=== PATIENT | female | born 1955 | race Caucasian/White ===

== ENCOUNTER 2016-07-15 22:56 | Inpatient (IN) | payer OTHER ==
--- NOTE | ~2016-07-15 | CR72 ---
[facility]. [facility] A Service of [facility] & [facility] RADIOLOGY TEXT RESULTS PATIENT: VIBHA PRESTON LOCATION: [facility] 303- : 59 UNIT #: [id number] AGE: [address]: Wilber Shaver MD SEX: F ORDER DR: [id number] [facility] [address] [place], [place] [address] [id number] I MR#: [id number] Acc #: [id number] NAME: VIBHA PRESTON. : 1955 SEX: F STUDY DATE/TIME: 07/17/2016 11:34 UNIT: [address] ROOM: [facility] STUDY DESCRIPTION: CR Chest Single View Portable Attending Physician: Wilber Shaver M.D. Ordering Physician: Kingston Montiel M.D. Primary Care Physician: Cookie Chao M.D. MEDICAL IMAGING REPORT This report is preliminary unless electronic signature is present EXAM Chest portable 07/17/2016 1134 hours. HISTORY 60-year-old woman with shortness of air, wheezing, known mass in right upper lobe. Increased shortness of air since 07/16/2016. COMPARISON Chest x-ray 07/15/[address] angiogram chest 07/16/2016 FINDINGS Single upright portable view demonstrates median sternotomy change with valve ring present. Heart size is stable. There is diffuse masslike opacification of the right upper lung similar to the film of 07/15/16. Right lung base is clear. Left lung remains clear and there is no pleural effusion or pneumothorax. IMPRESSION No change in large masslike opacification of the right upper lung. Right lung base and left lung remains clear. No effusion or pneumothorax. Dictated by... Brittni Dominique M.D. THIS IS AN ELECTRONICALLY VERIFIED REPORT Brittni Dominique M.D. at 07/17/2016 2:31 PM DARBY/seth TD: 07/17/2016 13:08 JOB #: [id number] MEDICAL IMAGING REPORT Page 1 of 1 COPY
--- NOTE | ~2016-07-15 | CO ---
Unit #: [id number] #: [id number] Patient: VIBHA PRESTON [id number] [facility] [address] [place], [place] [address] [id number] I MR#: [id number] NAME: VIBHA PRESTON. ROOM: 303 Age: 60 Sex: F Admission Date: 07/16/2016 : 1955 Attending Physician: Wilber Shaver M.D. Primary Care Physician: Cookie Chao M.D. CONSULTATION REPORT REFERRING PHYSICIAN Dr. Chang. CHIEF COMPLAINT Right shoulder pain/ER admission to [facility]. DIAGNOSIS Right upper lobe lung mass, pathology and workup pending. HISTORY OF PRESENT ILLNESS The patient is a 60-year-old female we have been asked to see regarding radiation therapy and her disease management by Dr. Chang. She is now hospitalized, room 303 at [facility]. She presented yesterday with right shoulder pain. Imaging was obtained and was abnormal, right upper lobe mass noted, full radiology details not available. She had a prior hospitalization earlier this year at [facility] for what was felt to be pneumonia with IV antibiotics given there. Workup is under way. CT-guided biopsy was scheduled for earlier today but had to be postponed. She is now anticipating this will be tomorrow. She reports no major recent changes in breathing. Her family is with her in the hospital room. ALLERGIES No known drug allergies. HOME MEDICATIONS 1. Alprazolam. 2. Omeprazole. 3. Warfarin. PAST RADIATION HISTORY None. PAST CHEMOTHERAPY HISTORY None. PAST MEDICAL HISTORY 1. Diabetes mellitus. 2. GERD. 3. Hyperlipidemia. 4. Hypertension. 5. History of tobacco abuse. Unit #: [id number] #: [id number] Patient: VIBHA PRESTON PAST SURGICAL HISTORY 1. Mechanical heart valve replacement. 2. Cholecystectomy. 3. Hysterectomy. FAMILY AND SOCIAL HISTORY The patient is , lives locally. Prior tobacco use, stopped earlier this year. Full details will be provided in subsequent dictation. PHYSICAL EXAMINATION She is alert and oriented. No focal cranial nerve deficits apparent. No acute distress. Full examination will be done in the radiation department. IMPRESSION/PLAN I met today with the patient and several family members who were in her room. She was unable to complete the CT-guided biopsy scheduled earlier for today. This will be repeated tomorrow. I have explained that we will need to get information from this procedure as well as her imaging studies upcoming such as a head CT scan and PET scan. Bronchoscopy is also planned. We will plan to see her as an outpatient. I did take a few minutes to discuss radiation therapy in general terms. We reviewed that surgery, radiation, and chemotherapy in combinations can all be used to treat as needed and this will all be worked out as her evaluation continues. I will return tomorrow with an appointment card for her for an outpatient visit here with Dr. Martinez. Dictated by... Babak Rico M.D. SHAYY/chuy TD: 07/17/2016 14:35 JOB #: [id number] CC: Reynaldo Kurtz M.D. CONSULTATION REPORT Page 1 of 1 X X CONSULTATION REPORT
--- NOTE | ~2016-07-15 | EKG ---
PATIENT: VIBHA PRESTON UNIT #: [id number] Ventricular Rate: 99 BPM Atrial Rate: 99 BPM P-R Interval: 190 ms QRS Duration: 140 ms Q-T Interval: 414 ms QTC Calculation(Bezet): 531 ms P [place]: -28 degrees Calculated R [place]: 111 degrees Calculated T [place]: -15 degrees Diagnosis Line: Sinus rhythm with occasional Premature ventricular Diagnosis Line: complexes Diagnosis Line: Right bundle branch block Diagnosis Line: Left posterior fascicular block Diagnosis Line: Bifascicular block Diagnosis Line: T wave abnormality, consider inferior ischemia Diagnosis Line: Abnormal ECG Diagnosis Line: When compared with ECG of 21-JUN-2015 10:11, Diagnosis Line: Sinus rhythm has replaced Ectopic atrial rhythm Diagnosis Line: T wave inversion less evident in Anterior leads Diagnosis Line: Confirmed by NINA GAMBLE MD ([id number]) on 07/17/2016 Diagnosis Line: 11:13:37 PM INTERPRETING MD: MAVIS EATON
--- NOTE | ~2016-07-15 | DS ---
Unit #: [id number] #: [id number] Patient: VIBHA PRESTON [id number] [address] [address] [id number] I MR#: [id number] NAME: VIBHA PRESTON. ROOM: 303 Age: 60 Sex: F Admission Date: 07/16/2016 : 1955 Discharge Date: 07/20/2016 Attending Physician: Wilber Shaver M.D. Primary Care Physician: Cookie Chao M.D. DISCHARGE SUMMARY REVISED REPORT Addendum Added ADMISSION DIAGNOSES 1. Large right upper lobe mass with right shoulder pain, likely representing primary lung cancer. 2. Status post mitral valve replacement, tissue, anticoagulated. 3. Essential hypertension. 4. Hyperglycemia without previous history of diabetes. DISCHARGE DIAGNOSES 1. Non-small cell lung cancer, obstructing mass right upper lobe which extended out into the right mainstem bronchus occluding the distal right mainstem and proximal bronchus intermedius by approximately 50%. 2. Brain metastasis. 3. Essential hypertension. 4. Type 2 diabetes mellitus, new diagnosis. 5. Moderate aortic regurgitation. 6. Right bundle-branch block. 7. Premature ventricular complexes. 8. Chronic obstructive pulmonary disease. 9. Hypothyroidism, new diagnosis. CONSULTANTS 1. Alejandro Chang M.D., oncology service. 2. Babak Rico M.D., radiation oncology center. 3. Aristeo Morales M.D., [facility] Cardiology. 4. Kingston Montiel M.D., pulmonary medicine. PROCEDURES Fiberoptic bronchoscopy. Postoperative diagnosis: Obstructing mass occluding the right upper lobe orifice and extending into right mainstem occluding right mainstem by approximately 50%. CT-guided fine needle aspiration and core biopsy with the following anatomical pathology report: Cores of pulmonary parenchyma containing infiltrating neoplasm composed of sheets of neoplastic cells with moderately enlarged nuclei and a moderate amount of surrounding pink somewhat granular cytoplasm. The nuclear chromatin is irregular with scattered prominent nucleoli identified as well as scattered mitotic figures. Neoplasm is associated with focal necrosis and inflammation. Immunohistochemical stain report to follow as an addendum. Unit #: [id number] #: [id number] Patient: VIBHA PRESTON DIAGNOSTIC STUDIES Most recent. LABORATORY: WBC 8.4, hemoglobin 10.3, hematocrit 32.5, platelet count 226,000 and sodium 136, potassium 4.5, chloride 103, CO2 25, glucose 259, BUN 16, creatinine 0.8, calcium 8.6, magnesium 2.1, hemoglobin A1C 8.0, TSH 14.01, free T4 0.52, PT 12.7, INR 1.2. IMAGING: Portable chest x-ray 07/18/16 with stable right upper lobe mass. No pneumothorax. Left lung clear. Heart size stable. Head CT with contrast 07/18/2016. Impression: Two enhancing masses are seen in the left cerebral hemisphere with surrounding vasogenic edema, one measuring about 1.0 cm and the other about 5.0 mm. Both are strongly suspicious for metastatic disease. CTA of the chest with PE protocol, study date 07/16/2016. Impression: Large mass occupying essentially the entire right upper lobe with a broad pleural and mediastinal interface and extending into the right hilum, with obliteration of the right upper lobe pulmonary artery and bronchus well as mass effect on the right main bronchus and bronchus intermedius. Findings in keeping with malignancy. Mild to moderately prominent subcarinal node. No evidence for pulmonary embolus. Right shoulder series 07/15/2016. Impression: No acute findings. Mild AC joint arthrosis persistent opacity right upper lobe. DISCHARGE MEDICATIONS The nurse has the discharge medication reconciliation form at the time of this dictation. Medications will be added as an addendum onto this discharge summary. DISCHARGE CONDITION Stable. DISPOSITION Home with family; formerly [facility] to follow after discharge per order of Dr. Chang. FOLLOWUP 1. Patient is to call and schedule a followup appointment with her primary care physician to be seen in three to five days to follow up on new diagnosis of type 2 diabetes mellitus. Patient has been given a prescription for glucometer as well as all diabetes testing supplies that she may need over the next 60 days and is covered by her insurance plan. All further refills will be through her primary care physician. Patient is to check her blood sugar b.i.d. preferably in the morning as a fasting sample and in evening after supper. She is to keep a record of her blood glucose levels and take them to her primary care physician for her review. The RN is to instruct the patient prior to discharge on glucometer use. 2. Patient is to schedule a followup appointment and follow with Dr. Chang per his instructions. 3. Patient is to follow up with Dr. Martinez as directed for further evaluation and management of the patient's condition in preparation for radiation therapy. Patient is to follow up with Dr. Morales as scheduled by the cardiology group prior to discharge today. 4. Patient is to follow up with her primary care physician in four to six Unit #: [id number] #: [id number] Patient: VIBHA PRESTON for repeat thyroid profile and for possible further Synthroid management. This has been discussed in detail with the patient and she verbalizes understanding of these instructions. 5. Patient was evaluated and qualified for home oxygen after discharge. [facility] is aware and per review of care management note will deliver the oxygen there. Again, the patient will be followed after discharge by [facility] home health services. 6. Per review of the care management note, the patient has an appointment to follow up with Dr. Chang in his office this coming Saturday. DISCHARGE INSTRUCTIONS 1. Per review of the care management note the patient required a PA for b.i.d. Lovenox. The family was able to pay for enough Lovenox for today (Saturday), Saturday and Saturday and will follow up in Dr. Chang's office on Saturday for further arrangements for this medication. 2. Per discussion with Dr. Montiel, he will make arrangements with Dr. Inez Sanchez for the patient to have an endoscopic debulking of the right lung tumor on an outpatient basis. Once these arrangements are made he will contact the patient at home in this regard. 3. The patient's Lovenox 1 mg/kg subcu q.12 h. will need to be held per orders from Dr. Montiel prior to the endoscopic debulking procedure. HOSPITAL COURSE The patient is a 60-year-old female who presented to [facility] on the date of admission with complaints of right shoulder pain. The patient underwent a chest x-ray in the emergency department which showed minimally increased density opacity in the right upper lobe. A CT scan was subsequently performed which revealed a large right upper lobe lung mass which extended into the right hilum and obliterated the right upper lobe, pulmonary artery and bronchus. Mass effect was also noted on the right main bronchus and bronchus intermedius. CT scan was negative for pulmonary embolus. The patient's findings were noted to be consistent with malignancy. She was admitted to the hospital for further evaluation and management of her condition. Dr. Chang, oncologist was consulted for further oncology evaluation and management. Per review of Dr. Chang's consultation notes, he recommended a CT-guided biopsy as well as bronchoscopic evaluation by Dr. Darwin Montiel whom he subsequently consulted. At that time further plan would include staging with a PET CT scan as well as a CT scan of the head with contrast and the possibility of concurrent chemoradiation therapy followed by Surgery is noted. Patient subsequently underwent a CT-guided fine needle and core biopsies as well as fiberoptic bronchoscopy with result as dictated above. No additional biopsies were taken as diagnosis of non-small cell lung cancer was obtained from fine needle and core biopsies. The patient tolerated the procedure well. She was also treated with low dose IV Solu-Medrol during the hospital course and O2 to maintain oxygen saturations greater than 92%. Patient met the criteria for home oxygen and this was arranged prior to discharge today. Patient was noted to have hyperglycemia on admission. Hemoglobin A1C returned at 8.0. Patient was informed of new diagnosis of type 2 diabetes mellitus. Please see discharge medications and discharge instructions above. Registered Dietitian consult was ordered to educate the patient on constant carbohydrate diet prior to discharge. Unit #: [id number] #: [id number] Patient: VIBHA PRESTON Patient was noted to have an abnormal 12-lead EKG at the time of admission and was also noted to have frequent intermittent PVCs during the hospital course. Therefore Dr. Morales was consulted for further cardiology evaluation and management. The patient is noted to have a history of tissue (bioprosthetic mitral valve) placed in [address] Isaac at [facility]. Patient had been on anticoagulation prior to presentation to the hospital. Patient was ultimately maintained on her current dose of home beta katerina. She is noted to have normal left ventricular systolic function upon review of an echocardiogram that was obtained from Dr. Mendenhall' office. Please note Cardiology has indicated that if the patient needs a surgical resection of the mass or lobectomy she may need further cardiac workup to rule out advancement of coronary artery disease given her history as a smoker with hypertension, diabetes, as well as a strong family history of premature onset of coronary artery disease. The patient is stable from a cardiac standpoint, is to follow up with Dr. Morales as dictated above. Given the patient's arrhythmias, TSH and free T4 were evaluated. Patient's TSH and free T4 both returned abnormal. Patient was started on Synthroid as dictated above for hypothyroidism which is a new diagnosis. The patient has been advised that she is to follow up with her primary care physician in four to six weeks for repeat thyroid profile and possible adjustment of Synthroid and she has verbalized understanding of this information. Dictated by... Yessica Jay A.P.R.N. for Reynaldo Ahuja/demetrius TD: 07/22/2016 18:37 JOB #: [id number] CC: Reynaldo Kurtz M.D. Arun K. Ummat, M.D. Mark R. Jones, M.D. ADDENDUM DISCHARGE MEDICATIONS 1. Hydralazine HCL 50 mg tablet one p.o. b.i.d. 2. Emollient combination to affected areas as directed. 3. Metoprolol succinate XL (Toprol XL) 75 mg p.o. daily. 4. Lovenox 60 mg subcu q.12 hours. 5. Metformin HCL 500 mg tab one tab every evening for seven days. After one week, take one tab with breakfast and dinner. 6. Levothyroxine sodium 0.05 mg tab one p.o. daily. 7. Symbicort 160/4.5 mcg two puffs inhaled b.i.d. 8. Prednisone 10 mg tabs. Dose to be confirmed. 9. Oxycodone-ACET (Percocet) 10/325 mg tablet one p.o. q.6 hours p.r.n. pain. 10. Albuterol sulfate 0.5 mL nebulizer inhaled q.4 hours p.r.n. wheezing. 11. Lasix 20 mg p.o. daily. 12. Xanax 1 mg p.o. per home instructions p.r.n. anxiety. Unit #: [id number] #: [id number] Patient: VIBHA PRESTON Dictated by... Yessica Jay A.P.R.N. for Reynaldo Ahuja/seth TD: 07/23/2016 09:46 JOB #: [id number] CC: Reynaldo Kurtz M.D. Arun K. Ummat, M.D. Mark R. Jones, M.D. Sovera/invision Please Delete DISCHARGE SUMMARY Page 1 of 1 X Yessica Jay APRN X DISCHARGE SUMMARY
--- NOTE | ~2016-07-15 | CT16 ---
[facility] A Service of [facility] & [facility] RADIOLOGY TEXT RESULTS PATIENT: VIBHA PRESTON LOCATION: [facility] 303-01 : 59 UNIT #: [id number] AGE: [address]: Wilber Shaver MD SEX: F ORDER DR: [id number] [facility] [address] [place], [place] [address] [id number] I MR#: [id number] Acc #: [id number] NAME: VIBHA PRESTON. : 1955 SEX: F STUDY DATE/TIME: 07/16/2016 2:16 UNIT: CEDOF ROOM: 65217 STUDY DESCRIPTION: CT Angio Chest for PE Attending Physician: Wilber Shaver M.D. Ordering Physician: Dayana Bryant M.D. Primary Care Physician: Cookie Chao M.D. MEDICAL IMAGING REPORT This report is preliminary unless electronic signature is present EXAM CTA chest PE protocol INDICATIONS Right shoulder pain. Abnormal chest radiograph. PROCEDURE Contrast-enhanced CTA of the chest attention on opacification of pulmonary arteries. Coronal 3-D MIP sagittal reformatted images reconstructed and submitted. 80 mL of Isovue-370. This CT exam was performed with one or more of the following radiation dose reduction techniques: automatic exposure control, adjustment of mA and/or kV according to patient size, and iterative reconstruction. COMPARISON Two-view chest on 07/15/2016 FINDINGS Mildly degraded by respiratory motion. No evidence for pulmonary embolus. There is dense mass in the right upper lobe. This completely obliterates the right upper lobe pulmonary artery. The mass abuts the mediastinum and extends into the right hilum, overall measuring approximately 11.9 x 9.8 cm. There is some mass effect and narrowing on the right main bronchus. Complete obliteration of the right upper lobe bronchus. Mildly prominent right subcarinal node measures up 2.4 x 1.5 cm. No acute findings are seen in the included upper abdomen. No aggressive appearing bone lesion. The left lung is clear. IMPRESSION 1. Large mass occupying essentially the entire right upper lobe with a broad pleural and mediastinal interface and extending into the right STS. [facility] A Service of [facility] & [facility] RADIOLOGY TEXT RESULTS PATIENT: VIBHA PRESTON LOCATION: [facility] 303-01 : 59 UNIT #: [id number] AGE: [address]: Wilber Shaver MD SEX: F ORDER DR: hilum, with obliteration of the right upper lobe pulmonary artery and bronchus well as mass effect on the right main bronchus and bronchus intermedius. Findings in keeping with malignancy. 2. Mild to moderately prominent subcarinal node. 3. No evidence for pulmonary embolus. Dictated by... Anuel Griffin M.D. THIS IS AN ELECTRONICALLY VERIFIED REPORT Anuel Griffin M.D. at 07/16/2016 9:55 PM Bryce TD: 07/16/2016 08:13 JOB #: [id number] MEDICAL IMAGING REPORT Page 1 of 1 COPY
--- NOTE | ~2016-07-15 | CR72 ---
[facility] A Service of [facility] RADIOLOGY TEXT RESULTS PATIENT: VIBHA PRESTON LOCATION: [facility] 303- : 59 UNIT #: [id number] AGE: [address]: Wilber Shaver MD SEX: F ORDER DR: [id number] [facility] [address] [place], [place] [address] [id number] I MR#: [id number] Acc #: [id number] NAME: VIBHA PRESTON. : 1955 SEX: F STUDY DATE/TIME: 07/18/2016 12:00 UNIT: [address] ROOM: [facility] STUDY DESCRIPTION: CR Chest Single View Portable Attending Physician: Wilber Shaver M.D. Ordering Physician: Alejandro Chang M.D. Primary Care Physician: Cookie Chao M.D. MEDICAL IMAGING REPORT This report is preliminary unless electronic signature is present EXAM Portable chest. HISTORY 60-year-old female with right lung mass, status post right lung biopsy. COMPARISON Yesterday FINDINGS Stable right upper lobe mass. No pneumothorax. Left lung clear. Heart size stable. IMPRESSION Stable right upper lobe mass. Dictated by... Rico Bojorquez M.D. THIS IS AN ELECTRONICALLY VERIFIED REPORT Rico Bojorquez M.D. at 07/19/2016 8:57 AM JACK/riccardo TD: 07/18/2016 13:30 JOB #: [id number] MEDICAL IMAGING REPORT Page 1 of 1 COPY
--- NOTE | ~2016-07-15 | CR230 ---
[facility] A Service of [facility] RADIOLOGY TEXT RESULTS PATIENT: VIBHA PRESTON LOCATION: [facility] : 59 UNIT #: [id number] AGE: [address]: Wilber Shaver MD SEX: F ORDER DR: [id number] [facility] [address] [place], [place] [address] [id number] I MR#: [id number] Acc #: [id number] NAME: VIBHA PRESTON. : 1955 SEX: F STUDY DATE/TIME: 07/15/2016 23:09 UNIT: CED ROOM: 14579 STUDY DESCRIPTION: CR Shoulder Min 2 View Rt Attending Physician: Wilber Shaver M.D. Ordering Physician: Dayana Bryant M.D. Primary Care Physician: Cookie Chao M.D. MEDICAL IMAGING REPORT This report is preliminary unless electronic signature is present EXAM Right shoulder series INDICATIONS Right shoulder pain since May 2015 PROCEDURE 2 views of the right shoulder. COMPARISON Two-view chest from 06/01/2016 FINDINGS Mild AC joint arthrosis. No acute fracture or dislocation. Persistent opacity right upper lobe. IMPRESSION 1. No acute bone findings. 2. Mild AC joint arthrosis. 3. Persistent opacity right upper lobe. Dictated by... Anuel Griffin M.D. THIS IS AN ELECTRONICALLY VERIFIED REPORT Anuel Griffin M.D. at 07/16/2016 9:56 PM LI/george TD: 07/16/2016 07:08 JOB #: [id number] MEDICAL IMAGING REPORT Page 1 of 1 COPY
--- NOTE | ~2016-07-15 | HP ---
Unit #: [id number] #: [id number] Patient: VIBHA PRESTON [id number] [address] [place], [place] [address] [id number] I MR#: [id number] NAME: VIBHA PRESTON. ROOM: 56362 Age: 60 Sex: F Admission Date: 07/16/2016 : 1955 Attending Physician: Vanessa Ledesma M.D. Primary Care Physician: Cookie Chao M.D. HISTORY AND PHYSICAL CHIEF COMPLAINT Right shoulder pain with Pancoast tumor. HISTORY This 60-year-old female, status post mitral valve replacement with history of hypertension, is admitted for right shoulder pain and found to have a large right upper lobe lung mass. The patient was admitted to [facility] about six weeks ago for right upper lobe pneumonia. States that she felt improved after antibiotics at the time of discharge. Has been experiencing dyspnea on exertion recently and weight loss. A week ago noted increasing right shoulder pain. Presented to this emergency department last evening where chest x-ray showed minimally increased density opacity in the right upper lobe. Therefore, a CT scan was ordered showing a large right upper lobe lung mass extending into the right hilum obliterating the right upper lobe pulmonary artery and bronchus. There is also a mass effect on the right main bronchus and bronchus intermedius. Subcarinal lymph node was also noted to be enlarged. The patient stopped smoking eight years ago. PAST MEDICAL HISTORY 1. Mitral valve replacement for which the patient is anticoagulated. 2. Hypertension. 3. Hyperglycemia noted on admission to [facility] six weeks ago but the patient denies history of diabetes. 4. Cholecystectomy. 5. MARINA and BSO. ALLERGIES None. HOME MEDICATIONS 1. Coumadin 5 mg daily. 2. Lopressor 100 mg b.i.d. 3. Xanax 1 mg p.r.n. FAMILY HISTORY Diabetes mellitus, malignancy, congestive heart failure. SOCIAL HISTORY The patient lives with her brother. She stopped smoking eight years ago, does not drink alcohol. REVIEW OF SYSTEMS Unit #: [id number] #: [id number] Patient: VIBHA PRESTON Notable for right arm pain, weight loss, dyspnea, mitral valve replacement, hypertension, hyperlipidemia, above mentioned surgeries. All other systems were reviewed and are otherwise negative. PHYSICAL EXAMINATION GENERAL APPEARANCE: 60-year-old female, currently in no acute distress. She is intermittently tearful. VITAL SIGNS: Temperature 98.5, pulse 97, respirations 16, blood pressure 142/94. O2 saturation 97% on room air. HEENT: Eyes PERRLA. Extraocular muscles are intact. Pharynx is benign. Edentulous. NECK: Supple without adenopathy or thyromegaly. CHEST: Actually fairly clear. CARDIAC: Normal S1 and S2. [place] prosthetic valve sounds, occasionally irregular. ABDOMEN: Bowel sounds are present. No hepatosplenomegaly, tenderness or masses. EXTREMITIES: Without clubbing, cyanosis or edema. Pedal pulses are present. LYMPHS: No cervical, supraclavicular or axillary lymphadenopathy. NEUROLOGIC EXAM: The patient is awake, alert, oriented. Cranial nerves are intact. She has +5 out of 5 strength throughout. Some slight difficulty with rapid alternating movements on the right. Normal kqlmaz-es-wnka, negative pronator drift. She was able to sit up with minimal assistance. DIAGNOSTIC STUDIES LABORATORY: Admission labs - hematocrit is 41.2, normal white count and platelet count. INR is 2.7. SMA-12 - glucose I 277, sodium 134. BNP normal. LFTs are normal. IMAGING: Plain x-rays of the right shoulder show a persistent right upper lobe density but the shoulder itself only showed some mild DJD. Chest x-ray shows minimally increased dense opacity right upper lobe. CT scan negative for PE. Shows a large mass right upper lobe extending into the right hilum with obliteration of the right upper lobe pulmonary artery and bronchus and mass effect on the right main bronchus and bronchus intermedius. This is consistent with malignancy. There is an enlarged subcarinal lymph node. ASSESSMENT 1. Large right upper lobe mass with right shoulder pain, likely representing primary lung cancer. 2. Status post mitral valve replacement, anticoagulated. 3. Essential hypertension. 4. Hyperglycemia but patient denies history of diabetes mellitus. PLANS 1. Pulmonary and oncology consultation. 2. Will hold Coumadin as patient will need biopsy. Will order heparin drip when INR is less than 2.5. 3. Pain and anxiety medicines. Unit #: [id number] #: [id number] Patient: VIBHA PRESTON 4. Sliding scale insulin, and Accu-Cheks. Will obtain a hemoglobin A1c. 5. Type and screen. 6. EKG. Dictated by Reynaldo Miller/nicanor TD: 07/16/2016 05:33 JOB #: [id number] HISTORY AND PHYSICAL Page 1 of 1 X Vanessa Ledesma MD X HISTORY AND PHYSICAL
--- NOTE | ~2016-07-15 | CT134 ---
[facility]. [facility] A Service of [facility] RADIOLOGY TEXT RESULTS PATIENT: VIBHA PRESTON LOCATION: [facility] 303-01 : [birth year] UNIT #: [id number] AGE: [address]: Wilber Shaver MD SEX: F ORDER DR: [id number] [address] [place], [place] [address] [id number] I MR#: [id number] Acc #: [id number] NAME: VIBHA PRESTON. : 1955 SEX: F STUDY DATE/TIME: 07/18/2016 9:00 UNIT: [address] ROOM: [facility] STUDY DESCRIPTION: CT Guide Attending Physician: Wilber Shaver M.D. Ordering Physician: Alejandro Chang M.D. Primary Care Physician: Cookie Chao M.D. MEDICAL IMAGING REPORT This report is preliminary unless electronic signature is present EXAM CT-guided right lung biopsy 07/18/2016 INDICATIONS 60-year-old female with right lung mass suspicious for malignancy. Medications were per general anesthesia. General anesthesia was provided by the anesthesia department. PROCEDURE The risks, benefits, and alternatives of the procedure were discussed with the patient and informed consent was obtained. In the procedure room a time-out was performed confirming correct patient and procedure. All elements of maximum sterile-barrier technique utilized according guidelines appropriate for the procedure. TECHNIQUE/FINDINGS Preliminary CT scan was performed demonstrating the large right upper lobe mass. The overlying skin was prepped and draped in the usual sterile fashion. 1% lidocaine utilized to anesthetize the skin and underlying subcutaneous tissues. Next under CT guidance 17-gauge guide needle was advanced into the right upper lobe mass. Through this access an 18-gauge needle was utilized to obtain 3 core biopsies and they were sent to pathology. The needle was removed and a sterile dressing was applied. No immediate complications. IMPRESSION Technically successful CT-guided right lung mass biopsy. Dictated by... Rico Bojorquez M.D. [facility] A Service of [facility] RADIOLOGY TEXT RESULTS PATIENT: VIBHA PRESTON LOCATION: [facility] 303-01 : [birth year] UNIT #: [id number] AGE: [address]: Wilber Shaver MD SEX: F ORDER DR: THIS IS AN ELECTRONICALLY VERIFIED REPORT Rico Bojorquez M.D. at 07/19/2016 8:58 AM Amari TD: 07/18/2016 17:03 JOB #: [id number] MEDICAL IMAGING REPORT Page 1 of 1 COPY
--- NOTE | ~2016-07-15 | A ---
[facility] Nutrition Therapy DATE: 07/20/16 Patient: VIBHA Fink MOHAN Physician: VIRGIL Address: [address] Room/Bed: [address] [place] [address], Zip: [place] [address] Admit Date: 07/16/16 Date of : [birth year] Height: 5 3 Weight: 159 72.4 NUTRITIONAL ASSESSMENT: REASON: C/S DIET EDUCATION RD PROVIDED WRITTEN AND VERBAL CC DIET EDUCATION. RD SPOKE ON IMPORTANCE OF EATING A CONSISTENT MEAL SCHEDULE W/BALANCED MEALS DAILY WELL PROVIDED LIST OF FOODS TO AVOID/LIMIT AND FOODS TO EAT MORE OFTEN TO MANAGE DM. PT REPORTED DRINKING SODAS AND JUICE DAILY. PT WILLING TO CUT BACK ON SODA INTAKE AND DRINK MORE WATER. PT VERBALIZED UNDERSTANDING OF THE TOPIC. PT REPORTED NO DIET QUESTIONS AT THIS TIME. PT EXPECTED TO HAVE MILD COMPLIANCE W/DIET WHEN HOME. RD TO REMAIN AVAILABLE. RECOMMENDATIONS: 1. ADVANCE DIET TOLERATED TO CC-ENCOURAGE COMPLIANCE OF CURRENT DIET ORDER 2. RE-CONSULT RD IF FURTHER DIET EDUCATION NEEDED RD WILL F/U PER PROTOCOL Respectfully, ADELSO MCKENZIE MS, RD, LD Food and Nutritional Services [facility] cc: client file
--- NOTE | ~2016-07-15 | DS ---
Unit #: [id number] #: [id number] Patient: VIBHA PRESTON [id number] [address] [address] [id number] I MR#: [id number] NAME: VIBHA PRESTON. ROOM: 303 Age: 60 Sex: F Admission Date: 07/16/2016 : 1955 Discharge Date: 07/20/2016 Attending Physician: Wilber Shaver M.D. Primary Care Physician: Cookie Chao M.D. DISCHARGE SUMMARY ADMISSION DIAGNOSES 1. Large right upper lobe mass with right shoulder pain, likely representing primary lung cancer. 2. Status post mitral valve replacement, tissue, anticoagulated. 3. Essential hypertension. 4. Hyperglycemia without previous history of diabetes. DISCHARGE DIAGNOSES 1. Nonsquamous cell lung cancer, obstructing mass right upper lobe which extended out into the right mainstem bronchus occluding the distal right mainstem and proximal bronchus intermedius by approximately 50%. 2. Brain metastasis. 3. Essential hypertension. 4. Type 2 diabetes mellitus, new diagnosis. 5. Moderate aortic regurgitation. 6. Right bundle-branch block. 7. Premature ventricular complexes. 8. Chronic obstructive pulmonary disease. 9. Hypothyroidism, new diagnosis. CONSULTANTS 1. Alejandro Chang M.D., oncology service. 2. Babak Rico M.D., radiation oncology center. 3. Aristeo Morales M.D., [facility] Cardiology. 4. Kingston Montiel M.D., pulmonary medicine. PROCEDURES Fiberoptic bronchoscopy. Postoperative diagnosis: Obstructing mass occluding the right upper lobe orifice and extending into right mainstem occluding right mainstem by approximately 50%. CT-guided fine needle aspiration and core biopsy with the following anatomical pathology report: Cores of pulmonary parenchyma containing infiltrating neoplasm composed of sheets of neoplastic cells with moderately enlarged nuclei and a moderate amount of surrounding pink somewhat granular cytoplasm. The nuclear chromatin is irregular with scattered prominent nucleoli identified as well as scattered mitotic figures. Neoplasm is associated with focal necrosis and inflammation. Immunohistochemical stain report to follow as an addendum. DIAGNOSTIC STUDIES Most recent. Unit #: [id number] #: [id number] Patient: VIBHA PRESTON LABORATORY: WBC 8.4, hemoglobin 10.3, hematocrit 32.5, platelet count 226,000 and sodium 136, potassium 4.5, chloride 103, CO2 25, glucose 259, BUN 16, creatinine 0.8, calcium 8.6, magnesium 2.1, hemoglobin A1C 8.0, TSH 14.01, free T4 0.52, PT 12.7, INR 1.2. IMAGING: Portable chest x-ray 07/18/16 with stable right upper lobe mass. No pneumothorax. Left lung clear. Heart size stable. Head CT with contrast 07/18/2016. Impression: Two enhancing masses are seen in the left cerebral hemisphere with surrounding vasogenic edema, one measuring about 1.0 cm and the other about 5.0 mm. Both are strongly suspicious for metastatic disease. CTA of the chest with PE protocol, study date 07/16/2016. Impression: Large mass occupying essentially the entire right upper lobe with a broad pleural and mediastinal interface and extending into the right hilum, with obliteration of the right upper lobe pulmonary artery and bronchus well as mass effect on the right main bronchus and bronchus intermedius. Findings in keeping with malignancy. Mild to moderately prominent subcarinal node. No evidence for pulmonary embolus. Right shoulder series 07/15/2016. Impression: No acute findings. Mild AC joint arthrosis persistent opacity right upper lobe. DISCHARGE MEDICATIONS The nurse has the discharge medication reconciliation form at the time of this dictation. Medications will be added as an addendum onto this discharge summary. DISCHARGE CONDITION Stable. DISPOSITION Home with family; [facility] to follow after discharge per order of Dr. Chang. FOLLOWUP 1. Patient is to call and schedule a followup appointment with her primary care physician to be seen in three to five days to follow up on new diagnosis of type 2 diabetes mellitus. Patient has been given a prescription for glucometer as well as all diabetes testing supplies that she may need over the next 60 days and is covered by her insurance plan. All further refills will be through her primary care physician. Patient is to check her blood sugar b.i.d. preferably in the morning as a fasting sample and in evening after supper. She is to keep a record of her blood glucose levels and take them to her primary care physician for her review. The RN is to instruct the patient prior to discharge on glucometer use. 2. Patient is to schedule a followup appointment and follow with Dr. Chang per his instructions. 3. Patient is to follow up with Dr. Martinez as directed for further evaluation and management of the patient's condition in preparation for radiation therapy. Patient is to follow up with Dr. Morales as scheduled by the cardiology group prior to discharge today. 4. Patient is to follow up with her primary care physician in four to six weeks for repeat thyroid profile and for possible further Synthroid management. This has been discussed in detail with the patient and she verbalizes understanding of these instructions. Unit #: [id number] #: [id number] Patient: VIBHA PRESTON 5. Patient was evaluated and qualified for home oxygen after discharge. [facility] is aware and per review of care management note will deliver the oxygen there. Again, the patient will be followed after discharge by [facility] home health services. 6. Per review of the care management note, the patient has an appointment to follow up with Dr. Chang in his office this coming Saturday. DISCHARGE INSTRUCTIONS 1. Per review of the care management note the patient required a PA for b.i.d. Lovenox. The family was able to pay for enough Lovenox for today (Saturday), Saturday and Saturday and will follow up in Dr. Chang's office on Saturday for further arrangements for this medication. 2. Per discussion with Dr. Montiel, he will make arrangements with Dr. Inez Sanchez for the patient to have an endoscopic debulking of the right lung tumor on an outpatient basis. Once these arrangements are made he will contact the patient at home in this regard. 3. The patient's Lovenox 1 mg/kg subcu q.12 h. will need to be held per orders from Dr. Montiel prior to the endoscopic debulking procedure. HOSPITAL COURSE The patient is a 60-year-old female who presented to [facility] on the date of admission with complaints of right shoulder pain. The patient underwent a chest x-ray in the emergency department which showed minimally increased density opacity in the right upper lobe. A CT scan was subsequently performed which revealed a large right upper lobe lung mass which extended into the right hilum and obliterated the right upper lobe, pulmonary artery and bronchus. Mass effect was also noted on the right main bronchus and bronchus intermedius. CT scan was negative for pulmonary embolus. The patient's findings were noted to be consistent with malignancy. She was admitted to the hospital for further evaluation and management of her condition. Dr. Chang, oncologist was consulted for further oncology evaluation and management. Per review of Dr. Chang's consultation notes, he recommended a CT-guided biopsy as well as bronchoscopic evaluation by Dr. Darwin Montiel whom he subsequently consulted. At that time further plan would include staging with a PET CT scan as well as a CT scan of the head with contrast and the possibility of concurrent chemoradiation therapy followed by Surgery is noted. Patient subsequently underwent a CT-guided fine needle and core biopsies as well as fiberoptic bronchoscopy with result as dictated above. No additional biopsies were taken as diagnosis of non-small cell lung cancer was obtained from fine needle and core biopsies. The patient tolerated the procedure well. She was also treated with low dose IV Solu-Medrol during the hospital course and O2 to maintain oxygen saturations greater than 92%. Patient met the criteria for home oxygen and this was arranged prior to discharge today. Patient was noted to have hyperglycemia on admission. Hemoglobin A1C returned at 8.0. Patient was informed of new diagnosis of type 2 diabetes mellitus. Please see discharge medications and discharge instructions above. Registered Dietitian consult was ordered to educate the patient on constant carbohydrate diet prior to discharge. Patient was noted to have an abnormal 12-lead EKG at the time of admission Unit #: [id number] #: [id number] Patient: VIBHA PRESTON and was also noted to have frequent intermittent PVCs during the hospital course. Therefore Dr. Morales was consulted for further cardiology evaluation and management. The patient is noted to have a history of tissue (bioprosthetic mitral valve) placed in [address] Isaac at [facility]. Patient had been on anticoagulation prior to presentation to the hospital. Patient was ultimately maintained on her current dose of home beta katerina. She is noted to have normal left ventricular systolic function upon review of an echocardiogram that was obtained from Dr. Mendenhall' office. Please note Cardiology has indicated that if the patient needs a surgical resection of the mass or lobectomy she may need further cardiac workup to rule out advancement of coronary artery disease given her history as a smoker with hypertension, diabetes, as well as a strong family history of premature onset of coronary artery disease. The patient is stable from a cardiac standpoint, is to follow up with Dr. Morales as dictated above. Given the patient's arrhythmias, TSH and free T4 were evaluated. Patient's TSH and free T4 both returned abnormal. Patient was started on Synthroid as dictated above for hypothyroidism which is a new diagnosis. The patient has been advised that she is to follow up with her primary care physician in four to six weeks for repeat thyroid profile and possible adjustment of Synthroid and she has verbalized understanding of this information. Dictated by... Yessica Jay A.P.R.N. for Reynaldo Ahuja/demetrius TD: 07/22/2016 18:37 JOB #: [id number] CC: Reynaldo Kurtz M.D. Arun K. Ummat, M.D. Mark R. Jones, M.D. DISCHARGE SUMMARY Page 1 of 1 X Yessica Jay APRN DISCHARGE SUMMARY
--- NOTE | ~2016-07-15 | CO ---
Unit #: [id number] #: [id number] Patient: VIBHA PRESTON [id number] [facility] [address] [facility]. [place], [place] [address] [id number] MR#: [id number] NAME: VIBHA PRESTON ROOM: 303 Age: 60 Sex: F Admission Date: 07/16/2016 : 1955 Attending Physician: Wilber Shaver M.D. Primary Care Physician: Cookie Chao M.D. Consultation Date: 07/25/2016 CONSULTATION REPORT Ms. Preston is a 60-year-old female we were asked to see for right upper lobe tumor. She had been admitted to [facility] six weeks ago for right upper lobe pneumonia. She said that she was treated with antibiotics and had improved at the time of discharge. She had noted increased dyspnea and right shoulder pain and presented to the emergency room here at [facility] where a chest x-ray showed right upper lobe opacity. CT scan was done, which showed a large right upper lobe mass extending from the right hilum, obliterating the right upper lobe, pulmonary artery and bronchus. There was mass effect on the right main bronchus and bronchus intermedius. Subcarinal nodes were also enlarged. She is a reformed smoker x8 years. She had had no hemoptysis. No fever or chills. PAST MEDICAL HISTORY Significant for mitral valve replacement for which she is anticoagulated. She has a history of hypertension, history of hyperglycemia. PAST SURGICAL HISTORY Cholecystectomy, total abdominal hysterectomy and BSO. ALLERGIES No known allergies. HOME MEDICATIONS Coumadin, Lopressor, and Xanax. FAMILY HISTORY Diabetes, malignancy, congestive heart failure. SOCIAL HISTORY Lives with brother, stopped smoking eight years ago. NO alcohol or illicit drugs. REVIEW OF SYSTEMS Does have a history no rhinorrhea, nasal congestion. Has had some weight loss. Has had some right arm pain. He is dyspneic on exertion. History of mitral valve replacement. Does have a history of hypertension, hyperlipidemia. Other systems negative. PHYSICAL EXAMINATION GENERAL: Pleasant, obese, female in no distress. VITAL SIGNS: Blood pressure is 140/90, pulse is 95, respiratory rate 16 and afebrile. O2 sat 97% on room air. HEENT: Normocephalic and atraumatic. Pupils equal, round, reactive. Unit #: [id number] #: [id number] Patient: VIBHA PRESTON Sclerae are nonicteric. Nasal passages patent. Posterior pharynx clear. Mucous membranes moist. NECK: Supple. Trachea midline. No cervical or supraventricular lymphadenopathy. LUNGS: Fairly clear. CARDIAC: Regular rate and rhythm, could not appreciate murmur, rub or gallop. ABDOMEN: Nontender. Bowel sounds present. No hepatosplenomegaly. EXTREMITIES: Without clubbing, cyanosis or edema. Akash sign negative. NEUROLOGIC: Awake and oriented x3. Cranial nerves grossly intact. Muscle strength symmetric bilaterally. DIAGNOSTIC STUDIES LABORATORY STUDIES: PT INR is 2.7. BMP is remarkable for a glucose of 277, sodium 134. LFTs are normal. IMAGING STUDIES: Chest x-ray is noted. CT scan personally reviewed as noted. IMPRESSION 1. Right upper lobe mass with obstruction to right upper lobe and possibly some encroachment on the right mainstem and bronchus intermedius. 2. Probable underlying COPD. 3. Mitral valve replacement on anticoagulation. 4. Hypertension. 5. Hyperlipidemia. PLAN A CT directed biopsy has already been ordered by oncology for right upper lobe mass. Will await path. Suspect needs a bronchoscopy to evaluate airway and encroachment on right mainstem. May need some type of debulking procedure. Will make further recommendations. ADDENDUM If biopsies are done will need coverage for bacterial endocarditis with ampicillin 2 g p.o. or IV preprocedure. Coumadin is being held and ProTime is being corrected. Dictated by... Kingston Montiel M.D. YVROSE/bryanna TD: 07/26/2016 10:54 JOB #: [id number] Unit #: [id number] #: [id number] Patient: VIBHA PRESTON CONSULTATION REPORT Page 1 of 1 X Kingston Montiel MD CONSULTATION REPORT
--- NOTE | ~2016-07-15 | CO ---
Unit #: [id number] #: [id number] Patient: VIBHA PRETSON [id number] [address] [place], [place] [address] [id number] I MR#: [id number] NAME: VIBHA PRESTON ROOM: 303 Age: 60 Sex: F Admission Date: 07/16/2016 : 1955 Attending Physician: Wilber Shaver M.D. Primary Care Physician: Cookie Chao M.D. CONSULTATION REPORT REASON FOR CONSULTATION Abnormal electrocardiogram. HISTORY OF PRESENT ILLNESS This is a 60-year-old white female who is known to Dr. Aguilar Mendenhall who has a history of bioprosthetic mitral valve replacement in 2001. She is known to have paroxysmal atrial fibrillation and is on anticoagulation with Coumadin. The patient is admitted because of an episode of chest pain. At 9:30 p.m. on the night of her admission she was lying in bed. She began to have substernal chest pain that radiated to her mid back that lasted up to 5 seconds. She had no associated dyspnea, diaphoresis, nausea or palpitations. She drank milk prior to lying down. She ate earlier in the day. She was recently discharged from [facility] May of this year, and she was treated for pneumonia. Since leaving the hospital, she has had a 30-pound weight loss. She has stopped smoking a month and a half ago after that admission. During the course of her stay, CT of the chest revealed a large mass in the right upper lobe with a mediastinal interface and extending into the right hilum and obliteration of the right upper lobe pulmonary artery and bronchus. Findings were concerning for malignancy. She has been seen by oncology, and biopsy was obtained today. Planned for chemotherapy prior to potential surgery. Her INR on admission was 2.7, however. Coumadin was discontinued, and the patient has been started on a heparin drip. She developed frequent premature ventricular complexes. Her electrocardiogram was thought to be abnormal; therefore, cardiology was consulted. PAST MEDICAL HISTORY 1. Two-D echocardiogram, 05/17/2015, in Dr. Mendenhall' office showed an ejection fraction of 55% to 60% with trace tricuspid regurgitation. Bioprosthetic mitral valve that is well seated. Trace tricuspid regurgitation and moderate aortic regurgitation. No aortic stenosis. 2. Cardiac catheterization in [address] Morales, which revealed left main 30% near its ostium. LAD and right coronary artery normal. Left circumflex artery 40% to 50%. Ejection fraction 20% to 30%. Severe mitral regurgitation. 3. Lexiscan Cardiolite stress test, 06/21/2015, showed no ischemia with ejection fraction of 56%. 4. Paroxysmal atrial fibrillation, on anticoagulation with Coumadin. Unit #: [id number] #: [id number] Patient: VIBHA PRESTON 5. Mitral valve replacement with bioprosthetic valve in [address] Isaac at [facility]. 6. Hypertension. 7. Recently diagnosed diabetes mellitus type 2. 8. COPD. 9. Right bundle branch block. 10. Hyperlipidemia. 11. Former smoker. PAST SURGICAL HISTORY 1. Mitral valve replacement in 2001. 2. Hysterectomy. 3. Cholecystectomy. SOCIAL HISTORY The patient lives with her brother. She cares for a young grandson. Quit smoking in May of this year. Denies illicit drug or alcohol use. FAMILY HISTORY Positive for heart disease in both parents. Had a brother with Down syndrome who from congestive heart failure. Another brother from cancer. ALLERGIES No known drug allergies. HOME MEDICATIONS 1. Albuterol q.4 hours p.r.n. 2. Coumadin 5 mg daily. 3. Xanax 1 mg daily p.r.n. 4. Metoprolol succinate 100 mg b.i.d. 5. Furosemide 20 mg daily. REVIEW OF SYSTEMS CONSTITUTIONAL: Negative for fever or chills. Reports 30-pound weight loss in the past month and a half. No weight gain. HEENT: No headache, hearing or visual changes or difficulty with swallowing. No dizziness. CARDIOVASCULAR: Has chest pain as described in the HPI. Denies palpitations. No paroxysmal nocturnal dyspnea or orthopnea. Denies syncope or near syncope. RESPIRATORY: Positive for dyspnea with a cough. Had an episode of hemoptysis. GASTROINTESTINAL: No abdominal pain, nausea or vomiting. No constipation or melena. EXTREMITIES: Negative for lower extremity edema. PHYSICAL EXAMINATION VITAL SIGNS: Blood pressure 144/83, heart rate 67, temperature 98, BMI 30. GENERAL: This is a pleasant, mildly obese, 60-year-old white female who is in no acute respiratory distress. NEUROLOGIC: She is awake, alert and oriented. There are no focal weaknesses. NECK: Trachea is midline. No thyromegaly or lymphadenopathy. No jugular venous distention. HEART: S1, S2. Heart sounds are normal with prosthetic valve normal. A grade 2/6 systolic murmur heard best at the right systolic border. Regular rate and rhythm. Unit #: [id number] #: [id number] Patient: VIBHA PRESTON CHEST: Clear to auscultation without rales, rhonchi or wheezing. ABDOMEN: Soft, nontender with bowel sounds present. EXTREMITIES: Without leg edema. SKIN: Warm and dry. DIAGNOSTIC STUDIES LABORATORY STUDIES: Hemoglobin 12, hematocrit 36.8, platelet count 264, white count 7.9. Sodium 132, potassium 4, BUN 8, creatinine 0.8, glucose 164, magnesium 1.8. TSH 14.01, free T4 0.52. Hemoglobin A1C 8. BNP 31. IMAGING: CT angio of the chest shows a large mass occupying essentially the entire right upper lobe with a broad pleural and mediastinal interface and extending into the right hilum, with obliteration of the right upper lobe pulmonary artery and bronchus. Findings in keeping with malignancy. No evidence for pulmonary embolism. CARDIOVASCULAR STUDIES: Electrocardiogram shows normal sinus rhythm with a rate of 99 beats per minute with right bundle branch block, left posterior fascicular block, premature ventricular complexes, and there are T wave inversions in the inferior leads. Rhythm strips show bigeminal premature ventricular complexes. IMPRESSION 1. Probable right upper lobe malignancy. 2. Status post bioprosthetic mitral valve prosthesis with severe mitral regurgitation in 2001. 3. Moderate aortic regurgitation. 4. Right bundle branch block. 5. Premature ventricular complexes. 6. Chest pain questionably secondary to GERD versus coronary artery disease. 7. COPD. PLAN 1. Cardiology was consulted for frequent premature ventricular complexes. Will continue on current beta-katerina. 2. Review of echocardiogram from Dr. Mendenhall' office shows normal left ventricular systolic function. 3. If the patient needs surgical resection of the mass or lobectomy, she may need further cardiac workup to rule out advancement of coronary artery disease in a smoker, hypertensive, diabetic with a strong family history of premature onset of coronary artery disease. 4. Will follow the patient. 5. Thank you for allowing us to assist with this patient's care. Dictated by... Luke Lopez A.P.R.N. for Reynaldo Sharma/dayne TD: 07/18/2016 07:36 JOB #: [id number] Unit #: [id number] #: [id number] Patient: VIBHA PRESTON CONSULTATION REPORT Page 1 of 1 X Luke Lopez APRN X CONSULTATION REPORT
--- NOTE | ~2016-07-15 | CR63 ---
[facility] A Service of [facility] & [facility] RADIOLOGY TEXT RESULTS PATIENT: VIBHA PRESTON LOCATION: [facility] [address] : [birth year] UNIT #: [id number] AGE: [address]: Wilber Shaver MD SEX: F ORDER DR: [id number] [facility] [address] [facility]. [place], [place] [address] [id number] I MR#: [id number] Acc #: [id number] NAME: VIBHA PRESTON : 1955 SEX: F STUDY DATE/TIME: 07/15/2016 23:10 UNIT: CEDOF ROOM: 68815 STUDY DESCRIPTION: CR Chest 2 View Attending Physician: Wilber Shaver M.D. Ordering Physician: Dayana Bryant M.D. Primary Care Physician: Cookie Chao M.D. MEDICAL IMAGING REPORT This report is preliminary unless electronic signature is present EXAM Two-view chest INDICATIONS Right shoulder pain since May 2016. PROCEDURE Frontal lateral views of the chest COMPARISON 06/01/2016 FINDINGS Persistent opacity right upper lobe. Slightly progressed into the right apex. Heart size is stable and there is no new dense consolidation left lung. IMPRESSION Minimally increasing dense opacity in the right upper lobe. Dictated by... Anuel Griffin M.D. THIS IS AN ELECTRONICALLY VERIFIED REPORT Anuel Griffin M.D. at 07/16/2016 9:56 PM LI/george TD: 07/16/2016 07:10 JOB #: [id number] MEDICAL IMAGING REPORT Page 1 of 1 COPY
--- NOTE | ~2016-07-15 | CT69 ---
[facility] A Service of [facility] RADIOLOGY TEXT RESULTS PATIENT: VIBHA PRESTON LOCATION: [facility] 303- : [birth year] UNIT #: [id number] AGE: [address]: Wilber Shaver MD SEX: F ORDER DR: [id number] [place] [id number] [facility]. [place], [place] [address] [id number] I MR#: [id number] Acc #: [id number] NAME: VIBHA PRESTON. : 1955 SEX: F STUDY DATE/TIME: 07/18/2016 8:37 UNIT: [address] ROOM: [facility] STUDY DESCRIPTION: CT Head W Contrast Attending Physician: Wilber Shaver M.D. Ordering Physician: Alejandro Chang M.D. Primary Care Physician: Cookie Chao M.D. MEDICAL IMAGING REPORT This report is preliminary unless electronic signature is present EXAM Head CT with contrast HISTORY Lung mass. Evaluate for brain metastasis suspected. TECHNIQUE Axial images were obtained with intravenous contrast. 100 mL of Isovue was used. This CT exam was performed with one or more of the following radiation dose reduction techniques: automatic exposure control, adjustment of mA and/or kV according to patient size, and iterative reconstruction. FINDINGS There is a 1.0 cm ring enhancing mass in the left frontal cortex with surrounding vasogenic edema consistent with metastatic disease. There is also a smaller 5.0 mm enhancing mass in the left insular area posteriorly with mild edema, also consistent with metastasis. No masses are seen in the posterior fossa. No bony lesions are seen. IMPRESSION 2 enhancing masses are seen in the left cerebral hemisphere with surrounding vasogenic edema, 1 measuring about 1.0 cm and the other about 5.0 mm. Both are strongly suspicious for metastatic disease. Dictated by... Kaden Gaytan M.D. THIS IS AN ELECTRONICALLY VERIFIED REPORT Kaden Gaytan M.D. at 07/19/2016 1:05 PM RLNava/bertha [facility] A Service of [facility] RADIOLOGY TEXT RESULTS PATIENT: VIBHA PRESTON LOCATION: [facility] 303-01 : [birth year] UNIT #: [id number] AGE: [address]: Wilber Shaver MD SEX: F ORDER DR: TD: 07/18/2016 10:32 JOB #: [id number] MEDICAL IMAGING REPORT Page 1 of 1 COPY
--- NOTE | ~2016-07-15 | OR ---
Unit #: [id number] #: [id number] Patient: VIBHA PRESTON [id number] [address] [place], [place] [address] [id number] I MR#: [id number] NAME: VIBHA PRESTON ROOM: 303 Date of Procedure: 07/19/2016 Admission Date: 07/16/2016 Surgeon: Kingston Montiel M.D. : 1955 Attending Physician: Wilber Shaver M.D. Primary Care Physician: Cookie Chao M.D. OPERATIVE REPORT PROCEDURE PERFORMED Fiberoptic bronchoscopy. INDICATIONS FOR PROCEDURE A 60-year-old white female with right upper lobe mass, rule out obstruction. PREOPERATIVE DIAGNOSIS Lung cancer, right upper lobe. POSTOPERATIVE DIAGNOSIS Obstructing mass occluding the right upper lobe orifice and extending into right mainstem occluding right mainstem by approximately 50%. DESCRIPTION OF PROCEDURE Procedure was done under MAC. The patient remained on supplemental oxygen. O2 saturations remained greater than 90%. The fiberoptic bronchoscope was introduced through the oral cavity via the bite block and advanced down the level of vocal cords. Vocal cords moved normally to phonation and breathing. Vocal cords were anesthetized with 1% lidocaine. The bronchoscope was passed through the vocal cords into the trachea. Trachea appeared normal. Main samantha was sharp. There was obstructing mass to the right upper lobe, which extended out into the right mainstem occluding the distal right mainstem and proximal bronchus intermedius by approximately 50%. The bronchus intermedius nor right lower lobe or middle lobe were visualized due to the size of tumor or obstruction to the airway. The bronchoscope was withdrawn to the main samantha and advanced down the left mainstem, which appeared normal. The left lower lobe was normal and the right upper lobe was normal without endobronchial lesions or mucosal abnormalities. The bronchoscope was withdrawn. The patient tolerated the procedure well. No biopsies were taken as she already had a diagnosis from C-directed fine needle and core biopsies. ADDENDUM The patient has a history of mitral valve replacement. She received ampicillin 2 g IV prior to bronchoscopy for endocarditis prophylaxis. Dictated by... Kingston Montiel M.D. Unit #: [id number] #: [id number] Patient: VIBHA PRESTON YVROSE/evangelistl TD: 07/20/2016 00:38 JOB #: [id number] CC: Reynaldo Dailey M.D. OPERATIVE REPORT Page 1 of 1 X Kingston Montiel MD PROCEDURE OPERATIVE NOTE
--- NOTE | ~2016-07-15 | CO ---
Unit #: [id number] #: [id number] Patient: LATOYA PRESTON [id number] [address] [address] [id number] I MR#: [id number] NAME: LATOYA PRESTON. ROOM: 303 Age: 60 Sex: F Admission Date: 07/16/2016 : 1955 Attending Physician: Wilber Shaver M.D. Primary Care Physician: Cookie Chao M.D. CONSULTATION REPORT REQUESTING PHYSICIAN Dr. Shaver. REASON FOR CONSULTATION Right upper lobe lung mass. HISTORY OF PRESENT ILLNESS Ms. Latoya Preston is 60 years old with a history of mitral valve replacement and hypertension, who was admitted to the emergency room with right shoulder pain. CT angio of the chest done July 16, 2016 with a very large mass in the right upper lobe abutting the mediastinum, extending in the right hilum, overall measuring 11.9 to 9.8 cm with mass effect and narrowing of the right mainstem bronchus. There was a mildly prominent right subcarinal node measuring 2.4 to 1.5 cm. There was no involvement of bone. Ms. Preston tells me she has had no changes in appetite or weight but has been feeling fatigued. She was hospitalized June 03 to [facility] for her community-acquired pneumonia, treated with antibiotics while being hospitalized for a week. She has an occasional cough, no hemoptysis, no pain radiating down the arm. PAST MEDICAL HISTORY 1. 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 2. Hypertension. PAST SURGICAL HISTORY 1. Cholecystectomy. 2. Total abdominal hysterectomy and bilateral salpingo-oophorectomy. ALLERGIES She has no known medication allergies. HOME MEDICATIONS 1. Coumadin. 2. Lopressor. 3. Xanax. She monitors her pro time at home. FAMILY HISTORY Notable for metastatic lung cancer in brother. SOCIAL HISTORY She quit smoking eight years ago, smoking about half pack a day, Unit #: [id number] #: [id number] Patient: LATOYA PRESTON occasionally smokes a cigarette. She is single, . Lives with her brother. She has an adopted child, 4 years old, whom she is the primary caregiver. REVIEW OF SYSTEMS A 14-point review of systems taken. CONSTITUTIONAL: As discussed. EYES: Negative. EARS, NOSE, MOUTH, THROAT: Negative. CARDIOVASCULAR: Negative. RESPIRATORY: Chronic shortness of breathing without any recent change. GASTROINTESTINAL: Negative. GENITOURINARY: Negative. NEUROLOGIC: Negative. ALLERGY: Negative. LYMPHATIC: Negative. SKIN: Negative. ENDOCRINE: Blood sugars have been high during her [facility] stay, although she is not a known diabetic. PHYSICAL EXAMINATION GENERAL: On examination, she is a pleasant middle-aged woman. Performance is a 1. VITAL SIGNS: Temperature is 97.6, pulse 103, respiratory rate 19, blood pressure 149/102. Pain is 9 on a scale of 10. She weighs 140 pounds. HEENT: Pupils equal, reactive well to light. Mucous membranes are moist. NECK: No adenopathy, JVD, thyromegaly. CARDIOVASCULAR: First and second heart sounds heard and regular with no murmurs, gallops, or rubs. LUNGS: Chest expansion is symmetric. There is markedly decreased air entry on the right side. ABDOMEN: Soft, nontender. Bowel sounds active. EXTREMITIES: Warm with good with good pulses. No edema, cyanosis, clubbing. NEUROLOGIC: She is awake, alert, oriented x3 without any focal findings. SKIN: Negative. LYMPHATIC: Negative. DIAGNOSTIC STUDIES LABORATORY: White count 8.7, hemoglobin 13.2, platelet count 279,000. Pro time is 29.3, INR 2.7, PTT 45.7. Basic metabolic panel shows a BUN of 14, creatinine 0.8. LFTs are normal. BNP is 31. IMAGING: CT angio chest (1) : The findings were very large right upper lobe mass with a subcarinal lymph node. I gave copies of the images to patient and sister. ASSESSMENT AND PLAN Ms. Preston is 60 years old with a history of hypertension with a large right upper lobe lung mass with right shoulder pain consistent with a (2) tumor. She also has a mitral valve replacement and is chronically anticoagulated with warfarin which will need to be reversed transiently for biopsy. The best option would be to start on heparin weight based protocol as started. Discontinue the heparin and use fresh frozen plasma to reverse the pro time before resumption. I will ask interventional radiology for CT-guided biopsy and she will also require a bronchoscopy with evaluation and she is to be seen by Dr. Darwin Montiel. I have an extensive discussion of the situation with patient and sister. We Unit #: [id number] #: [id number] Patient: LATOYA PRESTON discussed that after biopsy confirmation of diagnosis, plans would be to stage with a PET CT scan as well as CT scan of the head to be done with contrast given that she has an artificial valve. Discussed about concurrent chemoradiation therapy followed by surgery if feasible. Thank you for allowing me to participate in her care. I will follow with you. Dictated by... Reynaldo Dailey/chuy TD: 07/16/2016 15:11 JOB #: [id number] CONSULTATION REPORT Page 1 of 1 X Alejandro Chang MD X CONSULTATION REPORT
[~2016-07-15 22:56] MED LIST: CLEOCIN150 MG PO; COUMADIN PO; KEFLEX PO; LIDODERM30 EA TOP; LODINE XL PO; TOPROL XL PO; TYLENOL/CODEINE1 TA1 PO
[2016-07-16 01:12] LABS: BASOPHIL# 0.1 X10e3 (0-0.3); BASOPHIL% 0.6 % (0-2.5); EOSINOPHIL# 0.4 X10e3 (0-0.7); EOSINOPHIL% 4.2 % (0.0-7.0); HEMATOCRIT 41.2 % (35.0-45.0); HEMOGLOBIN 13.2 gm/dL (12.0-16.0); LYMPHOCYTE# 2.8 X10e3 (1.0-3.5); LYMPHOCYTE% 31.9 % (17.0-45.0); MEAN CELL VOLUME 89.2 FL (83-96); MEAN CORPUSCULAR HEMOGLOBIN 28.7 PG (28-34); MEAN CORPUSCULAR HGB CONC 32.2 g/dL (30-36); MEAN PLATELET VOLUME 7.4 FL (6.5-11.5); MONOCYTE# 0.6 X10e3 (0-1.0); MONOCYTE% 6.4 % (3.0-12.0); NEUTROPHIL# 4.9 X10e3 (1.5-7.1); NEUTROPHIL% 56.9 % (40-75); PLATELET COUNT 279 X10e3 (140-420); RED BLOOD COUNT 4.62 X10e (3.90-5.30); RED CELL DISTRIBUTION WIDTH 15.5 % (11.0-15.5); WHITE BLOOD COUNT 8.7 X10e3 (4.0-10.5)
[2016-07-16 01:13] LABS: DIFF IND NO
[2016-07-16 01:24] LABS: INR 2.7; PARTIAL THROMBOPLASTIN TIME 45.7 SECONDS (23.5-31.3); PROTHROMBIN TIME (PATIENT) 29.3 SECONDS (9.6-11.5)
[2016-07-16 01:40] LABS: ALBUMIN SERUM 3.5 g/dL (3.5-5.0); BILIRUBIN, DIRECT 0.1 mg/dL (0.0-0.2); BILIRUBIN,INDIRECT 0.8 mg/dL (0.0-0.9); BILIRUBIN,TOTAL 0.9 mg/dL (0.2-2.0); BUN/CREATININE RATIO 17.5; CALCIUM SERUM 9.1 mg/dL (8.4-10.2); CREATININE SERUM 0.8 mg/dL (0.6-1.4); GLOM FILT RATE Estimated 81.3 mL/min (>60); MAGNESIUM 1.8 mg/dL (1.6-3.0)
[2016-07-16 05:36] LABS: INR 2.7
[2016-07-17 05:45] LABS: HEMATOCRIT 36.8 % (35.0-45.0); MEAN CORPUSCULAR HEMOGLOBIN 28.9 PG (28-34); MEAN CORPUSCULAR HGB CONC 32.5 g/dL (30-36); RED BLOOD COUNT 4.14 X10e (3.90-5.30); RED CELL DISTRIBUTION WIDTH 15.7 % (11.0-15.5); WHITE BLOOD COUNT 7.9 X10e3 (4.0-10.5)
[2016-07-17 06:28] LABS: INR 1.6; PARTIAL THROMBOPLASTIN TIME 36.8 SECONDS (23.5-31.3); PROTHROMBIN TIME (PATIENT) 17.3 SECONDS (9.6-11.5)
[2016-07-17 14:16] LABS: CALCIUM SERUM 8.1 mg/dL (8.4-10.2); CREATININE SERUM 0.8 mg/dL (0.6-1.4); GLOM FILT RATE Estimated 81.3 mL/min (>60); MAGNESIUM 1.8 mg/dL (1.6-3.0)
[2016-07-17 14:46] LABS: FREE THYROXIN (T4) 0.52 ng/dL (0.58-1.64); THYROID STIMULATING HORMONE 14.01 uIU/ml (0.34-5.60)
[2016-07-18 07:11] LABS: HEMATOCRIT 32.8 % (35.0-45.0); HEMOGLOBIN 10.6 gm/dL (12.0-16.0); MEAN CELL VOLUME 89.1 FL (83-96); MEAN CORPUSCULAR HEMOGLOBIN 28.7 PG (28-34); MEAN CORPUSCULAR HGB CONC 32.2 g/dL (30-36); MEAN PLATELET VOLUME 7.3 FL (6.5-11.5); RED BLOOD COUNT 3.68 X10e (3.90-5.30); RED CELL DISTRIBUTION WIDTH 15.2 % (11.0-15.5); WHITE BLOOD COUNT 5.9 X10e3 (4.0-10.5)
[2016-07-18 07:23] LABS: INR 1.3; PARTIAL THROMBOPLASTIN TIME 33.8 SECONDS (23.5-31.3); PROTHROMBIN TIME (PATIENT) 13.9 SECONDS (9.6-11.5)
[2016-07-18 07:41] LABS: BUN/CREATININE RATIO 16.66; CALCIUM SERUM 8.4 mg/dL (8.4-10.2); CREATININE SERUM 0.6 mg/dL (0.6-1.4); GLOM FILT RATE Estimated 100.5 mL/min (>60)
[2016-07-19 06:55] LABS: INR 1.2; PARTIAL THROMBOPLASTIN TIME 27.8 SECONDS (23.5-31.3); PROTHROMBIN TIME (PATIENT) 12.9 SECONDS (9.6-11.5)
[2016-07-20 05:39] LABS: HEMATOCRIT 32.5 % (35.0-45.0); HEMOGLOBIN 10.3 gm/dL (12.0-16.0); MEAN CELL VOLUME 90.2 FL (83-96); MEAN CORPUSCULAR HEMOGLOBIN 28.6 PG (28-34); MEAN CORPUSCULAR HGB CONC 31.7 g/dL (30-36); MEAN PLATELET VOLUME 7.8 FL (6.5-11.5); RED BLOOD COUNT 3.6 X10e (3.90-5.30); RED CELL DISTRIBUTION WIDTH 16.1 % (11.0-15.5); WHITE BLOOD COUNT 8.4 X10e3 (4.0-10.5)
[2016-07-20 05:46] LABS: INR 1.2; PROTHROMBIN TIME (PATIENT) 12.7 SECONDS (9.6-11.5)
[2016-07-20 06:07] LABS: CALCIUM SERUM 8.6 mg/dL (8.4-10.2); CREATININE SERUM 0.8 mg/dL (0.6-1.4); GLOM FILT RATE Estimated 81.3 mL/min (>60); MAGNESIUM 2.1 mg/dL (1.6-3.0); POTASSIUM 4.5 mmol/L (3.5-5.1)
[2016-07-20] MEDS ORDERED: LOVENOX SUBQ (16:40)
[2016-07-20] MEDS ORDERED: [UNRECOGNIZED DRUG - OTHER] (16:50)
[2016-08-06] MEDS ORDERED: SYMBICORT INH (16:35)
[2016-08-06] MEDS ORDERED: HYDRALAZINE HCL50 MG PO (16:51)
[2016-09-26] MEDS ORDERED: ALBUTEROL 0.5ML INH (05:33)
[2016-09-26] MEDS ORDERED: FOLIC ACID PO (09:21)
[2016-09-26] MEDS ORDERED: ZOFRAN PO (09:22)
[2016-09-26] MEDS ORDERED: BENADRYL25 M1 PO (09:23)
[2016-09-26] MEDS ORDERED: PERCOCET10 PO (16:33)
[2016-09-26] MEDS ORDERED: PREDNISONE10 M1 PO (16:34)
[2016-09-26] MEDS ORDERED: SYNTHROID0.05 MG PO (16:36)
[2016-09-26] MEDS ORDERED: METFORMIN HCL500 M3 PO (16:38)
[2016-09-26] MEDS ORDERED: TOPROL XL PO (16:49)
[2016-09-26] MEDS ORDERED: ALPRAZOLAM PO (18:12)
[2016-09-26] MEDS ORDERED: LASIX PO (21:54)
[2016-12-21] MEDS ORDERED: PREDNISONE2.5 MG PO (22:04)
[2016-12-21] MEDS ORDERED: ALBUTEROL20 ml INH (22:06)
[2016-12-21] MEDS ORDERED: AMLODIPINE BESYL5 MG PO (22:07)
[2016-12-21] MEDS ORDERED: SYNTHROID0.05 MG PO (22:08)
[2016-12-21] MEDS ORDERED: FERROUS GLUCON324 M1 PO (22:10)
[2016-12-21] MEDS ORDERED: FOLIC ACID1 MG PO (22:10)
[2016-12-21] MEDS ORDERED: FUROSEMIDE40 MG PO (22:11)
[2016-12-21] MEDS ORDERED: WARFARIN SODIUM3 M1 PO (22:11)
[2016-12-21] MEDS ORDERED: PROTONIX PO (22:12)
[2016-12-21] MEDS ORDERED: HYDRALAZINE HCL50 MG PO (22:12)
[2016-12-21] MEDS ORDERED: COMPAZINE5 M2 PO (22:13)
[2016-12-21] MEDS ORDERED: FLUOXETINE HCL20 M1 PO (22:14)
[2016-12-21] MEDS ORDERED: POLYETHYLENE G500 G1 PO (22:18)
[2016-12-21] MEDS ORDERED: BENADRYL ALLERG25 M1 PO (22:19)
[2016-12-21] MEDS ORDERED: PHENERGAN25 M1 PO (22:20)
[2016-12-21] MEDS ORDERED: OXYCODONE HCL15 MG PO (22:22)
[2016-12-21] MEDS ORDERED: FENTANYL1 EAC1 TOP (22:27)
[2016-12-24] MEDS ORDERED: PREDNISONE PO (10:52)
[2016-12-24] MEDS ORDERED: MAG-OX 400400 M1 PO (10:52)
[2016-12-24] MEDS ORDERED: SPIRIVA18 MCG INH (10:54)
[2016-12-24] MEDS ORDERED: LOPRESSOR PO (10:56)
[2016-12-24] MEDS ORDERED: LEVAQUIN750 MG PO (10:57)
[2016-12-24] MEDS ORDERED: KCL PO (10:58)
[2017-01-08] MEDS ORDERED: LASIX PO (11:18)
[2017-01-08] MEDS ORDERED: FOLIC ACID1 MG PO (11:18)
[2017-01-08] MEDS ORDERED: PROTONIX PO (11:18)
[2017-01-08] MEDS ORDERED: PATIENT'S PHARMACY (11:18)
[2017-01-08] MEDS ORDERED: PHENERGAN25 MG PO (11:19)
[2017-01-08] MEDS ORDERED: COUMADIN PO (11:19)
[2017-01-08] MEDS ORDERED: SYNTHROID0.05 MG PO (11:19)
[2017-01-08] MEDS ORDERED: LOPRESSOR PO (11:20)
[2017-01-08] MEDS ORDERED: HYDRALAZINE HCL50 MG PO (11:20)
[2017-01-08] MEDS ORDERED: MAG-OX 400400 M1 PO (11:21)
[2017-01-08] MEDS ORDERED: KCL PO (11:21)
[2017-01-08] MEDS ORDERED: ONDANSETRON ODT4 MG PO (11:21)
[2017-01-08] MEDS ORDERED: NORVASC PO (11:21)
[2017-01-08] MEDS ORDERED: PROZAC10 MG PO (11:22)
[2017-01-08] MEDS ORDERED: VALIUM10 M1 PO (11:22)
[2017-01-08] MEDS ORDERED: PREDNISONE (11:22)
[2017-01-08] MEDS ORDERED: SOTALOL AF80 M1 PO (11:22)
[2017-01-08] MEDS ORDERED: DURAGESIC1 EAC1 TOP (11:23)
[2017-01-08] MEDS ORDERED: BENADRYL25 M1 PO (11:23)
== END 2016-07-20 17:55 | disposition home health service (06) | DRG 180 ==
LOC: CED 22:56 → CEDOF 07-16 03:50 → C3A PCU 07-16 09:59
PROVIDERS: Family Medicine; Internal Medicine; Internal Medicine Hematology & Oncology; Nurse Practitioner; Obstetrics & Gynecology Reproductive Endocrinology; Student in an Organized Health Care Education/Training Program
PROC: B32TYZZ Computerized Tomography (CT Scan) of Left Pulmonary Artery using Other Contrast (ICD-10-PCS; 2016-07-16)
PROC: B32SYZZ Computerized Tomography (CT Scan) of Right Pulmonary Artery using Other Contrast (ICD-10-PCS; 2016-07-16)
PROC: 0BBK3ZX Excision of Right Lung, Percutaneous Approach, Diagnostic (ICD-10-PCS; 2016-07-18)
PROC: 0BJ08ZZ Inspection of Tracheobronchial Tree, Via Natural or Artificial Opening Endoscopic (ICD-10-PCS; principal; 2016-07-19 10:00)
DX: C34.11 Malignant neoplasm of upper lobe, right bronchus or lung (principal); J96.00 Acute respiratory failure, unspecified whether with hypoxia or hypercapnia; I48.0 Paroxysmal atrial fibrillation; E66.01 Morbid (severe) obesity due to excess calories; C79.31 Secondary malignant neoplasm of brain; J44.1 Chronic obstructive pulmonary disease with (acute) exacerbation; I10 Essential (primary) hypertension; Z95.2 Presence of prosthetic heart valve; Z79.01 Long term (current) use of anticoagulants; Z90.49 Acquired absence of other specified parts of digestive tract; Z90.710 Acquired absence of both cervix and uterus; Z87.891 Personal history of nicotine dependence; Z83.3 Family history of diabetes mellitus; I35.1 Nonrheumatic aortic (valve) insufficiency; I25.10 Atherosclerotic heart disease of native coronary artery without angina pectoris; E11.9 Type 2 diabetes mellitus without complications; E78.5 Hyperlipidemia, unspecified; I45.10 Unspecified right bundle-branch block; I49.3 Ventricular premature depolarization; R94.31 Abnormal electrocardiogram [ECG] [EKG]; Z68.29 Body mass index [BMI] 29.0-29.9, adult
CPT/HCPCS: 36415; 70460; 71010; 71020; 71275; 73030; 77012; 80048; 80076; 82947; 83036; 83735; 83880; 84439; 84443; 85025; 85027; 85610; 85730; 86850; 86900; 86901; 88305; 88341; 88342; 93005; 94640; 94664; 94760; 96360; 97162; 99285; G8978-GP; G8979-GP; G8980-GP; J0171; J0290; J0330; J1644; J1650; J1815; J2250; J2270; J2405; J2920; J3010; Q9967

== ENCOUNTER → 2016-08-06 | Outpatient (CLI) | payer OTHER ==
[~2016-08-06] MED LIST changes: +ALBUTEROL 0.5ML INH; +ALBUTEROL2.5 MG/3 M INH; +ALBUTEROL20 ml INH; +ALPRAZOLAM PO; +AMLODIPINE BESYL5 MG PO; +BENADRYL ALLERG25 M1 PO; +BENADRYL25 M1 PO; +BROVANA15 MCG/2 M INH; +BUDESONIDE0.5 MG/2 M INH; +COMPAZINE5 M1 PO; +COMPAZINE5 M2 PO; +DIPHENHYDRAMINE25 M1 PO; +DUONEB INH; +DURAGESIC1 EAC1 TOP; +FENTANYL1 EAC1 TOP; +FERROUS GLUCON324 M1 PO; +FLUOXETINE HCL20 M1 PO; +FOLIC ACID PO; +FOLIC ACID1 MG PO; +FUROSEMIDE40 MG PO; +HYDRALAZINE HCL50 MG PO; +KCL PO; +LASIX PO; +LASIX20 MG PO; +LEVAQUIN750 MG PO; +LEVOTHYROXINE50 MCG PO; +LOPRESSOR PO; +LOVENOX SUBQ; +MAG-OX 400400 M1 PO; +METFORMIN HCL500 M3 PO; +MIRALAX17 GM PO; +NORVASC PO; +ONDANSETRON ODT4 MG PO; +OXYCODONE HCL15 MG PO; +PANTOPRAZOLE SO40 MG PO; +PATIENT'S PHARMACY; +PERCOCET10 PO; +PHENERGAN25 M1 PO; +PHENERGAN25 MG PO; +POLYETHYLENE G500 G1 PO; +PREDNISONE; +PREDNISONE PO; +PREDNISONE10 M1 PO; +PREDNISONE2.5 MG PO; +PREDNISONE5 M1 PO; +PROTONIX PO; +PROZAC10 MG PO; +SOTALOL AF80 M1 PO; +SPIRIVA18 MCG INH; +SYMBICORT INH; +SYNTHROID0.05 MG PO; +TYL325 PO; +VALIUM10 M1 PO; +WARFARIN SODIUM3 M1 PO; +XANAX1 MG PO; +ZOFRAN PO; +[UNRECOGNIZED DRUG - OTHER]
--- NOTE | ~2016-08-06 | XA91 ---
[facility] A Service of [facility] & [facility] RADIOLOGY TEXT RESULTS PATIENT: VIBHA PRESTON LOCATION: [facility] : 59 UNIT #: [id number] AGE: [address]: Alejandro Chang MD SEX: F ORDER DR: [id number] [facility] [address] [facility]. [place], [place] [address] [id number] O MR#: [id number] Acc #: [id number] NAME: VIBHA PRESTON. : 1955 SEX: F STUDY DATE/TIME: 08/06/2016 11:21 UNIT: [facility] ROOM: STUDY DESCRIPTION: XA CVC Tunneled W Port Attending Physician: Alejandro Chang M.D. Ordering Physician: Alejandro Chang M.D. Primary Care Physician: Cookie Chao M.D. MEDICAL IMAGING REPORT This report is preliminary unless electronic signature is present EXAM MediPort insertion under ultrasound and fluoroscopy. HISTORY Lung cancer. Ms. Preston is 61-year-old female recently diagnosed lung cancer who and is referred for MediPort placement. PROCEDURE The procedure, attendant risks, and options were discussed with the patient. She understands, wishes to proceed and gives consent. Due to the lack of venous access, a PICC line was placed under ultrasound and fluoroscopy immediately prior to this procedure. Please see that dictation. The patient was placed in the supine position in the angio suite. The chest and right neck was prepped with chlorhexidine solution. This area was then prepped. IV conscious sedation was administered consisting of IV Versed and fentanyl. The patient was monitored by the IR nurse during the entire procedure. Sedation time was 1 hour. Full sterile barrier technique, including caps, gowns, masks, gloves, and shoe covers were utilized. Initially, the right internal jugular vein was addressed by ultrasound. It is patent and a micropuncture was performed under local anesthesia with lidocaine. An 8-Czech introducer sheath was subsequently placed. At this point, the right anterior chest wall was anesthetized with 1% lidocaine with epinephrine. A 3-cm horizontal incision was made parallel to the clavicle and a pocket bluntly dissected and subsequently flushed. The port was sewn to the deep fascia utilizing 3-0 Vicryl suture, a tunneler was passed through the right IJ and the catheter was trimmed to the appropriate length under fluoro. This was deployed through the peel-away sheath and the sheath removed. The port was then accessed, aspirated, and injected with heparin. It behaved normally. The right IJ site was closed with a single interrupted 3-0 Vicryl suture. The deep fascia at the pocket site was closed with 3-0 interrupted Vicryl suture. STS. [facility] A Service of [facility] RADIOLOGY TEXT RESULTS PATIENT: VIBHA PRESTON LOCATION: [facility] : 59 UNIT #: [id number] AGE: [address]: Alejandro Chang MD SEX: F ORDER DR: The dermis was closed with a 4-0 Monocryl continuous suture. Dermabond was placed over each site. Spot radiograph was obtained documenting placement. Single spot radiograph and permanent ultrasound image were recorded for documentation. Total fluoroscopy time was 0.6 minutes. Total exposure 5 mGy air kerma standard. Dictated by... Vishal Ayala M.D. THIS IS AN ELECTRONICALLY VERIFIED REPORT Vishal Ayala M.D. at 08/06/2016 4:52 PM CONNOR/kai TD: 08/06/2016 16:18 JOB #: [id number] MEDICAL IMAGING REPORT Page 1 of 1 COPY
--- NOTE | ~2016-08-06 | XA166 ---
[facility] A Service of [facility] & [facility] RADIOLOGY TEXT RESULTS PATIENT: VIBHA PRESTON LOCATION: CIVR : 59 UNIT #: [id number] AGE: [address]: Alejandro Chang MD SEX: F ORDER DR: [id number] [facility] [address] [place], [place] [address] [id number] O MR#: [id number] Acc #: [id number] NAME: VIBHA PRESTON. : 1955 SEX: F STUDY DATE/TIME: 08/06/2016 10:35 UNIT: [facility] ROOM: STUDY DESCRIPTION: XA PICC Line Placement WO Port Attending Physician: Alejandro Chang M.D. Ordering Physician: Vishal Ayala M.D. Primary Care Physician: Cookie Chao M.D. MEDICAL IMAGING REPORT This report is preliminary unless electronic signature is present EXAM Right-sided PICC line placement under ultrasound and fluoroscopy. HISTORY No venous access, lung cancer. PRE-PROCEDURE The procedure was explained to the patient and/or patient outbound telemarketing representative including risks, benefits, potential complications and potential for alternative forms of treatment. Informed consent was obtained, and prior to initiating the procedure a formal timeout procedure was performed. PROCEDURE Using full standard sterile barrier technique, including caps, gowns, gloves, masks, as well as sterile skin preparation and standard sterile draping, the right arm was prepped and draped in the usual fashion, and real-time sterile ultrasound guidance was used to localize a right basilic vein and to confirm vessel patency. A hard copy ultrasound image was recorded. After local anesthesia with 1% Xylocaine, the vein was punctured using real-time sterile ultrasound guidance, and an 0.018 guidewire was advanced into the superior vena cava, using fluoroscopic guidance. A 4-Sinhala single-lumen PICC was then measured to 35 cm and deployed with the tip positioned in the superior vena cava. The position of the line was documented with a radiographic image. The line was secured in place with an adhesive dressing and an antibiotic patch was applied. Total fluoro time was 0.1 minutes. Total exposure 1 mGy air kerma. IMPRESSION Successful placement of a 4-Sinhala single lumen 35 cm PowerPICC via the arm under ultrasound and fluoroscopic guidance. The tip of the PICC is in good position in the superior vena cava. [facility]. [facility] A Service of [facility] RADIOLOGY TEXT RESULTS PATIENT: VIBHA PRESTON LOCATION: [facility] #: [id number] : 59 UNIT #: [id number] AGE: [address]: Alejandro Chang MD SEX: F ORDER DR: Dictated by... Vishal Ayala M.D. THIS IS AN ELECTRONICALLY VERIFIED REPORT Vishal Ayala M.D. at 08/06/2016 4:52 PM CONNOR/kai TD: 08/06/2016 15:13 JOB #: [id number] MEDICAL IMAGING REPORT Page 1 of 1 COPY
[2016-08-06 09:14] LABS: HEMATOCRIT 41.3 % (35.0-45.0); HEMOGLOBIN 13.2 gm/dL (12.0-16.0); MEAN CELL VOLUME 90.4 FL (83-96); MEAN CORPUSCULAR HEMOGLOBIN 28.9 PG (28-34); MEAN PLATELET VOLUME 7.9 FL (6.5-11.5); RED BLOOD COUNT 4.57 X10e (3.90-5.30); RED CELL DISTRIBUTION WIDTH 16.2 % (11.0-15.5); WHITE BLOOD COUNT 8.8 X10e3 (4.0-10.5)
[2016-08-06 09:25] LABS: INR 0.9; PARTIAL THROMBOPLASTIN TIME 24.6 SECONDS (23.5-31.3); PROTHROMBIN TIME (PATIENT) 9.9 SECONDS (9.6-11.5)
== END | disposition home or self-care (01) ==
LOC: CIVR 08:22
PROVIDERS: Internal Medicine Hematology & Oncology
DX: Z45.2 Encounter for adjustment and management of vascular access device (principal); C34.11 Malignant neoplasm of upper lobe, right bronchus or lung; C79.31 Secondary malignant neoplasm of brain; I05.8 Other rheumatic mitral valve diseases; R04.2 Hemoptysis
CPT/HCPCS: 36415; 76937; 77001; 85027; 85610; 85730; C1751; C1788; C1894; J0690; J1642; J2250; J3010

== ENCOUNTER → 2016-09-26 | Outpatient (CLI) | payer OTHER | END | disposition home or self-care (01) | LOC: CSSDAY 08:00 | DX: D64.81 Anemia due to antineoplastic chemotherapy (principal); C34.11 Malignant neoplasm of upper lobe, right bronchus or lung | CPT/HCPCS: 36430; 86850; 86900; 86901; 86923; J1642; J1940; P9016 ==

== ENCOUNTER → 2016-10-03 | Outpatient (CLI) | payer OTHER | END | disposition home or self-care (01) | LOC: CSSDAY 10:42 | DX: D64.9 Anemia, unspecified (principal); R06.02 Shortness of breath | CPT/HCPCS: 86850; 86900; 86901; 86923 ==

== ENCOUNTER → 2016-10-04 | Outpatient (CLI) | payer OTHER | END | disposition home or self-care (01) | LOC: CSSDAY 07:15 | DX: D64.9 Anemia, unspecified (principal); R06.02 Shortness of breath | CPT/HCPCS: 36430; 94640; J1200; J1642; J1940; P9016 ==

== ENCOUNTER → 2016-10-17 | Outpatient (CLI) | payer OTHER ==
--- NOTE | ~2016-10-17 | CT55 ---
[facility] A Service of [facility] & [facility] RADIOLOGY TEXT RESULTS PATIENT: VIBHA PRESTON LOCATION: [facility] : 59 UNIT #: [id number] AGE: [address]: Alejandro Chang MD SEX: F ORDER DR: [id number] [facility] [address] [place], [place] [address] [id number] O MR#: [id number] Acc #: [id number] NAME: VIBHA PRESTON. : 1955 SEX: F STUDY DATE/TIME: 10/17/2016 9:58 UNIT: [facility] ROOM: STUDY DESCRIPTION: CT Chest W Con Attending Physician: Alejandro Chang M.D. Referring Physician: Alejandro Chang M.D. Ordering Physician: Alejandro Chang M.D. Primary Care Physician: Cookie Chao M.D. MEDICAL IMAGING REPORT This report is preliminary unless electronic signature is present EXAM Chest CT, 10/17. HISTORY Right-side lung cancer. Observation of malignant neoplasm. Intermittent mid chest pain and cough for one month. Chemotherapy in September 2016. TECHNIQUE Axial images were obtained through the chest following IV contrast administration. Multiplanar reformats were obtained. This CT exam was performed with one or more of the following radiation dose reduction techniques: automatic exposure control, adjustment of mA and/or kV according to patient size, and iterative reconstruction. COMPARISON Comparison made with PET/CT from 07/25/2016. FINDINGS There is a large irregular right upper lobe pulmonary mass with narrowing of the right upper lobe bronchus. Patency of the bronchus is much improved since the prior PET/CT. Aeration of the right upper lobe is generally improved, as well. On lung windows, the bulk of the mass measures about 4.9 x 6.6 x 5.4 cm. Tumor does extend along the minor fissure. Parenchyma density in the remainder of the right upper lobe could reflect tumor spread or some postobstructive pneumonia. Please note that the measurements above do include extension of the mass into the mediastinum in the right paratracheal space. There is some debris in the proximal right lower lobe bronchus which is probably secretions. There is some thickening around the right side of the trachea above the level of the tumor which is worrisome for tumor involvement. There is a small upper mediastinal paratracheal lymph node measuring only about 5 mm short [facility]. [facility] A Service of [facility] & [facility] RADIOLOGY TEXT RESULTS PATIENT: VIBHA PRESTON LOCATION: [facility] : 59 UNIT #: [id number] AGE: [address]: Alejandro Chang MD SEX: F ORDER DR: vicky. Attention on followup is recommended. A similar-appearing superior mediastinal node is noted more cephalad. It measures about 6 mm in size. These were probably present on the prior PET/CT. They are better seen today. There is elevation of the right hemidiaphragm. The left lung is clear except for granulomatous calcification. No suspicious osseous lesions. IMPRESSION 1. The primary right upper lobe mass does appear much improved. On the prior PET/CT, it was difficult to separate from consolidated lung. See measurements above. 2. The right upper lobe bronchus is now patent although it is irregular and narrowed by tumor. Alveolar opacities in the right upper lobe may reflect postobstructive pneumonia or residual tumor. Please note that tumor does extend along the minor fissure. 3. There is thickening of the right half of the trachea which could reflect tumor involvement. Trachea is widely patent, however. 4. Small superior mediastinal lymph nodes are relatively stable from the prior PET/CT. No large bulky adenopathy is seen. 5. For a description of findings in the abdomen, please see the abdomen CT report dictated separately. Dictated by... Kaden Oropeza Jr., M.D. THIS IS AN ELECTRONICALLY VERIFIED REPORT Kaden Oropeza Jr., M.D. at 10/18/2016 4:47 PM DANNIELLE/kai TD: 10/18/2016 09:48 JOB #: [id number] MEDICAL IMAGING REPORT Page 1 of 1 COPY
--- NOTE | ~2016-10-17 | CT5 ---
[facility] A Service of [facility] RADIOLOGY TEXT RESULTS PATIENT: VIBHA PRESTON LOCATION: [facility] : 59 UNIT #: [id number] AGE: [address]: Alejandro Chang MD SEX: F ORDER DR: [id number] [facility] [address] [place], [place] [address] [id number] O MR#: [id number] Acc #: [id number] NAME: VIBHA PRESTON. : 1955 SEX: F STUDY DATE/TIME: 10/17/2016 9:58 UNIT: [facility] ROOM: STUDY DESCRIPTION: CT Abdomen W Cont Attending Physician: Alejandro Chang M.D. Referring Physician: Alejandro Chang M.D. Ordering Physician: Alejandro Chang M.D. Primary Care Physician: Cookie Chao M.D. MEDICAL IMAGING REPORT This report is preliminary unless electronic signature is present EXAM CT abdomen, 10/17 HISTORY Right side lung cancer. Observation malignant neoplasm. Chemotherapy September 2016. TECHNIQUE Axial images were obtained through the abdomen following oral and IV contrast administration. Multiplanar reformats were obtained. This CT exam was performed with one or more of the following radiation dose reduction techniques: automatic exposure control, adjustment of mA and/or kV according to patient size, and iterative reconstruction. COMPARISON PET/CT from 07/25/2016 FINDINGS For a description of findings in the lung bases, see the chest CT report dictated separately. Gallbladder is surgically absent. Small bilateral renal cysts are present. There is mild fatty infiltration of the liver. There is mild splenomegaly with a craniocaudal dtfw-jm-xhuq length of 13.0 cm. Solid organs are otherwise unremarkable. The GI tract is normal. No adenopathy or free fluid is seen. There is diffuse atherosclerotic disease. There is a 9.0 mm noncalcified nodule in the left abdominal wall near the level of the umbilicus. This is nonspecific but may simply reflect prior site of medication injection. IMPRESSION [facility] A Service of [facility] RADIOLOGY TEXT RESULTS PATIENT: VIBHA PRESTON LOCATION: [facility] : 59 UNIT #: [id number] AGE: [address]: Alejandro Chang MD SEX: F ORDER DR: 1. No evidence of metastatic disease in the abdomen. 2. Cholecystectomy. 3. Hepatic steatosis. 4. Atherosclerotic disease. 5. 9.0 mm soft tissue nodule in the ventral abdominal wall to the left of midline near the umbilicus level. This is probably a benign finding and could be the result of prior medication injection. Dictated by... Kaden Oropeza Jr., M.D. THIS IS AN ELECTRONICALLY VERIFIED REPORT Kaden Oropeza Jr., M.D. at 10/18/2016 4:47 PM Francheska TD: 10/18/2016 11:07 JOB #: [id number] MEDICAL IMAGING REPORT Page 1 of 1 COPY
[2016-10-17 15:21] LABS: POC - CREATININE 0.94 mg/dL (0.44-1.03); POC - GFR >60.0 mL/min (>60)
== END | disposition home or self-care (01) ==
LOC: CCAT 08:25
PROVIDERS: Internal Medicine Hematology & Oncology
DX: C79.31 Secondary malignant neoplasm of brain (principal); C34.11 Malignant neoplasm of upper lobe, right bronchus or lung; I05.8 Other rheumatic mitral valve diseases; I70.90 Unspecified atherosclerosis; Z90.49 Acquired absence of other specified parts of digestive tract
CPT/HCPCS: 71260; 74160; 82565; J1642; Q9967

== ENCOUNTER 2016-11-08 12:22 | Inpatient (IN) | payer OTHER ==
[~2016-11-08] VITALS: Ht 162.6 cm; Wt 59.0 kg
--- NOTE | ~2016-11-08 | CO ---
Unit #: [id number] #: [id number] Patient: LATOYA PRESTON [id number] [address] [place], [place] [address] [id number] I MR#: [id number] NAME: LATOYA PRESTON ROOM: 333 Age: 61 Sex: F Admission Date: 11/08/2016 : 1955 Attending Physician: Alejandro Chang M.D. Primary Care Physician: Cookie Chao M.D. Consultation Date: 11/12/2016 CONSULTATION REPORT REFERRING PHYSICIAN Dr. Angeles. REASON FOR CONSULTATION Positive blood cultures, indwelling right chest wall port. HISTORY OF PRESENT ILLNESS The patient is a 61-year-old female with a history of non-small cell lung cancer as I had obtained chemotherapy and radiation report. She has externally indwelling, right chest wall Wyknvr-U-Ueyk with central venous catheter. She was admitted directly from our oncologist office with possible GI bleed as well as a history of fevers. She reports they have been starting from the last couple of days prior to being seen in the doctor's office. Upon admission, she was evaluated with chest x-ray showing likely pneumonia of the right chest as well as blood cultures being taken. Blood cultures resulted in positive for Enterococcus as well as MRSA. She is currently on antibiotic of Zosyn and vancomycin, and underwent GI workup. She currently reports tolerating her diet. She reports no new fevers or chills at this time. She reports having some issues with breathing related to chronic problem from her lung cancer. She denies any other current issues or concerns at this time. We were asked to see her for possible port removal and new long-term IV access as she also had significant problems with getting IVs. PAST MEDICAL HISTORY 1. Hypertension. 2. Hyperglycemia. 3. Diabetes. 4. Non-small cell lung cancer. PAST SURGICAL HISTORY 1. Cholecystectomy. 2. Total abdominal hysterectomy. 3. Bilateral salpingo-oophorectomy. 4. Placement of right chest wall Rqykpl-B-Auly. ALLERGIES None. MEDICATIONS Protonix, MiraLax, Synthroid 0.05 mg daily, prednisone 5 mg daily, Lasix 20 mg daily, Xanax 1 mg three times daily, metoprolol 75 mg daily. FAMILY HISTORY Unit #: [id number] #: [id number] Patient: LATOYA PRESTON Positive for diabetes and congestive heart failure. SOCIAL HISTORY Past tobacco user, quit eight years ago. Denies alcohol use. REVIEW OF SYSTEMS Per the HPI. The remainder of the 14-point review of system is negative per question. PHYSICAL EXAMINATION VITAL SIGNS: Temperature is 97.5, blood pressure is 159/72, pulse is 62, respirations 18. GENERAL APPEARANCE: The patient is a well-groomed, well-developed individual appearing her stated age. No apparent distress. Answering questions appropriately. HEENT: Pupils are equal and reactive to light and accommodation. Extraocular movements are intact. Mucous membranes are moist. No intraoral or intramucosal lesion or infections. NECK: Supple. No JVD. No carotid bruits bilaterally. Trachea is midline. Thyroid is midline without enlargement. HEART: S1 and S2. Regular rate and rhythm. No murmurs. LUNGS: Clear to auscultation in the left lung field. Slight crackles in the right lung field. A right chest wall Jydsqn-J-Nyjc site in place without significant erythema or edema. ABDOMEN: Soft, nontender, and nondistended. Positive bowel sounds throughout. No abdominal masses or hernias were noted. VASCULAR: Positive radial and femoral pulses bilateral. Pedal pulses are not palpable. SKIN: No open wounds, sores, ulcers or dermatologic changes noted bilateral throughout. MUSCULOSKELETAL: No soft tissue masses or bony deformities. No limb length or limb circumference abnormalities bilaterally. LYMPHATICS: No lymphadenopathy of the cervical or femoral chain. PSYCHIATRIC: Alert and oriented x3. NEUROLOGIC: Cranial nerves II through XII are intact, 5/5 strength in all extremities. Normal sensation in all extremities. DIAGNOSTIC STUDIES LABORATORY RESULTS: Blood cultures from 11/09/2016 reviewed by me showing positive Enterococcus and MRSA. INR is 1.1. IMPRESSION AND PLAN Ms. Latoya Preston with poor IV access with positive blood cultures and indwelling right chest wall Bjdymk-K-Brst. Ms. Preston and her family were told based on our evaluation that she has recommended removal of the port and placement of a temporary central venous catheter. We described in detail the planned procedure including the associated risks, and benefits, and they wished to proceed. We will plan for surgery on 11/13/2016. She will be made n.p.o. after midnight. The remainder of her questions were answered to her satisfaction. Thank you for having us to see the Ms. Preston, if you have any questions, do not hesitate to contact me. Dictated by... Denisha Arriaga M.D. Unit #: [id number] #: [id number] Patient: LATOYA PRESTON WENDY/shyla TD: 11/14/2016 02:20 JOB #: [id number] CONSULTATION REPORT Page 1 of 1 X Denisha Arriaga MD X CONSULTATION REPORT
--- NOTE | ~2016-11-08 | EKG ---
PATIENT: VIBHA PRESTON UNIT #: [id number] Ventricular Rate: 114 BPM Atrial Rate: 114 BPM P-R Interval: 192 ms QRS Duration: 134 ms Q-T Interval: 368 ms QTC Calculation(Bezet): 507 ms P [place]: 262 degrees Calculated R [place]: 105 degrees Calculated T [place]: -41 degrees Diagnosis Line: Unusual P axis, possible ectopic atrial Diagnosis Line: tachycardia Diagnosis Line: Right bundle branch block Diagnosis Line: T wave abnormality, consider inferolateral Diagnosis Line: ischemia Diagnosis Line: Abnormal ECG Diagnosis Line: When compared with ECG of 16-JUL-2016 07:35, Diagnosis Line: Ectopic atrial rhythm has replaced Sinus rhythm Diagnosis Line: T wave inversion more evident in Anterolateral Diagnosis Line: leads Diagnosis Line: Confirmed by NINA GAMBLE MD ([id number]) on 11/14/2016 Diagnosis Line: 7:32:13 AM INTERPRETING MD: MAVIS EATON
--- NOTE | ~2016-11-08 | OR ---
Unit #: [id number] #: [id number] Patient: VIBHA PRESTON [id number] [address] [address] [id number] I MR#: [id number] NAME: VIBHA PRESTON ROOM: [facility] Date of Procedure: 11/08/2016 Admission Date: 11/09/2016 Surgeon: Eric Ordoñez M.D. : 1955 Attending Physician: Alejandro Chang M.D. Primary Care Physician: Cookie Chao M.D. OPERATIVE REPORT PROCEDURE PERFORMED Esophagogastroduodenoscopy to descending duodenum. INDICATIONS FOR PROCEDURE GI bleeding, anemia of acute blood loss. MEDICATIONS Monitored anesthesia. POSTOPERATIVE FINDINGS 1. Multiple small ulcer in the gastric antral area along with severe gastritis. 2. Normal duodenum and distal duodenum. 3. Small ulcer at GE junction consistent with reflux esophagitis. PLAN Aggressive PPI therapy. Check for H Pylori. DESCRIPTION OF PROCEDURE The patient was explained of the procedure, risks, and benefits along with the risks and benefits of anesthesia. She was brought to the endoscopy room. Propofol anesthesia was given. Bite block was placed. The scope was passed down the mouth into esophagus, stomach, duodenum, and distal duodenum. Findings as described. No biopsies taken as the patient had been on Coumadin. Gently, the scope was pulled out. She tolerated it well. No major complications were seen. Dictated by... Reynaldo Torres/shyla TD: 11/09/2016 12:41 JOB #: [id number] CC: Alejandro Chang M.D. Unit #: [id number] #: [id number] Patient: VIBHA PRESTON OPERATIVE REPORT Page 1 of 1 X Eric Ordoñez MD X PROCEDURE OPERATIVE NOTE
--- NOTE | ~2016-11-08 | CT69 ---
[facility] A Service of [facility] & [facility] RADIOLOGY TEXT RESULTS PATIENT: VIBHA PRESTON LOCATION: [facility] 333-01 : [birth year] UNIT #: [id number] AGE: [address]: Alejandro Chang MD SEX: F ORDER DR: [id number] [facility] [address] [place], [place] [address] [id number] I MR#: [id number] Acc #: [id number] NAME: VIBHA PRESTON. : 1955 SEX: F STUDY DATE/TIME: 11/10/2016 15:54 UNIT: [address] ROOM: [facility] STUDY DESCRIPTION: CT Head W Contrast Attending Physician: Alejandro Chang M.D. Ordering Physician: Alejandro Chang M.D. Primary Care Physician: Cookie Chao M.D. MEDICAL IMAGING REPORT This report is preliminary unless electronic signature is present EXAM Head CT with contrast 11/10/2016. INDICATIONS Diagnosed with mediastinal malignancy of the right lung in July 2016. Observation for metastatic disease. Observation for suspected malignant neoplasm. Active malignancy. TECHNIQUE Contrast enhanced CT of the brain was performed. This CT exam was performed with one or more of the following radiation dose reduction techniques: automatic exposure control, adjustment of mA and/or kV according to patient size, and iterative reconstruction. COMPARISON 07/18/2016. FINDINGS CT brain: There is generalized atrophy. Sulci and ventricles otherwise unremarkable. No midline shift. There is redemonstration of an area of chronic encephalomalacic change of the right parietooccipital lobe, previously demonstrated metastatic foci within the left frontal lobe and in the left insular region are no longer identified. No distinct new areas of vasogenic edema or new areas of abnormal enhancement to suggest new foci of metastatic disease. No midline shift. Osseous structures intact. Minimal sphenoid sinus disease. IMPRESSION 1. The previously demonstrated enhancing masses in the left frontal lobe and left insular region are no longer identified with CT. 2. No new areas of abnormal enhancement are identified. No new bone lesions. [facility] A Service of [facility] & [facility] RADIOLOGY TEXT RESULTS PATIENT: VIBHA PRESTON LOCATION: A 333-01 : 59 UNIT #: [id number] AGE: [address]: Alejandro Chang MD SEX: F ORDER DR: 3. Chronic encephalomalacic change in the right parietooccipital lobe. Minimal sphenoid sinus disease. Dictated by... Esteban Paz M.D. THIS IS AN ELECTRONICALLY VERIFIED REPORT Esteban Paz M.D. at 11/11/2016 2:23 PM RAO/nancy TD: 11/11/2016 10:46 JOB #: [id number] MEDICAL IMAGING REPORT Page 1 of 1 COPY
--- NOTE | ~2016-11-08 | CR71 ---
[facility] A Service of [facility] RADIOLOGY TEXT RESULTS PATIENT: VIBHA PRESTON LOCATION: [facility] 333- : 59 UNIT #: [id number] AGE: [address]: Alejandro Chang MD SEX: F ORDER DR: [id number] [facility] [address] [place], [place] [address] [id number] I MR#: [id number] Acc #: [id number] NAME: VIBHA PRESTON. : 1955 SEX: F STUDY DATE/TIME: 11/13/2016 12:11 UNIT: [address] ROOM: [facility] STUDY DESCRIPTION: CR Chest Single View Attending Physician: Alejandro Chang M.D. Ordering Physician: Ramón Benites M.D. Primary Care Physician: Cookie Chao M.D. MEDICAL IMAGING REPORT This report is preliminary unless electronic signature is present EXAM Intraoperative spot film of the chest, 1-view HISTORY Central line placement. Fluoroscopy time 11 seconds FINDINGS Single localized intraoperative fluoroscopic spot film of the central chest demonstrates a probable longitudinally oriented guide wire along the right paraspinal margin, extending along the course of the SVC into the right atrium, with its distal tip not included on the study. Limited evaluation of soft tissue detail. Sponge marker is projected over the midline lower chest, partly visualized. Sternotomy and cardiac valve prosthesis. Dictated by... Sukhdev Degroot M.D. THIS IS AN ELECTRONICALLY VERIFIED REPORT Sukhdev Degroot M.D. at 11/14/2016 3:13 PM DFL/allar TD: 11/13/2016 17:04 JOB #: [id number] MEDICAL IMAGING REPORT Page 1 of 1 COPY
--- NOTE | ~2016-11-08 | CR71 ---
[facility] A Service of [facility] & [facility] RADIOLOGY TEXT RESULTS PATIENT: VIBHA PRESTON LOCATION: [facility] 333- : 59 UNIT #: [id number] AGE: [address]: Alejandro Chang MD SEX: F ORDER DR: [id number] [facility] [address] [place], [place] [address] [id number] I MR#: [id number] Acc #: [id number] NAME: VIBHA PRESTON. : 1955 SEX: F STUDY DATE/TIME: 11/13/2016 13:45 UNIT: [address] ROOM: [facility] STUDY DESCRIPTION: CR Chest Single View Attending Physician: Alejandro Chang M.D. Ordering Physician: Ramón Benites M.D. Primary Care Physician: Cookie Chao M.D. MEDICAL IMAGING REPORT This report is preliminary unless electronic signature is present EXAM Portable chest. HISTORY Central line placement. Gzbc-C-Hjsxzljy removal. Follow up right upper lobe atelectasis. FINDINGS This portable view of the chest shows a new central venous catheter with the tip in the superior vena cava. There is increased density in the right suprahilar region measuring up to 5.4 cm in diameter. This is unchanged from the 11/08/2016 exam. Left lung is clear. Dictated by... Amado Blanca M.D. THIS IS AN ELECTRONICALLY VERIFIED REPORT Amado Blanca M.D. at 11/14/2016 10:03 AM FEL/gz TD: 11/13/2016 16:14 JOB #: [id number] MEDICAL IMAGING REPORT Page 1 of 1 COPY
--- NOTE | ~2016-11-08 | OR ---
Unit #: [id number] #: [id number] Patient: VIBHA PRESTON [id number] [address] [place], [place] [address] [id number] Oscar MR#: [id number] NAME: VIBHA PRESTON. ROOM: [facility] Date of Procedure: 11/13/2016 Admission Date: 11/08/2016 Surgeon: Ramón Benites M.D. : 1955 Attending Physician: Alejandro Chang M.D. Primary Care Physician: Cookie Chao M.D. OPERATIVE REPORT PROCEDURES PERFORMED 1. Removal of MediPort. 2. Ultrasound-guided access of right internal jugular vein. 3. Placement of central venous catheter, not tunneled. INDICATIONS FOR PROCEDURE This is a 61-year-old female with stage IV lung cancer, who had a port placed several months ago for chemotherapy. She now presents with positive blood cultures of enterococcus and MRSA. We requested by the Infectious Disease doctors to remove her port, given concern of possible infection, as well as placement of new triple-lumen catheter for IV access. I talked to the patient about the risks and benefits of the operation. The risks include, but are not limited to, bleeding, injury to the blood vessels, pneumothorax requiring thoracostomy, bladder malfunction, line infection. She expressed understanding, and elected to proceed with the operation. PREOPERATIVE DIAGNOSIS Sepsis. POSTOPERATIVE DIAGNOSIS Sepsis. DESCRIPTION OF PROCEDURE After informed consent was obtained, the patient was brought to the operating room table and placed in supine position. The patient's right neck, left neck, right chest, and left chest were prepped and draped in sterile fashion. At this point, a time-out procedure was performed. I used a #15 blade, made an incision over the previous scar on her chest. I dissected through the subcutaneous tissue with electrocautery. The port was immediately visible. There was no significant drainage or purulent drainage that was noted. The port was not sutured into place and it was grasped with penetrating towel clamps. I then removed the port and catheter from the neck and was sent to microbiology for culture data. I then irrigated the wound. There was no significant bleeding, while I held manual pressure of the right neck. The incision was then closed with 4-0 Monocryl in subcuticular fashion, and covered with Dermabond. I then turned my attention towards placement of the central venous catheter. Using ultrasound, I confirmed that the patency and compressibility of the right internal jugular vein. A 1% lidocaine was infiltrated into the skin. I then accessed the right internal jugular Unit #: [id number] #: [id number] Patient: VIBHA PRESTON vein with a micro needle, I advanced a micro Glidewire into the SVC, and confirmed my position with fluoroscopy. I then exchanged out my micro needle for 4-Upper Sorbian micro sheath catheter using Seldinger technique. I then made a small skin incision with a #11 blade. I then advanced a starter wire into the SVC. I then dilated the neck trach, and then advanced the triple lumen catheter, until its position was in the SVC/RA junction. I then aspirated all three ports, and all three flushed easily. I then sutured the central line into place with 3-0 silks. Central line dressing was placed over the right neck. At the end of the case, all counts were correct. I was present for the entire duration of the procedure. ESTIMATED BLOOD LOSS 5 mL. FINDINGS Tip of central line catheter in SVC/RA junction. SPECIMEN Port with catheter, COMPLICATIONS None. Dictated by... Reynaldo Waters/shyla TD: 11/13/2016 14:58 JOB #: [id number] OPERATIVE REPORT Page 1 of 1 X X PROCEDURE OPERATIVE NOTE
--- NOTE | ~2016-11-08 | CO ---
Unit #: [id number] #: [id number] Patient: VIBHA PRESTON [id number] [address] [facility]. [place], [place] [address] [id number] I MR#: [id number] NAME: VIBHA PRESTON ROOM: 333 Age: 61 Sex: F Admission Date: 11/09/2016 : 1955 Attending Physician: Alejandro Chang M.D. Primary Care Physician: Cookie Chao M.D. CONSULTATION REPORT REASON FOR CONSULTATION Anticoagulation. HISTORY OF PRESENT ILLNESS This is a 61-year-old white female, previously known to our group with a past medical history of a tissue mitral valve replacement in 2001 at [facility] per Dr. Way. The patient has a history of nonobstructive coronary artery disease per cardiac catheterization in 2001. She is known to have hypertension, hyperlipidemia, diabetes mellitus type 2, an old right bundle-branch block, COPD, and paroxysmal atrial fibrillation on chronic anticoagulation with Xarelto. She has a history of hypothyroidism. She was recently admitted to [facility] in 07/2016 for right lung mass and weight loss. She has some chest pain and PVCs during the hospitalization. She was ultimately diagnosed with non-small cell lung cancer per biopsy. There was documentation of METS to the brain. She was discharged and has been undergoing radiation chemotherapy as an outpatient with Dr. Chang. She went to Dr. Chang's office yesterday with complaints of weakness. Labs were obtained. She was found to be anemic. There were some dark tarry stools reported. She was sent to the emergency department for further evaluation. Initial hemoglobin was 6.4. Her previous hemoglobin was 10 to 13. Platelets are mildly low at 126,000. Sodium was low at 128. Glucose was elevated at 194. Chest x-ray revealed improving aeration of the right upper lobe. She was transfused packed red blood cells and Gastroenterology was consulted. Cardiology was consulted for anticoagulation. The patient is on Xarelto for her atrial fibrillation and has been stopped. PAST MEDICAL HISTORY 1. Recent admission to [facility] in 07/2016 for right lung mass and weight loss. Diagnosed with non-small cell lung cancer with biopsy. 2. 2D echocardiogram on 05/17/2015 revealed an ejection fraction 55% to 60%. Mitral valve well seated. Trace tricuspid regurgitation. Moderate aortic regurgitation. 3. Lexiscan Cardiolite stress test on 07/01/2015 revealed no ischemia. Ejection fraction 56%. 4. History of severe mitral regurgitation, status post tissue mitral valve replacement in [address] at [facility]. 5. Cardiac catheterization in [address] Morales revealed left main 30% in ostium. LAD and right coronary artery normal. Left circumflex 40% to 50%. Ejection fraction 20% to 30%. Severe mitral regurgitation. 6. Paroxysmal atrial fibrillation, on anticoagulation with Xarelto. Unit #: [id number] #: [id number] Patient: VIBHA PRESTON 7. Hypertension. 8. Diabetes mellitus, type 2. 9. Hyperlipidemia. 10. COPD. 11. Old right bundle-branch block. 12. Hypothyroidism. 13. Reformed tobacco abuse. PAST SURGICAL HISTORY 1. Tissue mitral valve replacement in 2001. 2. Cardiac catheterization in 2001. 3. Cholecystectomy. 4. Hysterectomy. 5. Lung biopsy. HOME MEDICATIONS Xanax 1 mg p.o. as needed; Lasix 20 mg p.o. daily; Proventil 1 inhalation q.4 hours p.r.n.; Percocet 10/325 mg one tablet p.o. every 6 hours p.r.n.; prednisone 5 mg p.o. b.i.d.; Synthroid 0.05 mg p.o. daily; metformin 1 tablet p.o. every evening, need to clarify dosing; Toprol-XL 25 mg p.o. daily; folic acid 1 mg p.o. daily; Zofran 4 mg p.o. every 6 hours p.r.n. for nausea; Benadryl 25 mg p.o. b.i.d. p.r.n. ALLERGIES No known drug allergies. SOCIAL HISTORY The patient lives in a private residence. She is a reformed smoker. There are no reports of alcohol or illicit drug use. FAMILY HISTORY Significant for heart disease in both of her parents. Her brother had Down syndrome and from congestive heart failure. She had another brother, who from cancer. REVIEW OF SYSTEMS A 10-point review of systems negative except for details noted above in HPI. PHYSICAL EXAMINATION VITAL SIGNS: Temperature 98.9, pulse 121, blood pressure 133/78. CONSTITUTIONAL: This is a 61-year-old white female, in no acute distress. SKIN: Warm and dry. NECK: Supple. No jugular vein distention. No hepatojugular reflux. Normal carotid upstrokes. No carotid bruits auscultated. HEART: S1 and S2. Slightly tachycardic. No murmurs, rubs, or gallops. LUNGS: Bilateral breath sounds have scattered wheezes. Respirations are even and nonlabored. No rales or rhonchi. ABDOMEN: Soft, nontender, and nondistended. Positive bowel sounds auscultated x4 quadrants. No ascites noted. EXTREMITIES: Bilateral lower extremities have no pretibial pitting edema. DP and PT pulses are 2+. Capillary refill is less than 2 seconds. DIAGNOSTIC STUDIES LABORATORY RESULTS: White blood cell count 7.3, hemoglobin 9, hematocrit 27.1, and platelets 126. Sodium 128, potassium 4.6, chloride 91, CO2 of 29, BUN 17, creatinine 1.1, glucose 194. INR 1.2, PTT 32.9. Unit #: [id number] #: [id number] Patient: VIBHA PRESTON IMAGING STUDIES: Chest x-ray reveals improving aeration of the right upper lobe. CARDIOVASCULAR STUDIES: EKG, pending. IMPRESSION 1. Symptomatic anemia. 2. Gastrointestinal bleed. 3. Anemia. 4. Mild thrombocytopenia. 5. Non-small cell lung cancer. 6. Chronic obstructive pulmonary disease. 7. History of paroxysmal atrial fibrillation, previously on Xarelto. 8. Normal stress test in 06/2015. 9. Nonobstructive coronary artery disease per cardiac catheterization in 2001. 10. Ejection fraction 55% to 60% in 07/2015. 11. History of tissue mitral valve replacement in 2001 due to severe mitral regurgitation. 12. Hypertension. 13. Hyperlipidemia. 14. Diabetes mellitus, type 2. 15. Old right bundle-branch block. 16. Hypothyroidism. 17. Hyponatremia. PLAN 1. The patient presented to the hospital from oncologist office with complaints of weakness and dark stools. She was admitted for anemia and GI bleed. 2. Cardiology was consulted for anticoagulation. 3. The patient has received 2 blood transfusions and her hemoglobin has improved to 9.0. However due to bleeding and recent transfusion, she has been advised to stop Xarelto for the time being. 4. There are no complaints of chest pain or evidence of CHF on exam. 5. The patient has a recent abnormal TSH and hemoglobin A1c. We will repeat levels today. 6. She will be continued on metoprolol for heart rate control. An EKG will be obtained to assess rhythm. Dictated by... Laura Bravo APRN for Reynaldo Green/shyla TD: 11/09/2016 23:58 JOB #: [id number] Unit #: [id number] #: [id number] Patient: MOHANVIBHA Aleks CONSULTATION REPORT Page 1 of 1 X X CONSULTATION REPORT
--- NOTE | ~2016-11-08 | CT57 ---
[facility] A Service of [facility] RADIOLOGY TEXT RESULTS PATIENT: VIBHA PRESTON LOCATION: [facility] 333- : [birth year] UNIT #: [id number] AGE: [address]: Alejandro Chang MD SEX: F ORDER DR: [id number] [facility] [address] [place], [place] [address] [id number] I MR#: [id number] Acc #: [id number] NAME: VIBHA PRESTON. : 1955 SEX: F STUDY DATE/TIME: 11/09/2016 UNIT: [address] ROOM: [facility] STUDY DESCRIPTION: CT Chest Wo Cont Attending Physician: Alejandro Chang M.D. Ordering Physician: Alejandro Chang M.D. Primary Care Physician: Cookie Chao M.D. MEDICAL IMAGING REPORT This report is preliminary unless electronic signature is present EXAM CT chest without contrast 11/09/2016, 1643 hours HISTORY 61-year-old woman with history of metastatic cancer, for evaluation of 3-4 day history of cough and congestion. COMPARISON Chest CT 10/17/2016. TECHNIQUE Helical non-contrasted images were obtained from the thoracic inlet through the adrenal glands. Sagittal and coronal reconstructions were performed. Total exam DLP 504 mGy/cm. This CT exam was performed with one or more of the following radiation dose reduction techniques: automatic exposure control, adjustment of mA and/or kV according to patient size, and iterative reconstruction. FINDINGS Images through the thoracic inlet demonstrate a right central venous port catheter with tip terminating at the junction of SVC and right atrium. No supraclavicular node is seen. Images through the chest without contrast demonstrate median sternotomy change with stable cardiac chambers and pericardium. The mass abutting the right hilum, extending superiorly, is again demonstrated. There is dilated right upper lobe bronchus with increased dilatation of the bronchus, which was seen previously but is larger and more prevalent. The mass-like opacity and now extends to the anterior and superior pleural surface where did not on the study of 10/17/2016. This likely indicates the presence of a post-obstructive pneumonia at the right apex, which is STS. [facility] A Service of [facility] & [facility] RADIOLOGY TEXT RESULTS PATIENT: VIBHA PRESTON LOCATION: [facility] 333-01 : [birth year] UNIT #: [id number] AGE: [address]: Alejandro Chang MD SEX: F ORDER DR: new or recurrent. This the possible source of the patient's coughing. The right mainstem bronchus is focally narrowed by the mass at the hilum, similar to prior study. There is a more dilatation of the bronchus peripheral to this area of narrowing, best seen on image 18. The right lower lobe is clear. There is no evidence of pneumonia or fluid in the left lung. Limited views through the upper abdomen are negative. IMPRESSION The exam is limited by the lack of contrast and some motion artifact. Again demonstrated is the right suprahilar mass which extends into the mediastinum. The mass itself appears similar in size to 10/17/2016. There is an area of focal extrinsic narrowing of the right mainstem bronchus, similar to prior study, however there is more dilatation or bronchiectasis peripheral to this as it extends into the mass. Superior to the mass and slightly lateral to the mass, there is new airspace density which likely represents recurrent post-obstructive pneumonitis. This had improved on the study of 10/17/2016 but now, density does extend to this apex into the anterolateral pleural surface representing a change from 10/17/2016, most likely representing post-obstructive pneumonitis given the short interval. There is no pleural effusion. The left lung is clear. STAT * RESULT Dictated by... Brittni Dominique M.D. THIS IS AN ELECTRONICALLY VERIFIED REPORT Brittni Dominique M.D. at 11/12/2016 2:23 PM DARBY/albert TD: 11/09/2016 17:14 JOB #: [id number] MEDICAL IMAGING REPORT Page 1 of 1 COPY
--- NOTE | ~2016-11-08 | DS ---
Unit #: [id number] #: [id number] Patient: VIBHA PRESTON [id number] [address] [address] [id number] I MR#: [id number] NAME: VIBHA PRESTON ROOM: 333 Age: 61 Sex: F Admission Date: 11/08/2016 : 1955 Discharge Date: 11/15/2016 Attending Physician: Alejandro Chang M.D. Primary Care Physician: Cookie Chao M.D. DISCHARGE SUMMARY PRINCIPAL DIAGNOSES 1. Methicillin resistant Staph aureus Enterococcal bacteremia secondary to healthcare-associated pneumonia. 2. Healthcare-associated pneumonia. 3. Sepsis. 4. Metastatic non-small cell lung cancer with a history of brain metastases. 5. Acute confusional state, most likely to toxic metabolic encephalopathy. 6. Mechanical mitral valve. 7. Severe anemia, transfusion requiring, secondary to gastrointestinal bleeding. 8. Gastritis, likely cause of gastrointestinal bleeding. 9. Nonobstructive coronary artery disease. 10. Type 2 diabetes mellitus. 11. Hypertension. 12. Hypothyroidism. PRINCIPAL PROCEDURE Ultrasound guided access of the right internal jugular vein and placement of a non-tunneled central venous catheter and removal of MediPort by Dr. Ramón Benites on 11/13/2016. TRANSFER MEDICATIONS 1. Zofran 4 mg p.o. q.6 p.r.n. 2. Diphenhydramine 25 mg twice a day p.r.n. for itching. 3. Seroquel 50 mg at bedtime. 4. Xanax 1 mg p.o. three times a day. 5. Brovana 15 mcg per nebulizer every 12 hours. 6. Sotalol 80 mg twice daily. 7. MiraLAX 17 mg once daily. 8. Furosemide 20 mg once daily. 9. Albuterol 2.5 mg unit dose every four hours. 10. Pulmicort 0.5 mg twice a day. 11. Prednisone 5 mg in the morning and 2.5 mg in the evening. 12. Tylenol 650 mg q.4 p.r.n. 13. Spiriva 80 mcg inhaler twice a day. 14. Lovenox 60 mg subcu every 24 hours until INR is greater than 2.5. 15. Prozac 20 mg once daily. 16. Warfarin 4 mg once daily. 17. She required daily protime as well as monitoring of her CBC for anemia. HISTORY OF PRESENT ILLNESS Unit #: [id number] #: [id number] Patient: VIBHA PRESTON Ms. is a 61-year-old with a history of metastatic non-small cell lung cancer with brain metastases, seen in the office on 11/08/2016, and was found to be pale with extreme weakness. A CBC was checked and hemoglobin was found to be 6.4. She was admitted, transfused packed cells, underwent EGD by Dr. Eric Ordoñez with finding of multiple small ulcers on the gastric area with severe gastritis. She was on Protonix 40 mg twice a day. Following admission, she became febrile and confused which was worsening confusion, presented baseline. Sepsis was considered and CT scans confirmed an area of infiltration adjusting to her previous noted lung mass, likely pneumonia. Blood cultures grew MRSA as well as Enterococcus and (1) to which vancomycin and Zosyn were added was continued. She was seen by Dr. [place] of [place]. Her MediPort was (2) with the tip cultures being negative. Repeat blood cultures were negative and she had both a central line as well as midline placed with the central line removed. There was concern whether this was a tissue valve versus a mechanical mitral valve and, after fluoroscopy and Dr. Morales's opinion, this was a mechanical mitral valve. During hospitalization, she also underwent a CT scan of the head which showed significant improvement in the brain metastases. She was seen by physical therapy. She was quite weak requiring some assistance with walking and would benefit from skilled rehab placement which is to be done. Dictated by... Reynaldo Dailey/nicanor TD: 11/15/2016 11:04 JOB #: [id number] DISCHARGE SUMMARY Page 1 of 1 X Alejandro Chang MD DISCHARGE SUMMARY
--- NOTE | ~2016-11-08 | CO ---
Unit #: [id number] #: [id number] Patient: VIBHA PRESTON [id number] [address] [place], [place] [address] [id number] I MR#: [id number] NAME: VIBHA PRESTON. ROOM: 333 Age: 61 Sex: F Admission Date: 11/09/2016 : 1955 Attending Physician: Alejandro Chang M.D. Primary Care Physician: Cookie Chao M.D. CONSULTATION REPORT HISTORY OF PRESENT ILLNESS Ms. Preston is a 61-year-old white female, known to me, with a history of non-small cell lung cancer, right upper lobe with encroachment on the right mainstem and bronchus intermedius, who was diagnosed in July of this year. She has undergone chemo and radiation therapy, completing radiation about 4 weeks ago. She presented with anemia and GI bleed. She also had a fever, and chest x-ray revealed an increased density in the right upper lobe. CT scan of the chest suggested a postobstructive pneumonia. We have been asked to see. She is not able to give much history. Her granddaughter talks for her. PAST MEDICAL HISTORY Significant for mitral valve replacement, on anticoagulation; hypertension; hyperglycemia; and non-small cell lung cancer, right upper lobe. PAST SURGICAL HISTORY Cholecystectomy, total abdominal hysterectomy, and BSO. ALLERGIES No known allergies. MEDICATIONS Current medications include Maxipime, vancomycin, Xanax, Lasix, prednisone 5 mg daily, levothyroxine, metoprolol, folic acid, albuterol, and Protonix. FAMILY HISTORY Diabetes, malignancy, and congestive heart failure. SOCIAL HISTORY Lives with brother. Stopped smoking 8 years ago. No alcohol or illicit drugs. REVIEW OF SYSTEMS Really not possible, the patient does not want to talk. PHYSICAL EXAMINATION VITAL SIGNS: Blood pressure is 103/83, pulse 135, respiratory rate 18, and temperature 102.1. HEENT: Normocephalic and atraumatic. Pupils are equal, round, and reactive. Sclerae nonicteric. Nasal passages patent. Posterior pharynx crowded. Poor dentition. NECK: Supple. Trachea midline. No cervical or supraclavicular lymphadenopathy. Unit #: [id number] #: [id number] Patient: VIBHA PRESTON LUNGS: Reveal occasional rhonchi. CARDIAC: Regular rate and rhythm. Tachycardic. ABDOMEN: Nontender. Bowel sounds present without clubbing, cyanosis, or edema. DIAGNOSTIC STUDIES IMAGING STUDIES: CT scan and chest x-ray as noted, personally reviewed. LABORATORY RESULTS: Arterial blood gas; pH of 7.49, pCO2 of 39, pO2 of 94 on 2 L. Chemistries were reviewed. Sodium 128, potassium 4.6, and glucose 194. PT/INR is 1.2. White count 6000; hematocrit 23.5, was 19.1 on admission; and platelets 100,000. H. pylori is negative. Blood cultures; one of two sets growing gram-positive cocci in clusters. IMPRESSION 1. Postobstructive pneumonia, right upper lobe. 2. Non-small cell lung cancer, status post chemo-radiation therapy. 3. Chronic obstructive pulmonary disease. 4. Gastrointestinal bleed, on anticoagulation. 5. Mitral valve replacement. 6. Hypertension. 7. Hypoxemic respiratory failure. PLAN Broad-spectrum antibiotics to cover gram-negatives and MRSA. Inhaled bronchodilators. Holding anticoagulation. Monitor H and H. Transfuse as needed. Further recommendations pending this. Dictated by... Kingston Montiel M.D. YVROSE/shyla TD: 11/10/2016 18:04 JOB #: [id number] CONSULTATION REPORT Page 1 of 1 X Kingston Montiel MD X CONSULTATION REPORT
--- NOTE | ~2016-11-08 | CR63 ---
[facility] A Service of [facility] & [facility] RADIOLOGY TEXT RESULTS PATIENT: VIBHA PRESTON LOCATION: [facility] 333-01 : [birth year] UNIT #: [id number] AGE: [address]: Alejandro Chang MD SEX: F ORDER DR: [id number] [facility] [address] [place], [place] [address] [id number] I MR#: [id number] Acc #: [id number] NAME: VIBHA PRESTON. : 1955 SEX: F STUDY DATE/TIME: 11/08/2016 15:03 UNIT: [address] ROOM: [facility] STUDY DESCRIPTION: CR Chest 2 View Attending Physician: Alejandro Chang M.D. Ordering Physician: Alejandro Chang M.D. Primary Care Physician: Cookie Chao M.D. MEDICAL IMAGING REPORT This report is preliminary unless electronic signature is present EXAM Two-view chest INDICATIONS Shortness of air. Cough and congestion for 3 days. FINDINGS PA and lateral views of the chest compared to 07/18/2016. Heart mediastinal contours are unchanged. There is significant improvement in aeration in the right upper lobe. Left lung is clear. No new pulmonary opacities. IMPRESSION Improving aeration in the right upper lobe. No new cardiopulmonary findings. Dictated by... Siva Loredo M.D. THIS IS AN ELECTRONICALLY VERIFIED REPORT Siva Loredo M.D. at 11/08/2016 8:10 PM BRUNO/sanjana TD: 11/08/2016 20:00 JOB #: [id number] MEDICAL IMAGING REPORT Page 1 of 1 COPY
--- NOTE | ~2016-11-08 | CO ---
Unit #: [id number] #: [id number] Patient: VIBHA PRESTON [id number] [address] [place], [place] [address] [id number] I MR#: [id number] NAME: VIBHA PRESTON. ROOM: 333 Age: 61 Sex: F Admission Date: 11/09/2016 : 1955 Attending Physician: Alejandro Chang M.D. Primary Care Physician: Cookie Chao M.D. CONSULTATION REPORT REASON FOR CONSULTATION Positive blood cultures. HISTORY OF PRESENT ILLNESS Ms. Preston is a 61-year-old white female with a history of non-small cell lung cancer who was diagnosed in July this past year, who has undergone chemo and radiation therapy, which she completed about 4 weeks ago. She had arrived to her oncologist's office and was directly admitted due to anemia and GI bleed. She also had complaints of fever, and a chest x-ray revealed increased density in the right upper lobe with concern for postobstructive pneumonia. We are currently being asked to see the patient for positive blood cultures. One blood culture on November 09 is growing coagulase negative Staphylococcus, and one blood culture also from November 09 is growing Enterococcus species and MRSA. Currently the patient is on Zosyn and vancomycin. The patient has a port, which was placed in July. She also has a history of mitral valve replacement. She is currently sitting up in the chair. Daughter and grandchildren are at the bedside. PAST MEDICAL HISTORY Significant for mitral valve replacement, hypertension, hyperglycemia, diabetes mellitus and non-small cell lung cancer in right upper lobe. PAST SURGICAL HISTORY Includes cholecystectomy, total abdominal hysterectomy and BSO. ALLERGIES No known allergies. MEDICATIONS Reviewed. Current antibiotics include Zosyn and vancomycin. FAMILY HISTORY Diabetes, malignancy and congestive heart failure. SOCIAL HISTORY She lives with a brother. She stopped smoking about 8 years ago. Denies alcohol or illicit drug use. REVIEW OF SYSTEMS Very limited since the patient is having daughter answer for her. Patient complains of fever. Denies any pain. Complains of shortness of air and cough, which does not feel any worse than usual. Denies nausea. Denies vomiting. Denies port pain. Denies chest pain. Denies back pain. Unit #: [id number] #: [id number] Patient: VIBHA PRESTON PHYSICAL EXAM VITAL SIGNS: Temperature 97.3, heart rate 86, respirations 18, blood pressure 143/80. HEENT: Normocephalic. Pupils are equal, round and reactive. NECK: Neck is supple. LUNGS: Diminished throughout, scattered rhonchi, nonlabored. Positive nonproductive cough. CARDIAC: Regular rate. ABDOMEN: Soft, nontender. Positive bowel sounds. SKIN: Port site was clean and dry. No tenderness. No erythema. DIAGNOSTIC STUDIES IMAGING: CT of chest with - Slightly lateral to the mass is a new airspace density, which likely represents a recurrent postobstructive pneumonitis. CT of head with no new areas of abnormal enhancement. No new bone lesions. LABORATORY DATA: BUN 15, creatinine 0.9, sodium 133, AST 29, ALT 23. White count 4.5, hemoglobin 9.3. MICROBIOLOGY DATA: One of two blood cultures with Enterococcus species and MRSA. ASSESSMENT 1. Non-small cell lung cancer status post chemo and radiation therapy. 2. Possible postobstructive pneumonia. 3. MRSA and Enterococcus bacteremia. 4. Mitral valve replacement. PLAN Pending cultures, will give a dose of daptomycin and gentamicin to cover for possible VRE pending ID of Enterococcus. Will check a two-D echo to follow up for possible infective endocarditis. Patient my need MICHOACANO. Will repeat blood cultures. Unclear source of bacteremia, either infective endocarditis or possibly from port. Will ask IR to remove current port and place a new central line. Continue vancomycin and Zosyn at this time and repeat blood cultures. Will discuss further plans with Reynaldo, and further recommendations per Dr. Angeles. Dictated by... Bisi Jeronimo APRN for Eloy Angeles M.D. DT/dayne TD: 11/12/2016 10:38 JOB #: [id number] Unit #: [id number] #: [id number] Patient: VIBHA PRESTON CONSULTATION REPORT Page 1 of 1 X X CONSULTATION REPORT
--- NOTE | ~2016-11-08 | CO ---
Unit #: [id number] #: [id number] Patient: LATOYA PRESTON [id number] [address] [place], [place] [address] [id number] I MR#: [id number] NAME: LATOYA PRESTON. ROOM: 333 Age: Sex: F Admission Date: 11/08/2016 : 1955 Attending Physician: Alejandro Chang M.D. Primary Care Physician: Cookie Chao M.D. CONSULTATION REPORT CHIEF COMPLAINT Admitted through the office with severe anemia. HISTORY OF PRESENT ILLNESS Ms. Latoya Preston is 61 years old with a history of metastatic non-small cell lung cancer of the right upper lobe of the lung with history of brain metastasis treated with stereotactic brain radiation therapy, chemotherapy with Alimta, carboplatin, and KEYTRUDA having had 3 cycles of chemotherapy. She is also chronically anticoagulated with Xarelto for atrial fibrillation associated with bioprosthetic mitral valve. Ms. Preston was seen in the office complaining of increasing weakness and fatigue. She was found to be severely anemic with a hemoglobin of 6.8 and admitted for further evaluation. She did give a history of black, tarry stool suggestive of possibility of GI bleeding and the plans are to hold her anticoagulation. PAST MEDICAL HISTORY Tissue mitral valve placed in 2001. She has a history of atrial fibrillation and is on long-term anticoagulation for the same. She also has a history of nonobstructive coronary artery disease, hypertension, hyperlipidemia, type 2 diabetes mellitus, and COPD. Lung cancer was diagnosed in July of 2016 when she presented with respiratory failure after being treatment in [facility] 6 weeks prior for a pneumonia. Workup included a large right upper lobe lung mass along with brain metastasis, which received stereotactic radiation therapy. Her most recent CT scan has shown stable findings in her chest, but no evidence of metastatic disease in the abdomen. PAST SURGICAL HISTORY Tissue mitral valve replacement in 2001, cardiac catheterization the same year, cholecystectomy, hysterectomy, and lung biopsy. ALLERGIES She has no known medication allergies. FAMILY HISTORY Notable for a brother with lung cancer. SOCIAL HISTORY Smokes a few cigarettes. She lives with her brother and his grandson. Single. She has a son and daughter, both involved in her care. REVIEW OF SYSTEMS Unit #: [id number] #: [id number] Patient: LATOYA PRESTON Fourteen point review of systems taken. CONSTITUTIONAL: Fatigue, weakness, decreased appetite. EYES: Negative. EARS, NOSE, MOUTH, AND THROAT: Negative. CARDIOVASCULAR: No chest pains or palpitations. RESPIRATORY: Shortness of breathing (1) . She has cough with expectoration and she tells me it is a very hacking cough and after a long bout of coughing, she is able to bring up a little phlegm. No hemoptysis. GASTROINTESTINAL: Negative. GENITOURINARY: Negative. NEUROLOGIC: Family reports she has been mildly confused. ALLERGIC/LYMPHATIC: Negative. SKIN: Negative. PSYCHIATRIC: History of depression in the past. PHYSICAL EXAMINATION VITAL SIGNS: On admission, temperature is 97.8, pulse rate of 60, blood pressure is 171/92, respiratory rate is 20. GENERAL APPEARANCE: She is awake, alert, and oriented x3. HEAD/ENMT: Shows she is pale and nonicteric. Mucous membranes are dry. NECK: No adenopathy, JVD, or thyromegaly. CARDIOVASCULAR: First and second heart sounds are heard and regular with no murmurs, gallops, or rubs. LUNGS: Chest expansion symmetric. Bilateral equal and normal breath sounds. ABDOMEN: Soft and nontender. Bowel sounds are active. No organomegaly. EXTREMITIES: Warm. Good pulses. No edema, cyanosis, or clubbing. NEUROLOGICAL: She is awake, alert, and oriented x3 without any focal deficits. PSYCHIATRIC: Flat affect. SKIN: Negative. DIAGNOSTIC STUDIES LABORATORY: White count 7.9, hemoglobin is 6.4, platelet count is 165,000. Her pro-time is 12.9, INR 1.2, and PTT is 32.9. Ferritin level is greater than 1500. Complete metabolic panel shows a sodium of 128, BUN of 17, creatinine is 1.1, EGFR is 54.9. LFTs showed albumin of 2.7. Iron is 36, TIBC is 238, percent saturated is 15%. ASSESSMENT AND PLAN Ms. Latoya Preston is 61 years old with a history of metastatic non-small cell lung cancer with brain metastasis, COPD, atrial fibrillation with a tissue bioprosthetic mitral valve, nonobstructive coronary artery disease, and type 2 diabetes mellitus admitted with severe anemia with a history suggestive of a GI bleed. She is on long-term anticoagulation with Xarelto for her atrial fibrillation, which may be part of the reason for the GI bleeding. I discussed with Ms. Preston that we plan to transfuse her with 2 units of packed cells, monitor her CBC, and transfuse as necessary. Her Xarelto will be held and her other medications reviewed and we will consult Dr. Eric Ordoñez of GI to evaluate for upper and lower endoscopy. We will also consult [facility] to consult to see the need for long-term anticoagulation, it is desirable to discontinue anticoagulation if feasible given a history of GI bleeding. Given her mild confusion, we will plan to also image the head with a MRI of the brain. Unit #: [id number] #: [id number] Patient: LATOYA PRESTON Dictated by... Reynaldo Dailey/rosetta TD: 11/15/2016 08:45 JOB #: [id number] CONSULTATION REPORT Page 1 of 1 X Alejandro Chang MD X CONSULTATION REPORT
[~2016-11-08 12:22] MED LIST changes: -ALBUTEROL2.5 MG/3 M INH; -ALBUTEROL20 ml INH; -AMLODIPINE BESYL5 MG PO; -BENADRYL ALLERG25 M1 PO; -BROVANA15 MCG/2 M INH; -BUDESONIDE0.5 MG/2 M INH; -COMPAZINE5 M1 PO; -COMPAZINE5 M2 PO; -DIPHENHYDRAMINE25 M1 PO; -DUONEB INH; -DURAGESIC1 EAC1 TOP; -FENTANYL1 EAC1 TOP; -FERROUS GLUCON324 M1 PO; -FLUOXETINE HCL20 M1 PO; -FOLIC ACID1 MG PO; -FUROSEMIDE40 MG PO; -KCL PO; -LASIX20 MG PO; -LEVAQUIN750 MG PO; -LEVOTHYROXINE50 MCG PO; -LOPRESSOR PO; -MAG-OX 400400 M1 PO; -MIRALAX17 GM PO; -NORVASC PO; -ONDANSETRON ODT4 MG PO; -OXYCODONE HCL15 MG PO; -PANTOPRAZOLE SO40 MG PO; -PATIENT'S PHARMACY; -PHENERGAN25 M1 PO; -PHENERGAN25 MG PO; -POLYETHYLENE G500 G1 PO; -PREDNISONE; -PREDNISONE PO; -PREDNISONE2.5 MG PO; -PREDNISONE5 M1 PO; -PROTONIX PO; -PROZAC10 MG PO; -SOTALOL AF80 M1 PO; -SPIRIVA18 MCG INH; -TYL325 PO; -VALIUM10 M1 PO; -WARFARIN SODIUM3 M1 PO; -XANAX1 MG PO
[2016-11-08 14:32] LABS: HEMATOCRIT 19.1 % (35.0-45.0); MEAN CELL VOLUME 96.9 FL (83-96); MEAN CORPUSCULAR HEMOGLOBIN 32.4 PG (28-34); MEAN CORPUSCULAR HGB CONC 33.5 g/dL (30-36); MEAN PLATELET VOLUME 7.3 FL (6.5-11.5); RED BLOOD COUNT 1.97 X10e (3.90-5.30); RED CELL DISTRIBUTION WIDTH 22.3 % (11.0-15.5); WHITE BLOOD COUNT 7.9 X10e3 (4.0-10.5)
[2016-11-08 14:35] LABS: HEMOGLOBIN 6.4 gm/dL (12.0-16.0)
[2016-11-08 14:43] LABS: INR 1.2; PARTIAL THROMBOPLASTIN TIME 32.9 SECONDS (23.5-31.3); PROTHROMBIN TIME (PATIENT) 12.9 SECONDS (10.0-11.7)
[2016-11-08 16:59] LABS: ALBUMIN SERUM 2.7 g/dL (3.5-5.0); BUN/CREATININE RATIO 15.45; CALCIUM SERUM 8.7 mg/dL (8.4-10.2); CREATININE SERUM 1.1 mg/dL (0.6-1.4); GLOM FILT RATE Estimated 54.9 mL/min (>60); POTASSIUM 4.6 mmol/L (3.5-5.1); PROTEIN TOTAL SERUM 7.6 g/dL (6.0-8.3)
[2016-11-08 19:00] LABS: HEMATOCRIT 24.2 % (35.0-45.0); MEAN CORPUSCULAR HEMOGLOBIN 32.3 PG (28-34); MEAN CORPUSCULAR HGB CONC 34.6 g/dL (30-36); MEAN PLATELET VOLUME 7.1 FL (6.5-11.5); RED BLOOD COUNT 2.6 X10e (3.90-5.30); RED CELL DISTRIBUTION WIDTH 20.5 % (11.0-15.5); WHITE BLOOD COUNT 7.3 X10e3 (4.0-10.5)
[2016-11-08 19:02] LABS: HEMOGLOBIN 8.4 gm/dL (12.0-16.0); MEAN CELL VOLUME 93.3 FL (83-96)
[2016-11-09 01:56] LABS: HEMATOCRIT 27.1 % (35.0-45.0)
[2016-11-10 05:57] LABS: HEMATOCRIT 23.5 % (35.0-45.0); MEAN CELL VOLUME 92.7 FL (83-96); MEAN CORPUSCULAR HEMOGLOBIN 31.5 PG (28-34); MEAN PLATELET VOLUME 7.3 FL (6.5-11.5); RED BLOOD COUNT 2.54 X10e (3.90-5.30); RED CELL DISTRIBUTION WIDTH 21.6 % (11.0-15.5)
[2016-11-10 09:20] LABS: ARTERIAL BLD GAS O2 SATURATION 96.1 % (90.0-100.0); ARTERIAL BLOOD GAS CARBOXY HB 1.5 %sat (0.0-9.0); ARTERIAL BLOOD GAS HCO3 30.2 mmol/L; ARTERIAL BLOOD GAS MET HB 0.9 %sat (0.0-2.0); ARTERIAL BLOOD GAS PCO2 39.4 mmHg (35.0-45.0); ARTERIAL BLOOD GAS PO2 94.1 mmHg (80.0-100); ARTERIAL BLOOD GAS pH 7.493 (7.350-7.450)
[2016-11-10 09:22] LABS: ARTERIAL BLOOD GAS ALLEN TEST N; ARTERIAL BLOOD GAS ART SITE RIGHT RADIAL; ARTERIAL BLOOD GAS DELIVERY NASAL CANNULA; ARTERIAL DRAW? YES
[2016-11-10 14:08] LABS: CALCIUM SERUM 7.9 mg/dL (8.4-10.2); CREATININE SERUM 0.9 mg/dL (0.6-1.4); POTASSIUM 4.1 mmol/L (3.5-5.1)
[2016-11-11 06:31] LABS: HEMATOCRIT 21.2 % (35.0-45.0); HEMOGLOBIN 7.1 gm/dL (12.0-16.0); MEAN CORPUSCULAR HEMOGLOBIN 31.1 PG (28-34); MEAN CORPUSCULAR HGB CONC 33.5 g/dL (30-36); MEAN PLATELET VOLUME 7.5 FL (6.5-11.5); RED BLOOD COUNT 2.28 X10e (3.90-5.30); RED CELL DISTRIBUTION WIDTH 21.7 % (11.0-15.5); WHITE BLOOD COUNT 4.7 X10e3 (4.0-10.5)
[2016-11-12 06:04] LABS: HEMATOCRIT 28.3 % (35.0-45.0); MEAN CORPUSCULAR HEMOGLOBIN 29.4 PG (28-34); MEAN CORPUSCULAR HGB CONC 33.1 g/dL (30-36); MEAN PLATELET VOLUME 7.8 FL (6.5-11.5); RED BLOOD COUNT 3.18 X10e (3.90-5.30); RED CELL DISTRIBUTION WIDTH 22.3 % (11.0-15.5); WHITE BLOOD COUNT 4.5 X10e3 (4.0-10.5)
[2016-11-12 06:09] LABS: HEMOGLOBIN 9.3 gm/dL (12.0-16.0); MEAN CELL VOLUME 88.8 FL (83-96)
[2016-11-12 06:52] LABS: ALBUMIN SERUM 2.2 g/dL (3.5-5.0); BILIRUBIN,TOTAL 0.4 mg/dL (0.2-2.0); BUN/CREATININE RATIO 16.66; CALCIUM SERUM 8.5 mg/dL (8.4-10.2); CREATININE SERUM 0.9 mg/dL (0.6-1.4); POTASSIUM 3.8 mmol/L (3.5-5.1); PROTEIN TOTAL SERUM 6.6 g/dL (6.0-8.3)
[2016-11-12 12:27] LABS: INR 1.1; PROTHROMBIN TIME (PATIENT) 11.4 SECONDS (10.0-11.7)
[2016-11-13 05:23] LABS: HEMOGLOBIN 9.3 gm/dL (12.0-16.0); MEAN CELL VOLUME 88.2 FL (83-96); MEAN CORPUSCULAR HEMOGLOBIN 29.3 PG (28-34); MEAN CORPUSCULAR HGB CONC 33.2 g/dL (30-36); RED BLOOD COUNT 3.18 X10e (3.90-5.30); WHITE BLOOD COUNT 5.1 X10e3 (4.0-10.5)
[2016-11-14 06:10] LABS: HEMATOCRIT 30.9 % (35.0-45.0); HEMOGLOBIN 10.3 gm/dL (12.0-16.0); MEAN CELL VOLUME 88.5 FL (83-96); MEAN CORPUSCULAR HEMOGLOBIN 29.5 PG (28-34); MEAN CORPUSCULAR HGB CONC 33.4 g/dL (30-36); MEAN PLATELET VOLUME 6.9 FL (6.5-11.5); RED BLOOD COUNT 3.49 X10e (3.90-5.30); WHITE BLOOD COUNT 7.6 X10e3 (4.0-10.5)
[2016-11-15 05:26] LABS: INR 1.1; PROTHROMBIN TIME (PATIENT) 11.4 SECONDS (10.0-11.7)
[2016-11-15 05:31] LABS: HEMATOCRIT 26.3 % (35.0-45.0); HEMOGLOBIN 8.8 gm/dL (12.0-16.0); MEAN CELL VOLUME 89.8 FL (83-96); MEAN CORPUSCULAR HEMOGLOBIN 30.2 PG (28-34); MEAN CORPUSCULAR HGB CONC 33.6 g/dL (30-36); MEAN PLATELET VOLUME 7.3 FL (6.5-11.5); RED BLOOD COUNT 2.93 X10e (3.90-5.30)
[2016-11-15 05:46] LABS: BUN/CREATININE RATIO 14.44; CALCIUM SERUM 8.1 mg/dL (8.4-10.2); CREATININE SERUM 0.9 mg/dL (0.6-1.4); POTASSIUM 3.1 mmol/L (3.5-5.1)
[2016-11-15 06:21] LABS: WHITE BLOOD COUNT 3.5 X10e3 (4.0-10.5)
[2016-11-15 16:24] LABS: ASPERGILLUS FLAVUS Negative (Negative); ASPERGILLUS FUMIGATUS Negative (Negative); ASPERGILLUS NIGER Negative (Negative); BLASTOMYCES ANTIBODY Negative (Negative); COCCIDIODES ANTIBODY Negative (Negative); CRYPTOCOCCAL AB <1:2 (()); CRYPTOCOCCAL AG SCREEN SOURCE Serum (()); CRYPTOCOCCAL SCREEN Not Detected (Not Detected); HISTOPLASMA AB Negative (Negative)
[2016-12-21] MEDS ORDERED: PREDNISONE2.5 MG PO (22:04)
[2016-12-21] MEDS ORDERED: ALBUTEROL20 ml INH (22:06)
[2016-12-21] MEDS ORDERED: AMLODIPINE BESYL5 MG PO (22:07)
[2016-12-21] MEDS ORDERED: SYNTHROID0.05 MG PO (22:08)
[2016-12-21] MEDS ORDERED: FERROUS GLUCON324 M1 PO (22:10)
[2016-12-21] MEDS ORDERED: FOLIC ACID1 MG PO (22:10)
[2016-12-21] MEDS ORDERED: FUROSEMIDE40 MG PO (22:11)
[2016-12-21] MEDS ORDERED: WARFARIN SODIUM3 M1 PO (22:11)
[2016-12-21] MEDS ORDERED: HYDRALAZINE HCL50 MG PO (22:12)
[2016-12-21] MEDS ORDERED: PROTONIX PO (22:12)
[2016-12-21] MEDS ORDERED: COMPAZINE5 M2 PO (22:13)
[2016-12-21] MEDS ORDERED: FLUOXETINE HCL20 M1 PO (22:14)
[2016-12-21] MEDS ORDERED: POLYETHYLENE G500 G1 PO (22:18)
[2016-12-21] MEDS ORDERED: BENADRYL ALLERG25 M1 PO (22:19)
[2016-12-21] MEDS ORDERED: PHENERGAN25 M1 PO (22:20)
[2016-12-21] MEDS ORDERED: OXYCODONE HCL15 MG PO (22:22)
[2016-12-21] MEDS ORDERED: FENTANYL1 EAC1 TOP (22:27)
[2016-12-24] MEDS ORDERED: MAG-OX 400400 M1 PO (10:52)
[2016-12-24] MEDS ORDERED: PREDNISONE PO (10:52)
[2016-12-24] MEDS ORDERED: SPIRIVA18 MCG INH (10:54)
[2016-12-24] MEDS ORDERED: LOPRESSOR PO (10:56)
[2016-12-24] MEDS ORDERED: LEVAQUIN750 MG PO (10:57)
[2016-12-24] MEDS ORDERED: KCL PO (10:58)
[2017-01-08] MEDS ORDERED: PATIENT'S PHARMACY (11:18)
[2017-01-08] MEDS ORDERED: PROTONIX PO (11:18)
[2017-01-08] MEDS ORDERED: FOLIC ACID1 MG PO (11:18)
[2017-01-08] MEDS ORDERED: LASIX PO (11:18)
[2017-01-08] MEDS ORDERED: PHENERGAN25 MG PO (11:19)
[2017-01-08] MEDS ORDERED: SYNTHROID0.05 MG PO (11:19)
[2017-01-08] MEDS ORDERED: COUMADIN PO (11:19)
[2017-01-08] MEDS ORDERED: HYDRALAZINE HCL50 MG PO (11:20)
[2017-01-08] MEDS ORDERED: LOPRESSOR PO (11:20)
[2017-01-08] MEDS ORDERED: KCL PO (11:21)
[2017-01-08] MEDS ORDERED: MAG-OX 400400 M1 PO (11:21)
[2017-01-08] MEDS ORDERED: ONDANSETRON ODT4 MG PO (11:21)
[2017-01-08] MEDS ORDERED: NORVASC PO (11:21)
[2017-01-08] MEDS ORDERED: SOTALOL AF80 M1 PO (11:22)
[2017-01-08] MEDS ORDERED: VALIUM10 M1 PO (11:22)
[2017-01-08] MEDS ORDERED: PREDNISONE (11:22)
[2017-01-08] MEDS ORDERED: PROZAC10 MG PO (11:22)
[2017-01-08] MEDS ORDERED: DURAGESIC1 EAC1 TOP (11:23)
[2017-01-08] MEDS ORDERED: BENADRYL25 M1 PO (11:23)
== END 2016-11-15 17:27 | DRG 314 ==
LOC: UNDOADMOB 12:22 → C3A PCU 12:22 → UNDOADMIN 13:36 → C3A PCU 13:36 → UNDOADMOB 13:43 → C3A PCU 13:43 → UNDOADMOB 11-09 13:43 → C3A PCU 11-09 13:43
PROVIDERS: Internal Medicine; Internal Medicine Hematology & Oncology; Nurse Practitioner Family; Surgery
PROC: 0DJ08ZZ Inspection of Upper Intestinal Tract, Via Natural or Artificial Opening Endoscopic (ICD-10-PCS; 2016-11-08)
PROC: 30233N1 Transfusion of Nonautologous Red Blood Cells into Peripheral Vein, Percutaneous Approach (ICD-10-PCS; 2016-11-08)
PROC: 05H533Z Insertion of Infusion Device into Right Subclavian Vein, Percutaneous Approach (ICD-10-PCS; 2016-11-12)
PROC: B546ZZA Ultrasonography of Right Subclavian Vein, Guidance (ICD-10-PCS; 2016-11-12)
PROC: B24BYZZ Ultrasonography of Heart with Aorta using Other Contrast (ICD-10-PCS; 2016-11-12)
PROC: 0JPT0XZ Removal of Tunneled Vascular Access Device from Trunk Subcutaneous Tissue and Fascia, Open Approach (ICD-10-PCS; principal; 2016-11-13 11:00)
PROC: 05H533Z Insertion of Infusion Device into Right Subclavian Vein, Percutaneous Approach (ICD-10-PCS; 2016-11-13 11:00)
DX: T80.211A Bloodstream infection due to central venous catheter, initial encounter (principal); A41.81 Sepsis due to Enterococcus; A41.02 Sepsis due to Methicillin resistant Staphylococcus aureus; J96.21 Acute and chronic respiratory failure with hypoxia; J18.9 Pneumonia, unspecified organism; C34.90 Malignant neoplasm of unspecified part of unspecified bronchus or lung; C79.31 Secondary malignant neoplasm of brain; J44.0 Chronic obstructive pulmonary disease with (acute) lower respiratory infection; K92.2 Gastrointestinal hemorrhage, unspecified; J44.1 Chronic obstructive pulmonary disease with (acute) exacerbation; D62 Acute posthemorrhagic anemia; E87.1 Hypo-osmolality and hyponatremia; I10 Essential (primary) hypertension; Z90.49 Acquired absence of other specified parts of digestive tract; Z90.710 Acquired absence of both cervix and uterus; Z87.891 Personal history of nicotine dependence; E11.65 Type 2 diabetes mellitus with hyperglycemia; Z79.84 Long term (current) use of oral hypoglycemic drugs; Z95.2 Presence of prosthetic heart valve; K25.9 Gastric ulcer, unspecified as acute or chronic, without hemorrhage or perforation; K29.70 Gastritis, unspecified, without bleeding; K21.0 Gastro-esophageal reflux disease with esophagitis; I48.0 Paroxysmal atrial fibrillation; Z79.01 Long term (current) use of anticoagulants; I45.10 Unspecified right bundle-branch block; E03.9 Hypothyroidism, unspecified; D69.6 Thrombocytopenia, unspecified
CPT/HCPCS: 36600; 70460; 71010; 71020; 71250; 76000; 77001; 80048; 80053; 80202; 82728; 82803; 82947; 83036; 83540; 83550; 84132; 84443; 85014; 85018; 85027; 85610; 85730; 86606; 86612; 86631; 86677; 86698; 86850; 86900; 86901; 86923; 87040; 87070; 87077; 87186; 92526; 92610; 93005; 93306; 94640; 94664; 94760; 97110; 97116; 97162; 97530; C1894; C9113; G8978-GP; G8979-GP; G8980-GP; G8996-GN; G8997-GN; G8998-GN; J0692; J0878; J1580; J1642; J1644; J1650; J1720; J2250; J2405; J2543; J3010; J3370; P9016; Q9967

== ENCOUNTER 2016-11-29 21:10 | Inpatient (IN) | payer OTHER ==
[~2016-11-29] VITALS: Ht 152.4 cm; Wt 62.8 kg
--- NOTE | ~2016-11-29 | DS ---
Unit #: [id number] #: [id number] Patient: VIBHA PRESTON [id number] [address] [address] [id number] I MR#: [id number] NAME: VIBHA PRESTON ROOM: 311 Age: 61 Sex: F Admission Date: 11/30/2016 : 1955 Discharge Date: 12/04/2016 Attending Physician: Tyra Meraz M.D. Primary Care Physician: Cookie Chao M.D. DISCHARGE SUMMARY PRIMARY ONCOLOGIST Dr. Chang. PRINCIPAL DIAGNOSES 1. Fever x1 with unknown source. 2. Recent history of enterococcus and methicillin-resistant Staphylococcus aureus bacteremia, resolved. 3. Supratherapeutic international normalized ratio. 4. Chronic hypercapnic hypoxic respiratory failure, maintained on 2 L of oxygen per nasal cannula continuously. 5. Severe pulmonary hypertension. 6. Htmuoufn-yf-nxietu tricuspid regurgitation. 7. Stage IV right upper lobe nonsmall cell lung cancer with metastases to the brain, currently undergoing radiation and chemotherapy. 8. History of mechanical mitral valve. 9. Diabetes mellitus type 2. 10. Paroxysmal atrial fibrillation, currently maintained in normal sinus rhythm. 11. Hypothyroidism. 12. Chronic obstructive pulmonary disease with mild acute exacerbation. 13. Coronary artery disease. 14. Iron-deficiency anemia. 15. Recent history of gastrointestinal bleed. 16. Mild protein malnutrition. 17. Chronic immunosuppression secondary to chronic steroid therapy. CONSULTANTS 1. Dr. Morales, Cardiology. 2. Dr. Montiel, Pulmonology. 3. Dr. Angeles, Infectious Disease. PROCEDURES 1. MICHOACANO on December 04, 2016, with ejection fraction of 50%. A mechanical mitral valve with no evidence of vegetation, iren-lg-ekjarqjm mitral regurgitation, and rdvzsiva-xe-qeymko tricuspid regurgitation noted. No evidence of vegetation. 2. Chest x-ray on November 29, 2016, with abnormal right upper lobe opacity. CLINICAL HISTORY AND HOSPITAL COURSE Ms. Preston is a 61-year-old female discharged from this facility November 15 after presenting with MRSA and enterococcal bacteremia, which was treated with IV vancomycin. Patient returned due to a documented fever at home. She was afebrile in the emergency department. Unit #: [id number] #: [id number] Patient: VIBHA PRESTON There were concerns that perhaps patient's bacteremia was recurrent and/or perhaps she had underlying endocarditis given the identification of the organisms during last hospitalization. She was subsequently admitted. Dr. Angeles and Dr. Morales were ultimately consulted. Patient was started on empiric Zosyn and vancomycin. Fortunately, blood cultures remained negative. Urinalysis, chest x-ray were also unremarkable and patient had no documented fever the entire hospitalization. Unfortunately, patient's INR continued to climb and ultimately she required a single dose of vitamin K for reversal. When INR was down, she subsequently underwent MICHOACANO which fortunately did not reveal any vegetation. Antibiotics have been discontinued and the plan is to discharge patient home later today. Patient did complain of some wheezing and was seen in consultation by Dr. Montiel who started her on some IV steroids. She has had minimal wheezing with the exception of this morning. I am awaiting dosing of prednisone and nebulizer treatments but assuming wheezing and improves, she can be discharged home later today. Her oxygenation is at baseline at 98% on 2 L. Patient will follow up with Dr. Chang as previously arranged. DISCHARGE CONDITION Stable. DISCHARGE STATUS Discharge to home. DISCHARGE MEDICATIONS 1. Coumadin 3 mg p.o. daily. Goal INR is 2.5 to 3.5. 2. DuoNeb nebulizer treatments one every six hours p.r.n. for shortness of breath. 3. Prednisone 10 mg tablets four tablets for three days, then three tablets for three days, then two tablets for three days, then one tablet for three days, then discontinue. Upon discontinuation of taper, patient will resume 5 mg in the morning and 2.5 mg of prednisone at bedtime. 4. Ferrous gluconate 325 mg daily with one refill. 5. Hydralazine 50 mg p.o. t.i.d. 6. Norvasc 5 mg b.i.d. 7. Budesonide 0.5 mg per 2 mL inhaled twice daily. 8. Tylenol 650 mg p.o. q.4 hours p.r.n. for pain. 9. Spiriva 18 mcg one puff daily. 10. Prozac 20 mg daily. 11. Zofran 4 mg p.o. q.4 hours p.r.n. for nausea. 12. Benadryl 25 mg p.o. b.i.d. p.r.n. for itching. 13. Compazine 5 mg p.o. q.6 hours p.r.n. for nausea. 14. Xanax 1 mg p.o. t.i.d. p.r.n. for anxiety. 15. Brovana 15 mcg inhaled b.i.d. 16. Sotalol 80 mg b.i.d. 17. MiraLax 17 g p.o. b.i.d. 18. Lasix 20 mg daily. 19. Oxycodone 15 mg p.o. q.4 hours p.r.n. for pain. 20. Protonix 40 mg daily. 21. Levothyroxine 50 mcg p.o. daily. 22. Folic acid 1 mg daily. DISCHARGE INSTRUCTIONS 1. The patient was instructed to follow a heart healthy diet. Unit #: [id number] #: [id number] Patient: VIBHA PRESTON 2. She is to wear oxygen at 2 L at all times to maintain saturations greater than or equal to 90%. 3. She can increase her activity as tolerated. 4. To continue to refrain from any further tobacco use. FOLLOWUP 1. Patient needs followup INR done on December 06, 2016, again with goal INR 2.5 to 3.5. 2. Patient will follow up with Dr. Chang later this week. 3. Patient should follow up with Dr. Morales on January 14 at 3 p.m. Time spent on discharge, 33 minutes. Dictated by... Tyra Meraz M.D. PAIGE/chuy TD: 12/05/2016 12:30 JOB #: [id number] DISCHARGE SUMMARY Page 1 of 1 X Tyra Meraz MD DISCHARGE SUMMARY
--- NOTE | ~2016-11-29 | CR63 ---
[facility] A Service of [facility] & [facility] RADIOLOGY TEXT RESULTS PATIENT: VIBHA PRESTON LOCATION: [facility] : 59 UNIT #: [id number] AGE: [address]: João Hester MD SEX: F ORDER DR: [id number] [facility] [address] [facility] [facility]. [place], [place] [address] [id number] MR#: [id number] Acc #: [id number] NAME: VIBHA PRESTON : 1955 SEX: F STUDY DATE/TIME: 11/30/2016 13:19 [facility] ROOM: [facility] STUDY DESCRIPTION: CR Chest 2 View Attending Physician: João Hester M.D. Ordering Physician: Eloy Angeles M.D. Primary Care Physician: Cookie Chao M.D. MEDICAL IMAGING REPORT This report is preliminary unless electronic signature is present EXAM AP and lateral radiographs of the chest HISTORY Fever. Evaluate for endocarditis today. TECHNIQUE PA and lateral radiographs of the chest are presented. COMPARISON STUDIES 11/29/2016, 11/13/2016. CT examination 11/09/2016. FINDINGS Status post median sternotomy, CABG and mitral valve replacement. Stable cardiac enlargement. Lungs are moderately well-inflated. The left lung is clear. Continued ill-defined densities in the right upper lobe are favored to reflect patient's known pulmonary malignancy. No new suspicious densities. No pleural effusion. No pneumothorax. Patient's history says evaluate for endocarditis. Presence or absence of endocarditis cannot be determined on the basis of plain chest radiograph. Prior cholecystectomy. Dictated by... Vishal Randle M.D. THIS IS AN ELECTRONICALLY VERIFIED REPORT Vishal Randle M.D. at 12/01/2016 9:44 PM EZEQUIEL/claritza [facility] A Service of [facility] & [facility] RADIOLOGY TEXT RESULTS PATIENT: VIBHA PRESTON LOCATION: [facility] : 59 UNIT #: [id number] AGE: [address]: João Hester MD SEX: F ORDER DR: TD: 11/30/2016 21:49 JOB #: [id number] MEDICAL IMAGING REPORT Page 1 of 1 COPY
--- NOTE | ~2016-11-29 | CO ---
Unit #: [id number] #: [id number] Patient: LATOYA PRESTNO [id number] [address] [address] [id number] I MR#: [id number] NAME: LATOYA PRESTON ROOM: 311 Age: 61 Sex: F Admission Date: 11/30/2016 : 1955 Attending Physician: Tyra Meraz M.D. Primary Care Physician: Cookie Chao M.D. Consultation Date: 12/02/2016 CONSULTATION REPORT REASON FOR CONSULTATION Anemia. HISTORY OF PRESENTING ILLNESS Ms. Latoya Preston is a 61-year-old lady, was admitted with fever. She has multiple medical problems including non-small lung cancer, and mitral valve mechanical prosthesis. She is being evaluated for the same at this time. She was also noted to have severe anemia and I was consulted. The patient states she has no nausea, vomiting, or hematemesis. She has no abdominal pain. She has no black stool or bright red blood in the stool. She was admitted recently about a month ago or so, where she had an EGD done for anemia workup, multiple small gastric ulcers were seen. She was Helicobacter pylori negative. She is on PPI's. PAST MEDICAL HISTORY 1. Significant for known small-cell lung cancer, undergoing chemo and radiation with Dr. Chang, status post mitral valve mechanical prosthesis. 2. Hypothyroidism. 3. History of MRSA bacteremia. 4. She is status post cholecystectomy. 5. History of paroxysmal atrial fibrillation. ALLERGIES None. MEDICATIONS At home include Coumadin, Protonix, Synthroid, Lasix, folic acid, prednisone, Prozac, sotalol, Benadryl, oxycodone, Xanax, Phenergan, Compazine, and Zofran. FAMILY HISTORY Diabetes and congestive heart failure. SOCIAL HISTORY Ex-smoker. Denies drug or alcohol use. REVIEW OF SYSTEMS Complete 10-point review of systems was done, positives have been explained above. All the other systems were negative. PHYSICAL EXAMINATION Unit #: [id number] #: [id number] Patient: LATOYA PRESTON VITAL SIGNS: Stable, temperature 99.7, pulse 100, respirations 14, blood pressure 150/70. HEENT: Pupils are equal and reactive. Sclerae anicteric. Oral mucosa moist. NECK: No JVD. No lymphadenopathy. CHEST: A few scattered rhonchi. CARDIOVASCULAR: Regular rate rhythm. No murmurs. ABDOMEN: Soft, nontender, and nondistended. EXTREMITIES: Without clubbing, cyanosis, or edema. NEUROLOGICAL: Intact. SKIN: Warm and dry. DIAGNOSTIC STUDIES LABORATORY RESULTS: Chemistries show normal BUN and creatinine. Normal LFTs. Iron level of 36 borderline. Transferrin saturation low at 15. Ferritin level is more than 1500, most likely as an acute phase reactant. CRP is elevated also. INR of 5.3. CBC with a hemoglobin this morning of 7.5, was 9.6 on arrival. Normal white count and platelet counts. ASSESSMENT AND PLAN The patient with severe anemia. She is on blood thinners with an INR of 5.3 today. Multiple small gastric ulcers could be contributing to some oozing of the blood from the same. We will continue with PPI therapy. She has never had a colonoscopy for evaluation. I would recommend colonoscopy at some point, when stable, so we can stop the blood thinners and plan on doing that. She could easily have anemia also from the chemotherapy as well as malignancy. At this point, we will continue to watch H and H as transfuse. Once she is stable and febrile illness, we will plan on doing colonoscopy after discussing with Dr. Chang. Thank you Dr. Perez for this interesting consult. We will follow along. Dictated by... Reynaldo Torres/shyla TD: 12/03/2016 02:13 JOB #: [id number] CONSULTATION REPORT Page 1 of 1 X Eric Ordoñez MD X CONSULTATION REPORT
--- NOTE | ~2016-11-29 | HP ---
Unit #: [id number] #: [id number] Patient: VIBHA PRESTON [id number] [facility] [place] [address]. [place], [place] [address] [id number] MR#: [id number] NAME: VIBHA PRESTON ROOM: 12559 Age: 61 Sex: F Admission Date: 11/30/2016 : 1955 Attending Physician: Vanessa Ledesma M.D. Primary Care Physician: Cookie Chao M.D. HISTORY AND PHYSICAL CHIEF COMPLAINT Fever. HISTORY This very pleasant 61-year-old female status post mitral valve replacement, non-small cell lung cancer, hypothyroidism, is admitted for fever. The patient was most recently admitted to this facility 11/08 through 11/15/2016. She was admitted directly from Dr. Chang's office for anemia. Underwent endoscopy, was found to have peptic ulcer disease, and is anticoagulated. During her hospitalization, she developed a fever, and blood cultures were positive for MRSA and Enterococcus. The fever was thought to be related to healthcare-associated pneumonia. The patient's Aron-Cath was removed. Cultures of the tip were negative. Her followup blood cultures were also negative. She was seen in consultation by Dr. Morales given her mitral valve replacement and echo, I believe, was performed although I do not have results. After her discharge on 11/15/2016, she was transferred to [facility] to finish a course of vancomycin. She finished the IV vancomycin 11/27/2016. She went home a few days ago, was well until yesterday when she developed fatigue and fevers up to 103 degrees. She was brought to this facility late last evening, was bolused with IV fluids, given vancomycin, Zosyn and tobramycin. Currently is feeling improved after the Tylenol. She has a chronic cough which she states is improved, productive of whitish sputum. She denies increasing shortness of breath or pruritic chest pain. Denies diarrhea or urinary symptoms. Chest x-ray shows patient's persistent right upper lobe opacity unchanged. On examination, she has crisp prosthetic valve sounds, and no splinter hemorrhages noted over the nail beds. PAST MEDICAL HISTORY 1. Non-small cell lung cancer diagnosed 07/2016 in the right upper lobe extending into the right mainstem bronchus associated with mets to the brain. The patient is status post chemotherapy and XRT. 2. Status post mechanical mitral valve replacement for which the patient is anticoagulated. 3. Hypothyroidism. 4. Diet controlled AODM. 5. Peptic ulcer disease with GI bleed, admitted in October. 6. MRSA and enterococcus bacteremia thought to be related to healthcare-associated pneumonia, admitted in October. Patient's Mediport was removed and the tip cultured negative. 7. Nonobstructive coronary artery disease. Unit #: [id number] #: [id number] Patient: VIBHA PRESTON 8. Cholecystectomy. 9. MARINA and BSO. 10. Paroxysmal atrial fibrillation. ALLERGIES No known drug allergies. HOME MEDICATIONS 1. Coumadin. 2. Albuterol mini nebs q.4 hours. 3. Protonix 40 mg daily. 4. Synthroid 0.05 mg daily. Patient finished a course of vancomycin 11/27/2016. 5. Folic acid 1 mg daily. 6. Lasix 20 mg daily. 7. Prednisone 5 mg in the morning and 2.5 mg in the evening. 8. Spiriva, one puff daily. 9. Prozac 20 mg daily. 10. Brovana nebulizer b.i.d. 11. Sotalol 80 mg b.i.d. 12. MiraLAX daily. 13. Pulmicort, one nebulizer b.i.d. 14. P.r.n. Tylenol. 15. Zofran. 16. Benadryl. 17. Oxycodone. 18. Xanax. 19. Phenergan. 20. Compazine. 21. Zofran. FAMILY HISTORY Diabetes, malignancy, congestive heart failure. SOCIAL HISTORY The patient lives with her brother but plans to live with her daughter. She stopped smoking eight years ago, does not drink alcohol. REVIEW OF SYSTEMS Notable for fatigue, fever, chronic cough, mitral valve replacement, diabetes, hypothyroidism, lung cancer with metastatic disease, COPD, peptic ulcer disease and above mentioned surgeries. All other systems were reviewed and otherwise negative. PHYSICAL EXAMINATION GENERAL: Pleasant 61-year-old female, currently in no acute distress. VITAL SIGNS: Temperature 99.7, pulse 100, respirations 14, blood pressure 152/71. O2 saturation is 96% 2 L of oxygen. HEENT: Eyes PERRLA. Extraocular muscles are intact. Pharynx is benign. NECK: Supple without adenopathy or thyromegaly. CHEST: Actually fairly clear. CARDIAC: Normal S1 and S2 with crisp prosthetic valve sounds. ABDOMEN: Bowel sounds are present. No hepatosplenomegaly, tenderness or masses. EXTREMITIES: Without edema. Pedal pulses are present. No splinter hemorrhages noted over the nail beds. NEUROLOGIC EXAM: The patient is awake, alert, oriented. Cranial nerves are intact. Equal strength throughout. Unit #: [id number] #: [id number] Patient: VIBHA PRESTON DIAGNOSTIC STUDIES LABORATORY: Admission labs - hematocrit is 28.8 which is improved. White blood count 11.5, normal platelet count. SMA-12 - glucose 158, sodium 129, potassium 3.2, chloride is 88, albumin is 3. BNP 134. Normal lactic acid. Urine - 1+ protein. IMAGING: Chest x-ray - persistent right upper lobe opacity, unchanged. ASSESSMENT 1. Recurrent fever in this patient who just completed a course of vancomycin for MRSA and Enterococcus bacteremia which was thought to be due to hospital-acquired pneumonia. Of concern, the patient is status post mechanical mitral valve replacement. 2. Non-small cell lung cancer with mets to brain, status post chemotherapy and radiation. 3. Status post mitral valve replacement, anticoagulated with a therapeutic INR of 2.7. Rule out bacterial endocarditis. 4. COPD. 5. Diet controlled AODM. 6. Hypothyroidism. 7. Peptic ulcer disease. PLANS 1. Vancomycin, cefepime, one dose of tobramycin. 2. IV fluids, hold Lasix. 3. Replace potassium. 4. Obtain daily PT and INR. 5. Will ask infectious disease and cardiology to see and will notify Dr. Chang of admission. 6. Will obtain EKG given history of paroxysmal atrial fibrillation. Patient currently appears to be in a sinus rhythm. Dictated by Reynaldo Miller/nicanor TD: 11/30/2016 05:04 JOB #: [id number] Unit #: [id number] #: [id number] Patient: VIBHA PRESTON HISTORY AND PHYSICAL Page 1 of 1 X Vanessa Ledesma MD HISTORY AND PHYSICAL
--- NOTE | ~2016-11-29 | CR72 ---
[facility] A Service of [facility] RADIOLOGY TEXT RESULTS PATIENT: VIBHA PRESTON LOCATION: A 311-01 : [birth year] UNIT #: [id number] AGE: [address]: João Hester MD SEX: F ORDER DR: [id number] [facility] [address] [place], [place] [address] [id number] I MR#: [id number] Acc #: [id number] NAME: VIBHA PRESTON : 1955 SEX: F STUDY DATE/TIME: 11/29/2016 23:21 [facility]: [facility] STUDY DESCRIPTION: CR Chest Single View Portable Attending Physician: João Hester M.D. Ordering Physician: Tina Flores M.D. Primary Care Physician: Cookie Chao M.D. MEDICAL IMAGING REPORT This report is preliminary unless electronic signature is present EXAM Portable chest, 11/29 at 23:21 hours INDICATION Fever, cough, congestion, wheezing tonight. History of right side lung cancer. FINDINGS AP portable chest is compared with 11/13/2016. Heart size stable status post valve repair. The left lung is clear. There is continued abnormal parenchymal density in the right upper lobe presumably related to lung cancer. No pneumothorax is seen. There is continued elevation of the right hemidiaphragm. IMPRESSION Persistent abnormal right upper lobe opacity presumably related to the patient's lung cancer. Chest x-ray is otherwise negative and unchanged. Dictated by... Kaden Oropeza Jr., M.D. THIS IS AN ELECTRONICALLY VERIFIED REPORT Kaden Oropeza Jr., M.D. at 12/03/2016 5:50 AM DANNIELLE/bertha TD: 11/30/2016 10:24 JOB #: [id number] MEDICAL IMAGING REPORT Page 1 of 1 COPY
--- NOTE | ~2016-11-29 | EKG ---
PATIENT: VIBHA PRESTON UNIT #: [id number] Ventricular Rate: 84 BPM Atrial Rate: 84 BPM P-R Interval: 224 ms QRS Duration: 156 ms Q-T Interval: 478 ms QTC Calculation(Bezet): 564 ms P [place]: 53 degrees Calculated R [place]: 107 degrees Calculated T [place]: 19 degrees Diagnosis Line: Sinus rhythm with 1st degree A-V block Diagnosis Line: Right bundle branch block Diagnosis Line: Abnormal ECG Diagnosis Line: When compared with ECG of 09-NOV-2016 10:36, Diagnosis Line: Sinus rhythm has replaced Ectopic atrial rhythm Diagnosis Line: T wave inversion no longer evident in Inferior Diagnosis Line: leads Diagnosis Line: Confirmed by NINA GAMBLE MD ([id number]) on 11/30/2016 Diagnosis Line: 4:59:49 PM INTERPRETING MD: MAVIS EATON
--- NOTE | ~2016-11-29 | A ---
[facility] Nutrition Therapy DATE: 11/30/16 Patient: VIBHA PRESTON Physician: VIRGIL Address: [address] Room/Bed: [address] [place] [address], Zip: [place] [address] Admit Date: 11/30/16 Date of : [birth year] Height: 5 0 Weight: 123 55.8 NUTRITIONAL ASSESSMENT: REASON: 3 NUTRITION RISK PT RE: WEIGHT LOSS PT IS 61 Y.O. FEMALE ADMITTED FOR FEVER R/O ENDOCARDITIS PMH: NON-SMALL CELL LUNG CANCER W/METS TO BRAIN S/P CHEMOTHERAPY & RADIATION, COPD, HYPOTHYROIDISM, PUD, DM, GI BLEED, HTN, CAD, AFIB Anthropometrics: 5'0", WT: 124# (56.3 KG), BMI: 24.2 Labs: GLU: 158, K+:3.2, NA+:129, ALB: 3.0, A1c: 5.7 (11/09/16), GFR: 41.0 Meds: SYNTHROID, COUMADIN, PREDNISONE, PROTONIX, MIRALAX, ZOFRAN, LAXATIVE, NACL I/O & Bowel function: -/1 Skin Integrity: NO KNOWN SKIN ISSUES Estimated Nutrition Needs: INCREASED NEEDS 2' CANCER, CURRENT CLINICAL CONDITION, DECREASED PO INTAKE/APPETITE, WEIGHT LOSS NOTED Assessment: CHART REVIEWED AND EVENTS NOTED. PT SEEN FOR 3 NUTRITION RISK PT RE: WEIGHT LOSS. PT CONFIRMS DECREASED PO INTAKE 2' DECREASED APPETITE "ON AND OFF" PAST SEVERAL MONTHS FROM SIDE EFFECTS OF CHEMO & RADIATION. PT REPORTS SOME N/V/D PAST SEVERAL DAYS. PT REPORTS UBW IS ~150#/NOTES LOSING WEIGHT WITHIN PAST YEAR (~25# WEIGHT LOSS). THIS RD ENCOURAGED SMALL FREQUENT MEALS + SUPPLEMENT INTAKE, PT AGREED TO MAGIC CUP BID W/MEALS (DID NOT WANT SHAKES, PUDDING OR JUICE). RD PROVIDED WRITTEN DIET EDUCATION (WAYS TO MANAGE N/V/D) FOR PT. PT DEMONSTRATED UNDERSTANDING OF THE TOPIC. PT REPORTED NO DIET QUESTIONS AT THIS VISIT. RD TO FOLLOW/REMAIN AVAILABLE. Dx: INADEQUATE PROTEIN-ENERGY INTAKE R/T PMH-CANCER, DECREASED APPETITE AEB PT REPORT ABOVE, ~25# WEIGHT LOSS NOTED WITHIN PAST YEAR. Intervention: 1. CONSISTENT CARBOHYDRATE DIET 2. MAGIC CUP BID W/MEALS 3. WRITTEN HOME DIET EDUCATION Monitoring, Evaluation and Goals: 1. ORAL INTAKE; CONSUME/TOLERATE >50% OF MEALS AND SUPPLEMENTS 2. WEIGHTS; PREVENT FURTHER WEIGHT LOSS [facility] Nutrition Therapy DATE: 11/30/16 Patient: VIBHA PRESTON Physician: VIRGIL Address: [facility] [address] Room/Bed: [address] [place] [address], Zip: [place] [address] Admit Date: 11/30/16 Date of : [birth year] Height: 5 0 Weight: 123 55.8 3. LABS; WNL: GLU, K+, NA+ MONITOR: -PO INTAKE/APPETITE -WEIGHTS -SUPPLEMENT INTAKE Recommendations: 1. PLEASE ORDER SHANTAL MAGIC CUP BID W/MEALS FOR SUPPLEMENTAL NUTRITION 2. CONSIDER CHANGING CURRENT DIET ORDER TO REGULAR + 6 SMALL MEALS TO BETTER FACILITATE PO INTAKE 3. APPRECIATE FAMILY AND STAFF TO ENCOURAGE ADEQUATE PO INTAKE 4. REPLACE LYTES PRN (K+ LOW) RD WILL F/U PER PROTOCOL PT IS MODERATELY COMPROMISED Respectfully, ADELSO MCKENZIE MS, RD, LD [employer] [facility] cc: client file
[2016-11-29 23:49] LABS: URINE SOURCE CLEAN CATCH
[2016-11-29 23:52] LABS: URINE APPEARANCE CLEAR; URINE BILIRUBIN NEG (NEG); URINE BLOOD NEG (NEG); URINE COLOR DK YELLOW; URINE GLUCOSE NEG (NEG); URINE KETONE NEG (NEG); URINE LEUKOCYTE ESTERASE NEG (NEG); URINE NITRATE NEG (NEG); URINE PROTEIN 1+ (NEG); URINE SPECIFIC GRAVITY 1.014 (1.003-1.035)
[2016-11-29 23:54] LABS: URBCS1 AUWI 0-2 /[HPF] (0-2); URINE BACTERIA AUWI NEG (NEGATIVE); URINE SQUAMOUS EPITHELIAL CELL NONE SEEN /[HPF]; UWBCS1 AUWI 0-2 (0-5)
[2016-11-29 23:57] LABS: CULTURE INDICATED? NO
[2016-11-30 00:21] LABS: BASOPHIL# 0.1 X10e3 (0-0.3); BASOPHIL% 0.8 % (0-2.5); EOSINOPHIL% 0.3 % (0.0-7.0); HEMATOCRIT 28.8 % (35.0-45.0); HEMOGLOBIN 9.6 gm/dL (12.0-16.0); LYMPHOCYTE% 8.8 % (17.0-45.0); MEAN CELL VOLUME 89.9 FL (83-96); MEAN CORPUSCULAR HEMOGLOBIN 29.9 PG (28-34); MEAN CORPUSCULAR HGB CONC 33.3 g/dL (30-36); MONOCYTE# 1.2 X10e3 (0-1.0); MONOCYTE% 10.3 % (3.0-12.0); NEUTROPHIL# 9.2 X10e3 (1.5-7.1); NEUTROPHIL% 79.8 % (40-75); PLATELET COUNT 287 X10e3 (140-420); RED CELL DISTRIBUTION WIDTH 21.2 % (11.0-15.5); WHITE BLOOD COUNT 11.5 X10e3 (4.0-10.5)
[2016-11-30 00:23] LABS: DIFF IND NO
[2016-11-30 00:35] LABS: INR 2.7; PROTHROMBIN TIME (PATIENT) 29.4 SECONDS (10.0-11.7)
[2016-11-30 00:37] LABS: PARTIAL THROMBOPLASTIN TIME 45.5 SECONDS (23.5-31.3)
[2016-11-30 00:44] LABS: BILIRUBIN, DIRECT 0.3 mg/dL (0.0-0.2); BILIRUBIN,INDIRECT 0.9 mg/dL (0.0-0.9); BILIRUBIN,TOTAL 1.2 mg/dL (0.2-2.0); BUN/CREATININE RATIO 10.71; CREATININE SERUM 1.4 mg/dL (0.6-1.4); POTASSIUM 3.2 mmol/L (3.5-5.1); PROTEIN TOTAL SERUM 8.3 g/dL (6.0-8.3)
[2016-11-30 00:49] LABS: POC - CKMB <1.0 ng/mL (0.0-7.9); POC - TROPONIN <0.05 ng/mL (<=0.05)
[2016-11-30] MEDS ORDERED: ALBUTEROL2.5 MG/3 M INH (03:21)
[2016-11-30] MEDS ORDERED: PANTOPRAZOLE SO40 MG PO (03:21)
[2016-11-30] MEDS ORDERED: LEVOTHYROXINE50 MCG PO (03:22)
[2016-11-30] MEDS ORDERED: SPIRIVA18 MCG INH (03:22)
[2016-11-30] MEDS ORDERED: PREDNISONE5 M1 PO (03:22)
[2016-11-30] MEDS ORDERED: LASIX20 MG PO (03:22)
[2016-11-30] MEDS ORDERED: FOLIC ACID1 MG PO (03:22)
[2016-11-30] MEDS ORDERED: BROVANA15 MCG/2 M INH (03:23)
[2016-11-30] MEDS ORDERED: FLUOXETINE HCL20 M1 PO (03:23)
[2016-11-30] MEDS ORDERED: SOTALOL AF80 M1 PO (03:23)
[2016-11-30] MEDS ORDERED: BUDESONIDE0.5 MG/2 M INH (03:24)
[2016-11-30] MEDS ORDERED: MIRALAX17 GM PO (03:24)
[2016-11-30] MEDS ORDERED: PREDNISONE2.5 MG PO (03:24)
[2016-11-30] MEDS ORDERED: TYL325 PO (03:25)
[2016-11-30] MEDS ORDERED: ZOFRAN PO (03:25)
[2016-11-30] MEDS ORDERED: DIPHENHYDRAMINE25 M1 PO (03:26)
[2016-11-30] MEDS ORDERED: PHENERGAN25 M1 PO (03:27)
[2016-11-30] MEDS ORDERED: XANAX1 MG PO (03:27)
[2016-11-30] MEDS ORDERED: OXYCODONE HCL15 MG PO (03:27)
[2016-11-30] MEDS ORDERED: COMPAZINE5 M1 PO (03:28)
[2016-11-30 12:50] LABS: HEMATOCRIT 24.2 % (35.0-45.0); HEMOGLOBIN 8.2 gm/dL (12.0-16.0); MEAN CELL VOLUME 89.8 FL (83-96); MEAN CORPUSCULAR HEMOGLOBIN 30.5 PG (28-34); MEAN PLATELET VOLUME 6.9 FL (6.5-11.5); RED BLOOD COUNT 2.69 X10e (3.90-5.30); RED CELL DISTRIBUTION WIDTH 21.1 % (11.0-15.5); WHITE BLOOD COUNT 7.3 X10e3 (4.0-10.5)
[2016-11-30 13:15] LABS: CALCIUM SERUM 8.1 mg/dL (8.4-10.2); GLOM FILT RATE Estimated 61.6 mL/min (>60); MAGNESIUM 1.4 mg/dL (1.6-3.0); POTASSIUM 3.2 mmol/L (3.5-5.1)
[2016-11-30 17:34] LABS: INR 3.5; PROTHROMBIN TIME (PATIENT) 38.4 SECONDS (10.0-11.7)
[2016-12-01 06:29] LABS: INR 3.8; PROTHROMBIN TIME (PATIENT) 41.7 SECONDS (10.0-11.7)
[2016-12-01 07:26] LABS: MAGNESIUM 1.9 mg/dL (1.6-3.0); POTASSIUM 3.7 mmol/L (3.5-5.1)
[2016-12-01 07:35] LABS: PROCALCITONIN 0.66 NG/ML
[2016-12-02 05:10] LABS: HEMATOCRIT 22.3 % (35.0-45.0); HEMOGLOBIN 7.5 gm/dL (12.0-16.0); MEAN CELL VOLUME 91.3 FL (83-96); MEAN CORPUSCULAR HEMOGLOBIN 30.7 PG (28-34); MEAN CORPUSCULAR HGB CONC 33.6 g/dL (30-36); MEAN PLATELET VOLUME 6.7 FL (6.5-11.5); RED BLOOD COUNT 2.44 X10e (3.90-5.30); RED CELL DISTRIBUTION WIDTH 21.6 % (11.0-15.5); WHITE BLOOD COUNT 5.6 X10e3 (4.0-10.5)
[2016-12-02 05:27] LABS: PROTHROMBIN TIME (PATIENT) 57.8 SECONDS (10.0-11.7)
[2016-12-02 05:36] LABS: INR 5.3
[2016-12-02 07:03] LABS: BUN/CREATININE RATIO 7.77; CALCIUM SERUM 8.3 mg/dL (8.4-10.2); CREATININE SERUM 0.9 mg/dL (0.6-1.4); POTASSIUM 3.7 mmol/L (3.5-5.1)
[2016-12-02 07:07] LABS: MAGNESIUM 2.1 mg/dL (1.6-3.0); POTASSIUM 3.7 mmol/L (3.5-5.1)
[2016-12-02 12:24] LABS: HEMATOCRIT 24.1 % (35.0-45.0); HEMOGLOBIN 8.2 gm/dL (12.0-16.0); MEAN CELL VOLUME 91.2 FL (83-96); MEAN PLATELET VOLUME 6.7 FL (6.5-11.5); RED BLOOD COUNT 2.65 X10e (3.90-5.30); WHITE BLOOD COUNT 6.2 X10e3 (4.0-10.5)
[2016-12-03 05:54] LABS: HEMATOCRIT 22.4 % (35.0-45.0); HEMOGLOBIN 7.6 gm/dL (12.0-16.0); MEAN CELL VOLUME 91.5 FL (83-96); MEAN CORPUSCULAR HEMOGLOBIN 31.1 PG (28-34); RED BLOOD COUNT 2.44 X10e (3.90-5.30); RED CELL DISTRIBUTION WIDTH 20.9 % (11.0-15.5)
[2016-12-03 06:22] LABS: BUN/CREATININE RATIO 8.57; CALCIUM SERUM 8.1 mg/dL (8.4-10.2); CREATININE SERUM 0.7 mg/dL (0.6-1.4); GLOM FILT RATE Estimated 94.8 mL/min (>60); MAGNESIUM 1.8 mg/dL (1.6-3.0); POTASSIUM 4.6 mmol/L (3.5-5.1)
[2016-12-03 06:42] LABS: PROTHROMBIN TIME (PATIENT) 67.2 SECONDS (10.0-11.7)
[2016-12-03 06:43] LABS: INR 6.2
[2016-12-04 02:35] LABS: HEMATOCRIT 22.9 % (35.0-45.0); HEMOGLOBIN 7.7 gm/dL (12.0-16.0); MEAN CELL VOLUME 91.9 FL (83-96); MEAN CORPUSCULAR HEMOGLOBIN 30.9 PG (28-34); MEAN CORPUSCULAR HGB CONC 33.6 g/dL (30-36); MEAN PLATELET VOLUME 6.8 FL (6.5-11.5); RED BLOOD COUNT 2.49 X10e (3.90-5.30); RED CELL DISTRIBUTION WIDTH 21.4 % (11.0-15.5); WHITE BLOOD COUNT 5.9 X10e3 (4.0-10.5)
[2016-12-04 02:45] LABS: INR 3.4; PROTHROMBIN TIME (PATIENT) 37.5 SECONDS (10.0-11.7)
[2016-12-04] MEDS ORDERED: PREDNISONE (13:11)
[2016-12-04] MEDS ORDERED: NORVASC PO (13:12)
[2016-12-04] MEDS ORDERED: FERROUS GLUCON324 M1 PO (13:12)
[2016-12-04] MEDS ORDERED: COUMADIN PO (13:13)
[2016-12-04] MEDS ORDERED: DUONEB INH (13:14)
[2016-12-04] MEDS ORDERED: HYDRALAZINE HCL50 MG PO (13:20)
[2016-12-21] MEDS ORDERED: PREDNISONE2.5 MG PO (22:04)
[2016-12-21] MEDS ORDERED: ALBUTEROL20 ml INH (22:06)
[2016-12-21] MEDS ORDERED: AMLODIPINE BESYL5 MG PO (22:07)
[2016-12-21] MEDS ORDERED: SYNTHROID0.05 MG PO (22:08)
[2016-12-21] MEDS ORDERED: FERROUS GLUCON324 M1 PO (22:10)
[2016-12-21] MEDS ORDERED: FOLIC ACID1 MG PO (22:10)
[2016-12-21] MEDS ORDERED: WARFARIN SODIUM3 M1 PO (22:11)
[2016-12-21] MEDS ORDERED: FUROSEMIDE40 MG PO (22:11)
[2016-12-21] MEDS ORDERED: HYDRALAZINE HCL50 MG PO (22:12)
[2016-12-21] MEDS ORDERED: PROTONIX PO (22:12)
[2016-12-21] MEDS ORDERED: COMPAZINE5 M2 PO (22:13)
[2016-12-21] MEDS ORDERED: FLUOXETINE HCL20 M1 PO (22:14)
[2016-12-21] MEDS ORDERED: POLYETHYLENE G500 G1 PO (22:18)
[2016-12-21] MEDS ORDERED: BENADRYL ALLERG25 M1 PO (22:19)
[2016-12-21] MEDS ORDERED: PHENERGAN25 M1 PO (22:20)
[2016-12-21] MEDS ORDERED: OXYCODONE HCL15 MG PO (22:22)
[2016-12-21] MEDS ORDERED: FENTANYL1 EAC1 TOP (22:27)
[2016-12-24] MEDS ORDERED: MAG-OX 400400 M1 PO (10:52)
[2016-12-24] MEDS ORDERED: PREDNISONE PO (10:52)
[2016-12-24] MEDS ORDERED: SPIRIVA18 MCG INH (10:54)
[2016-12-24] MEDS ORDERED: LOPRESSOR PO (10:56)
[2016-12-24] MEDS ORDERED: LEVAQUIN750 MG PO (10:57)
[2016-12-24] MEDS ORDERED: KCL PO (10:58)
[2017-01-08] MEDS ORDERED: FOLIC ACID1 MG PO (11:18)
[2017-01-08] MEDS ORDERED: PATIENT'S PHARMACY (11:18)
[2017-01-08] MEDS ORDERED: PROTONIX PO (11:18)
[2017-01-08] MEDS ORDERED: LASIX PO (11:18)
[2017-01-08] MEDS ORDERED: PHENERGAN25 MG PO (11:19)
[2017-01-08] MEDS ORDERED: SYNTHROID0.05 MG PO (11:19)
[2017-01-08] MEDS ORDERED: COUMADIN PO (11:19)
[2017-01-08] MEDS ORDERED: HYDRALAZINE HCL50 MG PO (11:20)
[2017-01-08] MEDS ORDERED: LOPRESSOR PO (11:20)
[2017-01-08] MEDS ORDERED: NORVASC PO (11:21)
[2017-01-08] MEDS ORDERED: ONDANSETRON ODT4 MG PO (11:21)
[2017-01-08] MEDS ORDERED: MAG-OX 400400 M1 PO (11:21)
[2017-01-08] MEDS ORDERED: KCL PO (11:21)
[2017-01-08] MEDS ORDERED: PREDNISONE (11:22)
[2017-01-08] MEDS ORDERED: SOTALOL AF80 M1 PO (11:22)
[2017-01-08] MEDS ORDERED: PROZAC10 MG PO (11:22)
[2017-01-08] MEDS ORDERED: VALIUM10 M1 PO (11:22)
[2017-01-08] MEDS ORDERED: DURAGESIC1 EAC1 TOP (11:23)
[2017-01-08] MEDS ORDERED: BENADRYL25 M1 PO (11:23)
== END 2016-12-04 20:21 | disposition home health service (06) | DRG 864 ==
LOC: CED 21:10 → CEDOF 11-30 04:00 → CED 11-30 04:00 → C3A PCU 11-30 04:10 → CEDOF 11-30 04:10 → C3A PCU 11-30 05:44 → CEDOF 11-30 05:44 → C3A PCU 11-30 07:45
PROVIDERS: Emergency Medicine; Internal Medicine; Internal Medicine Cardiovascular Disease; Internal Medicine Infectious Disease
PROC: 05HC33Z Insertion of Infusion Device into Left Basilic Vein, Percutaneous Approach (ICD-10-PCS; principal; 2016-12-04)
PROC: B24BZZ4 Ultrasonography of Heart with Aorta, Transesophageal (ICD-10-PCS; 2016-12-04)
DX: R50.9 Fever, unspecified (principal); J96.21 Acute and chronic respiratory failure with hypoxia; I27.2 Other secondary pulmonary hypertension; C79.31 Secondary malignant neoplasm of brain; C34.90 Malignant neoplasm of unspecified part of unspecified bronchus or lung; J44.1 Chronic obstructive pulmonary disease with (acute) exacerbation; E44.1 Mild protein-calorie malnutrition; I48.0 Paroxysmal atrial fibrillation; J96.22 Acute and chronic respiratory failure with hypercapnia; Z86.19 Personal history of other infectious and parasitic diseases; I08.1 Rheumatic disorders of both mitral and tricuspid valves; E11.9 Type 2 diabetes mellitus without complications; E03.9 Hypothyroidism, unspecified; D50.9 Iron deficiency anemia, unspecified; I25.10 Atherosclerotic heart disease of native coronary artery without angina pectoris; Z79.52 Long term (current) use of systemic steroids; Z68.24 Body mass index [BMI] 24.0-24.9, adult; Z95.2 Presence of prosthetic heart valve; Z90.49 Acquired absence of other specified parts of digestive tract; K27.9 Peptic ulcer, site unspecified, unspecified as acute or chronic, without hemorrhage or perforation; D63.8 Anemia in other chronic diseases classified elsewhere; I10 Essential (primary) hypertension; Z83.3 Family history of diabetes mellitus; Z82.49 Family history of ischemic heart disease and other diseases of the circulatory system; Z80.9 Family history of malignant neoplasm, unspecified
CPT/HCPCS: 36415; 51701; 71010; 71020; 80048; 80076; 80202; 81003; 82308; 82553; 82607; 82947; 83605; 83735; 83880; 84132; 84443; 84484; 85025; 85027; 85610; 85730; 87040; 93005; 93312; 94640; 94760; 96361; 96365; 96367; 99285; J0692; J2250; J2543; J2920; J3010; J3260; J3370; J3475

== ENCOUNTER → 2016-12-18 | Outpatient (CLI) | payer OTHER ==
[~2016-12-18] MED LIST changes: +ALBUTEROL2.5 MG/3 M INH; +ALBUTEROL20 ml INH; +AMLODIPINE BESYL5 MG PO; +BENADRYL ALLERG25 M1 PO; +BROVANA15 MCG/2 M INH; +BUDESONIDE0.5 MG/2 M INH; +COMPAZINE5 M1 PO; +COMPAZINE5 M2 PO; +DIPHENHYDRAMINE25 M1 PO; +DUONEB INH; +DURAGESIC1 EAC1 TOP; +FENTANYL1 EAC1 TOP; +FERROUS GLUCON324 M1 PO; +FLUOXETINE HCL20 M1 PO; +FOLIC ACID1 MG PO; +FUROSEMIDE40 MG PO; +KCL PO; +LASIX20 MG PO; +LEVAQUIN750 MG PO; +LEVOTHYROXINE50 MCG PO; +LOPRESSOR PO; +MAG-OX 400400 M1 PO; +MIRALAX17 GM PO; +NORVASC PO; +ONDANSETRON ODT4 MG PO; +OXYCODONE HCL15 MG PO; +PANTOPRAZOLE SO40 MG PO; +PATIENT'S PHARMACY; +PHENERGAN25 M1 PO; +PHENERGAN25 MG PO; +POLYETHYLENE G500 G1 PO; +PREDNISONE; +PREDNISONE PO; +PREDNISONE2.5 MG PO; +PREDNISONE5 M1 PO; +PROTONIX PO; +PROZAC10 MG PO; +SOTALOL AF80 M1 PO; +SPIRIVA18 MCG INH; +TYL325 PO; +VALIUM10 M1 PO; +WARFARIN SODIUM3 M1 PO; +XANAX1 MG PO
--- NOTE | ~2016-12-18 | XA166 ---
[facility] A Service of [facility] RADIOLOGY TEXT RESULTS PATIENT: VIBHA PRESTON LOCATION: CIVR : [birth year] UNIT #: [id number] AGE: [address]: Alejandro Chang MD SEX: F ORDER DR: [id number] [id number] [facility]. [place], [place] [address] [id number] O MR#: [id number] Acc #: [id number] NAME: VIBHA PRESTON : 1955 SEX: F STUDY DATE/TIME: 12/18/2016 14:36 UNIT: CIVR ROOM: STUDY DESCRIPTION: XA PICC Line Placement WO Port Attending Physician: Alejandro Chang M.D. Referring Physician: Alejandro Chang M.D. Ordering Physician: Alejandro Chang M.D. Primary Care Physician: Cookie Chao M.D. MEDICAL IMAGING REPORT This report is preliminary unless electronic signature is present EXAM Right-sided PICC line placement INDICATION Need for IV access in a patient with a history of lung cancer and postobstructive pneumonia diagnosed in the right lung in October of 2016. PRE-PROCEDURE The procedure was explained to the patient and/or patient dental sales representative including risks, benefits, potential complications and potential for alternative forms of treatment. Informed consent was obtained, and prior to initiating the procedure a formal timeout procedure was performed. PROCEDURE Using full standard sterile barrier technique, including caps, gowns, gloves, masks, as well as sterile skin preparation and standard sterile draping, the right arm was prepped and draped in the usual fashion, and real-time sterile ultrasound guidance was used to localize an arm vein and to confirm vessel patency. A hard copy ultrasound image was recorded. After local anesthesia with 1% Xylocaine, the vein was punctured using real-time sterile ultrasound guidance, and an 0.018 guidewire was advanced into the superior vena cava, using fluoroscopic guidance. A 4 Irish single-lumen PICC was then measured and deployed with the tip positioned in the superior vena cava. The position of the line was documented with a radiographic image. The line was secured in place with an adhesive dressing and an antibiotic patch was applied. Total fluoro time was 0.1 minutes. AK was 1 mGy. IMPRESSION Successful placement of a 4 Irish single lumen PowerPICC via the right arm under ultrasound and fluoroscopic guidance. The tip of the PICC is in good position in the superior vena cava. [facility] A Service of [facility] RADIOLOGY TEXT RESULTS PATIENT: VIBHA PRESTON LOCATION: [facility] : [birth year] UNIT #: [id number] AGE: [address]: Alejandro Chang MD SEX: F ORDER DR: Dictated by... Lidia Mitchell M.D. THIS IS AN ELECTRONICALLY VERIFIED REPORT Lidia Mitchell M.D. at 12/20/2016 2:44 PM AFF/rnr TD: 12/19/2016 13:22 JOB #: [id number] MEDICAL IMAGING REPORT Page 1 of 1 COPY
== END | disposition home or self-care (01) ==
LOC: CIVR 13:32
DX: C34.11 Malignant neoplasm of upper lobe, right bronchus or lung (principal); C79.31 Secondary malignant neoplasm of brain; Z45.2 Encounter for adjustment and management of vascular access device
CPT/HCPCS: 76937; 77001; C1751; J1642